=== PATIENT | female | born 1955 | race Caucasian/White ===

== ENCOUNTER → 2016-07-31 | Outpatient (CLI) | payer MEDICARE ==
--- NOTE | 2016-07-31 12:16 | XR ---
EXAMINATION TYPE: XR Hip Complete LT DATE OF EXAM ORDERED: 07/31/2016 12:07 PM HISTORY: M25.552 pain in left hip joint. COMPARISON: None. FINDINGS: There is mild superior joint space loss. There is some subchondral sclerosis of the acetab ulum. There is slight overgrowth of the acetabulum. No fracture, dislocation or other acute osseous l esion is seen. IMPRESSION: 1. NO ACUTE OSSEOUS LESION. 2. MILD DEGENERATIVE CHANGE.
== END | disposition home or self-care (01) ==
LOC: RADXRMAIN 11:57
PROVIDERS: ATTEND Internal Medicine
DX: M25.852 Other specified joint disorders, left hip (principal); M25.552 Pain in left hip
CPT/HCPCS: 73502

== ENCOUNTER → 2016-11-03 | Outpatient (CLI) | payer MEDICARE ==
--- NOTE | 2016-11-03 13:53 | NM ---
EXAMINATION TYPE: NM bone 3 phase DATE OF EXAM: 11/03/2016 COMPARISON: NONE HISTORY: Open sore on the right foot. Triple phase bone scintigraphy was performed following the injection of25.7 mCi Tc 99m MDP. Immediat e images and 5 hours post injection images acquired. FINDINGS: There is increased flow and pool activity in the medial aspect of the right ankle. Delayed static activity shows a great deal of abnormal activity overlying the right forefoot. IMPRESSION: I CANNOT EXCLUDE OSTEOMYELITIS INVOLVING THE PROXIMAL RIGHT FOREFOOT.
== END | disposition home or self-care (01) ==
LOC: RADNMMAIN 07:44
PROVIDERS: ATTEND Podiatrist
DX: M86.8X8 Other osteomyelitis, other site (principal)
CPT/HCPCS: 78315; A9503

== ENCOUNTER → 2016-11-10 | Outpatient (CLI) | payer MEDICARE ==
--- NOTE | 2016-11-10 12:03 | US ---
LOWER EXTREMITY VENOUS INSUFFICIENCY SIDE PERFORMED: Bilateral 1) Color flow is present and patency is documented in the following vessels. No DVT or SVT is noted . EIV Common Femoral Vein Deep Femoral Vein Femoral Vein Popliteal Vein Proximal Calf Veins Greater Saph Vein Upper Small Saph Vein 2) No venous reflux noted. IMPRESSION: doppler imaging performed of the deep veins of the lower extremities. There is normal fl ow, compressibility, vascular waveforms bilaterally. No deep venous thrombosis or evident venous refl ux.
--- NOTE | 2016-11-15 10:18 | P.ARTDOP ---
Arterial Doppler LOWER EXTREMITY ARTERIAL DOPPLER: DATE OF SERVICE: 11/10/2016 Reason for study: Bilateral leg pain, right foot ulcer. Doppler waveforms: Multiphasic bilaterally throughout. Pulse volume recording: Normal configuration throughout. Pressure gradients: None. Ankle-brachial indices: Greater than 1 bilaterally. Toe pressures: 91 on the right, 126 on the left Impression: Normal study.
== END | disposition home or self-care (01) ==
LOC: RADUSWWP 09:03
PROVIDERS: ATTEND Podiatrist
DX: R22.41 Localized swelling, mass and lump, right lower limb (principal); M79.605 Pain in left leg; E63.8 Other specified nutritional deficiencies; E13.621 Other specified diabetes mellitus with foot ulcer
CPT/HCPCS: 93923; 93970

== ENCOUNTER → 2016-12-05 | Outpatient (CLI) | payer MEDICARE ==
[2016-12-05 17:13] LABS: Non-African American GFR(MDRD) >60 (>60 ml/min/1.73 sqM)
== END | disposition home or self-care (01) ==
LOC: LABWHC1 16:37
PROVIDERS: ATTEND Podiatrist
DX: Z01.812 Encounter for preprocedural laboratory examination (principal)
CPT/HCPCS: 36415; 82565

== ENCOUNTER → 2016-12-08 | Outpatient (CLI) | payer MEDICARE ==
--- NOTE | 2016-12-08 16:17 | MR ---
EXAMINATION TYPE: MR foot RT wo/w con DATE OF EXAM: 12/08/2016 COMPARISON: Three-phase bone scan dated 11/03/2016. Radiographs of the right foot dated 10/20/2016. HISTORY: Osteomyelitis per order. Nonhealing wound. CONTRAST: Standard multiplanar, multisequence MRI departmental protocol utilizing 10 mL intravenous MultiHance gadolinium contrast. FINDINGS: There is susceptibility artifact from the medial fixation plate and transcortical screws obscuring vi sualization of the first metatarsal phalangeal joint and proximal metatarsal. Surrounding heterotopic ossification is present. Additionally susceptibility artifact from fusion hardware of the second pro ximal interphalangeal joint also limits evaluation of this region. Hypertrophic osseous and extensive arthropathy at the second metatarsophalangeal joint is demonstrated as on the prior radiograph. Low T1 signal is seen within the subcutaneous soft tissues directly inferior and lateral to the dista l first metatarsal and metatarsal phalangeal joint. No subcutaneous emphysema is seen within the soft tissue swelling. No abnormal bone marrow signal is seen of the first distal metatarsal or proximal p halanx to suggest bone marrow replacement process such as osteomyelitis. Some enhancement is seen of the subcutaneous soft tissue swelling, which likely relates to hyperemia and increased vascular perme ability. Similar change is seen at the base of the proximal phalanx dorsally without abnormal T1 sign al of the adjacent phalanx. Osseous cystic changes at the first metatarsophalangeal joint, second metatarsophalangeal joint and t alar dome posteriorly are present from degenerative change. Flexor and extensor tendons as well as tendons of the lateral compartment appear overall intact. Achi lles tendon is also intact. Spring ligament, anterior talofibular ligament, and posterior talofibular ligament also appear intact. Lisfranc ligament is difficult to visualize secondary to susceptibility artifact. IMPRESSION: 1. Phlegmonous and subcutaneous soft tissue swelling focally directly inferior and lateral to the dis serg first metatarsal and metatarsophalangeal joint and at the dorsal aspect of the first metatarsal p halangeal joint with no abnormal underlying bone marrow signal of the adjacent osseous structures to suggest osteomyelitis. Mild enhancement of the soft tissues is seen which likely relates to local hyp eremia and increased vascular permeability. 2. Limited visualization of the proximal first metatarsal and second proximal interphalangeal joint s econdary to susceptibility artifact generated by surgical hardware. 3. Osteochondral defect of the posterior lateral talar dome measuring 6 mm and second area of subchon dral bone marrow edema which may relate to a second osteochondral defect of the posterior mid talar d ome. Stability is uncertain given the technique. If there is clinical concern for instability MR ankl e could be performed.
== END | disposition home or self-care (01) ==
LOC: RADMRIMAIN 14:39
PROVIDERS: ATTEND Internal Medicine Infectious Disease
DX: M21.961 Unspecified acquired deformity of right lower leg (principal); R22.41 Localized swelling, mass and lump, right lower limb
CPT/HCPCS: 73720; A9577

== ENCOUNTER → 2019-09-16 | Outpatient (CLI) | payer MEDICARE ==
--- NOTE | 2019-09-16 11:55 | XR ---
EXAMINATION TYPE: XR chest 2V DATE OF EXAM: 09/16/2019 COMPARISON: 02/06/2012 INDICATION: Community-acquired pneumonia TECHNIQUE: Frontal and lateral views of the chest are obtained. FINDINGS: The heart size is normal. The pulmonary vasculature is normal. Suspicious infiltrates are not evident. Note is made of bilateral shoulder prostheses. IMPRESSION: 1. No acute pulmonary process.
== END | disposition home or self-care (01) ==
LOC: RADXRMAIN 11:33
PROVIDERS: ATTEND Internal Medicine
DX: J18.9 Pneumonia, unspecified organism (principal)
CPT/HCPCS: 71046

== ENCOUNTER 2019-10-26 11:00 | Inpatient (IN) | payer MEDICARE ==
[2019-10-26] MEDS ORDERED: ACETAMINOPHEN TAB 500 MG TAB PO STA (11:16)
[2019-10-26] MEDS ORDERED: IPRATROPIUM-ALBUTEROL 3 ML NEB INHALATION STA ×2 (11:20→13:55)
--- NOTE | 2019-10-26 11:24 | ED ---
General Adult HPI - General Source: patient, RN notes reviewed, old records reviewed Mode of arrival: wheelchair Limitations: no limitations <Leslie Kramer - Last Filed: 10/26/19 14:14> <Jun Davis - Last Filed: 10/26/19 14:47> - General Chief complaint: Fever Stated complaint: fall, back pain Time Seen by Provider: 10/26/19 11:06 - History of Present Illness Initial comments: Patient is a 64-year-old female who presents emergency department today for evaluation with complaint of fall on Sunday after slightly slipped on a tote bag. Patient reports she fell onto her back and hit her right ribs. She repo rts that she's been having some pain with movement difficulty breathing since that time. Patient was also found to have a fever upon arrival to the emergency department of 103. She complains of feeling dehydrated. She denies any specific abdominal pain. She reports that she was recently treated for pneumonia. She is also had a history of hysterectomy in July and developed the pneumonia afterward. She reports she's been treated with this for with antibiotics. She also has a boot on the right leg for a chronic wound. At this time Patient states she is not taking anything for pain. (Leslie Kramer) - Related Data Home Medications Medication Instructions Recorded Confirmed ALPRAZolam 1 mg PO DAILY PRN 10/20/16 10/26/19 DULoxetine HCL [Cymbalta] 120 mg PO HS 10/20/16 10/26/19 Pramipexole [Mirapex] 1 mg PO HS 10/20/16 10/26/19 lamoTRIgine 150 mg PO HS 10/20/16 10/26/19 Albuterol Sulfate [Ventolin HFA] 1 - 2 puff INHALATION RT-Q6H PRN 10/26/19 10/26/19 Aspirin EC [Ecotrin Low Dose] 81 mg PO HS 10/26/19 10/26/19 Biotin 5 mg PO DAILY 10/26/19 10/26/19 Fluticasone/Vilanterol [Breo 1 puff INHALATION RT-DAILY 10/26/19 10/26/19 Ellipta 100-25 Mcg Inhaler] INSULIN ASPART (NovoLOG) [NovoLOG 8 unit SQ TID BETWEEN MEALS 10/26/19 10/26/19 (formulary)] INSULIN ASPART (NovoLOG) [NovoLOG 16 unit SQ AC-TID 10/26/19 10/26/19 (formulary)] Insulin Glargine,Hum.rec.anlog 40 unit SQ HS 10/26/19 10/26/19 [Lantus Solostar] Losartan Potassium [Cozaar] 25 mg PO HS 10/26/19 10/26/19 Multivitamins, Thera [Multivitamin 1 tab PO DAILY 10/26/19 10/26/19 (formulary)] Pramipexole [Mirapex] 1 mg PO HS 10/26/19 10/26/19 hydrOXYzine HCL [Atarax] 20 mg PO HS 10/26/19 10/26/19 Allergies Allergy/AdvReac Type Severity Reaction Status Date / Time metformin AdvReac Intermediate Diarrhea Verified 10/26/19 11:28 Review of Systems ROS Other: All systems not noted in ROS Statement are negative. <Leslie Kramer - Last Filed: 10/26/19 14:14> ROS Other: All systems not noted in ROS Statement are negative. <Jun Davis - Last Filed: 10/26/19 14:47> ROS Statement: Those systems with pertinent positive or pertinent negative responses have been documented in the HPI. Past Medical History Past Medical History: Asthma, Heart Failure, Diabetes Mellitus, Osteoarthritis (OA), Sleep Apnea/CPAP/BIPAP Additional Past Medical History / Comment(s): DEPRESSION, ANXIETY,NEUROPATHY,RESTLESS LEG SYNDROME History of Any Multi-Drug Resistant Organisms: None Reported Past Surgical History: Cholecystectomy, Heart Catheterization, Orthopedic Gunjan eileen Additional Past Surgical History / Comment(s): ARTHROSCOPIC MENICUS REPAIN - 2006, TOTAL LEFT KNEE REPLACEMENT 2-2007,,REVERSE RT SHOULDER REPLACEMENT ,LEFT SHOULD REPLACEMENT 2011, BUNION REMOVAL, REPAIRED DISLOCATED SECOND TOE & hAMMER TOE MIDDLE TOE 2015, Past Anesthesia/Blood Transfusion Reactions: No Reported Reaction Past Psychological History: Anxiety, Depression Smoking Status: Current some day smoker - Past Family History Father Family Medical History: COPD Mother Family Medical History: COPD Sister(s) Family Medical History: COPD, Fibromyalgia, Myocardial Infarction (CA), Osteoarthritis (OA) Brother(s) Family Medical History: COPD <Leslie Kramer - Last Filed: 10/26/19 14:14> General Exam Limitations: no limitations General appearance: alert, in no apparent distress Head exam: Present: atraumatic Eye exam: Present: normal appearance, PERRL, EOMI. Absent: scleral icterus, conjunctival injection, periorbital swelling ENT exam: Present: normal exam Neck exam: Present: normal inspection. Absent: tenderness, meningismus, lymphadenopathy Respiratory exam: Present: wheezes (Chest wheezing bilaterally.). Absent: normal lung sounds bilaterally, respiratory distress, rales, rhonchi, stridor Cardiovascular Exam: Present: regular rate, normal rhythm, normal heart sounds. Absent: systolic murmur, diastolic murmur, rubs, gallop, clicks GI/Abdominal exam: Present: soft, normal bowel sounds. Absent: distended, tenderness, guarding, rebound, rigid Extremities exam: Present: normal inspection, full ROM, normal capillary refill. Absent: tenderness, pedal edema, joint swelling, calf tenderness Right Lower Leg exam: Present: normal inspection, full ROM Ankle exam: Present: normal inspection, full ROM Foot/Toe exam: Present: full ROM. Absent: normal inspection (Patient has 2 separate foot ulcerations measuring 2 cm x 3 cm over the plantar distal metatarsals. No significant drainage. There is warm surrounding the foot.) Neurovascular tendon exam: Present: no vascular compromise Gait: observed and normal Back exam: Present: normal inspection Neurological exam: Present: alert, oriented X3, CN II-XII intact Psychiatric exam: Present: normal affect, normal mood Skin exam: Present: warm, dry, intact, normal color. Absent: rash <Leslie Kramer - Last Filed: 10/26/19 14:14> - General Exam Comments Initial Comments: 64-year-old female. Alert and oriented. (Leslie Kramer) Course <Jun Davis - Last Filed: 10/26/19 14:47> Vital Signs 10/26/19 10/26/19 10/26/19 11:03 12:07 12:12 Temperature 102.7 F H Pulse Rate 122 H 102 H 106 H Respiratory 26 H 20 Rate Blood Pressure 127/68 O2 Sat by Pulse 94 L 98 Oximetry 10/26/19 10/26/19 10/26/19 12:21 12:51 13:45 Temperature 101 F H 99.3 F Pulse Rate 111 H 103 H 101 H Respiratory 20 20 Rate Blood Pressure 138/116 126/80 O2 Sat by Pulse 93 L 95 Oximetry 10/26/19 10/26/19 14:09 14:27 Temperature Pulse Rate 113 H 98 Respiratory Rate Blood Pressure O2 Sat by Pulse Oximetry - Reevaluation(s) Reevaluation #1: 10/26/19 14:45 Patient does meet sepsis criteria diagnosed at 1445. Blood culture and IV fluid bolus has been ordered off of ideal body weight of 64 kg. IV antibiotics ordered. (Jun Davis) Medical Decision Making - Lab Data Result diagrams: 10/26/19 11:22 10/26/19 11:22 - Radiology Data Radiology results: report reviewed <Leslie Kramer - Last Filed: 10/26/19 14:14> - Lab Data Result diagrams: 10/26/19 11:22 10/26/19 11:22 - Radiology Data Radiology results: report reviewed (Computed tomography scan of abdomen and pelvis shows possible colitis. Tiny kidney lesion. CT angios of the chest negative for PE.), image reviewed (Chest x-ray shows no acute process) <Jun Davis - Last Filed: 10/26/19 14:47> - Medical Decision Making 8-year-old female presents emergency department initial chief complaint of fall on Sunday and right-sided back pain. Pain is worse with certain movements. Patient arrived to emergency Department with fever 103+ cardiac and hypoxic. She has history of asthma and was wheezing. Patient does report a recent surgical history and initial concern was for possible PE. Lab work was obtained. She does have significant leukocytosis and a positive d-dimer. CT chest injury was completed as well as abdomen and pelvis. This was negative for PE. CT on pelvis is currently pending upon sign out to Dr. Davis. I did give the Patient 1 g of Rocephin at this time and was given a 2 L bolus. Patient was given breathing treatments with her known history of asthma. Patient was tested for Covid. also has evidence of diabetic ulcers over the right foot which she is in a walking boot. Culture was completed for this as well. (Leslie Kramer) Patient reexamined and reevaluated by myself, Dr. Davis. Patient resting comfortably in bed. Patient does have right foot ulcer, stage II/stage III however there is not surrounding evidence of cellulitis or infection. Patient updated on results and plan. Case was discussed in detail with Dr. Lamb, who will admit for hospital call. Patient will be treated for colitis. There is still moderate concern for possible coronavirus. Admission orders written. (Jun Davis) - Lab Data Lab Results 10/26/19 10/26/19 10/26/19 Range/Units 11:22 11:22 11:22 WBC 18.7 H (3.8-10.6) k/uL RBC 4.57 (3.80-5.40) m/uL Hgb 13.7 (11.4-16.0) gm/dL Hct 39.9 (34.0-46.0) % MCV 87.3 (80.0-100.0) fL MCH 30.0 (25.0-35.0) pg MCHC 34.4 (31.0-37.0) g/dL RDW 13.9 (11.5-15.5) % Plt Count 256 (150-450) k/uL Neutrophils % 92 % Lymphocytes % 3 % Monocytes % 4 % Eosinophils % 1 % Basophils % 0 % Neutrophils # 17.2 H (1.3-7.7) k/uL Lymphocytes # 0.5 L (1.0-4.8) k/uL Monocytes # 0.7 (0-1.0) k/uL Eosinophils # 0.2 (0-0.7) k/uL Basophils # 0.1 (0-0.2) k/uL PT 10.9 (9.0-12.0) sec INR 1.1 (<1.2) APTT 24.5 (22.0-30.0) sec D-Dimer 1.54 H (<0.60) mg/L FEU Sodium 130 L (137-145) mmol/L Potassium 4.7 (3.5-5.1) mmol/L Chloride 97 L (98-107) mmol/L Carbon Dioxide 21 L (22-30) mmol/L Anion Gap 12 mmol/L BUN 21 H (7-17) mg/dL Creatinine 1.16 H (0.52-1.04) mg/dL Est GFR (CKD-EPI)AfAm 59 (>60 ml/min/1.73 sqM) Est GFR (CKD-EPI)NonAf 51 (>60 ml/min/1.73 sqM) Glucose 268 H (74-99) mg/dL Plasma Lactic Acid Jan (0.7-2.0) mmol/L Calcium 9.4 (8.4-10.2) mg/dL Magnesium 1.3 L (1.6-2.3) mg/dL Total Bilirubin 1.2 (0.2-1.3) mg/dL AST 36 (14-36) U/L ALT 19 (4-34) U/L Alkaline Phosphatase 82 (38-126) U/L Lactate Dehydrogenase 836 H (313-618) U/L Troponin I (0.000-0.034) ng/mL C-Reactive Protein 192.3 H (<10.0) mg/L NT-Pro-B Natriuret Pep pg/mL Total Protein 7.9 (6.3-8.2) g/dL Albumin 4.4 (3.5-5.0) g/dL Urine Color Urine Appearance (Clear) Urine pH (5.0-8.0) Ur Specific Darling (1.001-1.035) Urine Protein (Negative) Urine Glucose (UA) (Negative) Urine Ketones (Negative) Urine Blood (Negative) Urine Nitrite (Negative) Urine Bilirubin (Negative) Urine Urobilinogen (<2.0) mg/dL Ur Leukocyte Esterase (Negative) Urine RBC (0-5) /hpf Urine WBC (0-5) /hpf Ur Squamous Epith Cells (0-4) /hpf Hyaline Casts (0-2) /lpf Urine Mucus (None) /hpf 10/26/19 10/26/19 10/26/19 Range/Units 11:22 11:22 11:22 WBC (3.8-10.6) k/uL RBC (3.80-5.40) m/uL Hgb (11.4-16.0) gm/dL Hct (34.0-46.0) % MCV (80.0-100.0) fL MCH (25.0-35.0) pg MCHC (31.0-37.0) g/dL RDW (11.5-15.5) % Plt Count (150-450) k/uL Neutrophils % % Lymphocytes % % Monocytes % % Eosinophils % % Basophils % % Neutrophils # (1.3-7.7) k/uL Lymphocytes # (1.0-4.8) k/uL Monocytes # (0-1.0) k/uL Eosinophils # (0-0.7) k/uL Basophils # (0-0.2) k/uL PT (9.0-12.0) sec INR (<1.2) APTT (22.0-30.0) sec D-Dimer (<0.60) mg/L FEU Sodium (137-145) mmol/L Potassium (3.5-5.1) mmol/L Chloride (98-107) mmol/L Carbon Dioxide (22-30) mmol/L Anion Gap mmol/L BUN (7-17) mg/dL Creatinine (0.52-1.04) mg/dL Est GFR (CKD-EPI)AfAm (>60 ml/min/1.73 sqM) Est GFR (CKD-EPI)NonAf (>60 ml/min/1.73 sqM) Glucose (74-99) mg/dL Plasma Lactic Acid Jan 2.1 H* (0.7-2.0) mmol/L Calcium (8.4-10.2) mg/dL Magnesium (1.6-2.3) mg/dL Total Bilirubin (0.2-1.3) mg/dL AST (14-36) U/L ALT (4-34) U/L Alkaline Phosphatase (38-126) U/L Lactate Dehydrogenase (313-618) U/L Troponin I 0.022 (0.000-0.034) ng/mL C-Reactive Protein (<10.0) mg/L NT-Pro-B Natriuret Pep 539 pg/mL Total Protein (6.3-8.2) g/dL Albumin (3.5-5.0) g/dL Urine Color Urine Appearance (Clear) Urine pH (5.0-8.0) Ur Specific Darling (1.001-1.035) Urine Protein (Negative) Urine Glucose (UA) (Negative) Urine Ketones (Negative) Urine Blood (Negative) Urine Nitrite (Negative) Urine Bilirubin (Negative) Urine Urobilinogen (<2.0) mg/dL Ur Leukocyte Esterase (Negative) Urine RBC (0-5) /hpf Urine WBC (0-5) /hpf Ur Squamous Epith Cells (0-4) /hpf Hyaline Casts (0-2) /lpf Urine Mucus (None) /hpf 10/26/19 Range/Units 13:48 WBC (3.8-10.6) k/uL RBC (3.80-5.40) m/uL Hgb (11.4-16.0) gm/dL Hct (34.0-46.0) % MCV (80.0-100.0) fL MCH (25.0-35.0) pg MCHC (31.0-37.0) g/dL RDW (11.5-15.5) % Plt Count (150-450) k/uL Neutrophils % % Lymphocytes % % Monocytes % % Eosinophils % % Basophils % % Neutrophils # (1.3-7.7) k/uL Lymphocytes # (1.0-4.8) k/uL Monocytes # (0-1.0) k/uL Eosinophils # (0-0.7) k/uL Basophils # (0-0.2) k/uL PT (9.0-12.0) sec INR (<1.2) APTT (22.0-30.0) sec D-Dimer (<0.60) mg/L FEU Sodium (137-145) mmol/L Potassium (3.5-5.1) mmol/L Chloride (98-107) mmol/L Carbon Dioxide (22-30) mmol/L Anion Gap mmol/L BUN (7-17) mg/dL Creatinine (0.52-1.04) mg/dL Est GFR (CKD-EPI)AfAm (>60 ml/min/1.73 sqM) Est GFR (CKD-EPI)NonAf (>60 ml/min/1.73 sqM) Glucose (74-99) mg/dL Plasma Lactic Acid Jan (0.7-2.0) mmol/L Calcium (8.4-10.2) mg/dL Magnesium (1.6-2.3) mg/dL Total Bilirubin (0.2-1.3) mg/dL AST (14-36) U/L ALT (4-34) U/L Alkaline Phosphatase (38-126) U/L Lactate Dehydrogenase (313-618) U/L Troponin I (0.000-0.034) ng/mL C-Reactive Protein (<10.0) mg/L NT-Pro-B Natriuret Pep pg/mL Total Protein (6.3-8.2) g/dL Albumin (3.5-5.0) g/dL Urine Color Yellow Urine Appearance Clear (Clear) Urine pH 5.5 (5.0-8.0) Ur Specific Darling 1.049 H (1.001-1.035) Urine Protein Trace H (Negative) Urine Glucose (UA) Negative (Negative) Urine Ketones Trace H (Negative) Urine Blood Moderate H (Negative) Urine Nitrite Negative (Negative) Urine Bilirubin Negative (Negative) Urine Urobilinogen <2.0 (<2.0) mg/dL Ur Leukocyte Esterase Negative (Negative) Urine RBC 2 (0-5) /hpf Urine WBC 2 (0-5) /hpf Ur Squamous Epith Cells 3 (0-4) /hpf Hyaline Casts 10 H (0-2) /lpf Urine Mucus Rare H (None) /hpf 10/26/19 11:38 EKG performed at 11:22 AM shows sinus tachycardia with premature atrial complexes. Nonspecific interventricular block. Possible anterolateral infarct age undetermined. Abnormal EKG. Ventricular rate of 112 bpm. Was 176 ms. QS duration is 128 ms. QT QTc is 350/447 seconds. (Leslie Kramer) - Radiology Data Chest x-rays negative for intrathoracic disease. CT chest injury is negative for PE. No pleural or pericardial effusion. Heart is minimally prominent. (Leslie Kramer) Critical Care Time Critical Care Time: Yes Total Critical Care Time: 32 <Jun Davis - Last Filed: 10/26/19 14:47> Disposition <Leslie Kramer - Last Filed: 10/26/19 14:14> Is patient prescribed a controlled substance at d/c from ED?: No Decision Time: 14:46 <Jun Davis - Last Filed: 10/26/19 14:47> Clinical Impression: Sepsis, Colitis Disposition: ADMITTED IP TO THIS HOSP Referrals: Román Haed MD [Primary Care Provider] - 1-2 days
[2019-10-26] MEDS: SODIUM CHLORIDE 0.9% 500 ML 500 ML IV SCH ×4 (12:04→14:38)
[2019-10-26 12:14] LABS: Basophils # (A) 0.1 k/uL (0-0.2); Basophils % (A) 0 %; Eosinophils # (A) 0.2 k/uL (0-0.7); Eosinophils % (A) 1 %; HCT 39.9 % (34.0-46.0); HGB 13.7 gm/dL (11.4-16.0); Lymphocytes # (A) 0.5 k/uL (1.0-4.8); Lymphocytes % (A) 3 %; MCHC 34.4 g/dL (31.0-37.0); MCV 87.3 fL (80.0-100.0); Mean Platelet Volume 7.3; Monocytes # (A) 0.7 k/uL (0-1.0); Monocytes % (A) 4 %; Neutrophils # (A) 17.2 k/uL (1.3-7.7); Neutrophils % (A) 92 %; Platelet Count 256 k/uL (150-450); RBC 4.57 m/uL (3.80-5.40); RDW 13.9 % (11.5-15.5); WBC 18.7 k/uL (3.8-10.6)
--- NOTE | 2019-10-26 12:17 | XR ---
EXAMINATION TYPE: XR chest 2V DATE OF EXAM: 10/26/2019 HISTORY: fever, rib pain. REFERENCE: Previous study dated 09/16/2019. FINDINGS: There are bilateral shoulder arthroplasties in place. Heart size upper limits of normal. The lungs are clear. Pleural spaces are clear. IMPRESSION: NO ACTIVE INTRATHORACIC DISEASE.
[2019-10-26] MEDS ORDERED: MORPHINE SULFATE 4 MG/ML SYRINGE IVP STA (12:28)
[2019-10-26 12:30] LABS: Albumin 4.4 g/dL (3.5-5.0); Calcium 9.4 mg/dL (8.4-10.2); Magnesium 1.3 mg/dL (1.6-2.3); Potassium 4.7 mmol/L (3.5-5.1); Total Bilirubin 1.2 mg/dL (0.2-1.3); Total Protein 7.9 g/dL (6.3-8.2)
[2019-10-26 12:38] LABS: INR 1.1 (<1.2); Partial Thromboplastin Time 24.5 sec (22.0-30.0); Prothrombin Time 10.9 sec (9.0-12.0)
[2019-10-26] MEDS ORDERED: cefTRIAXone IN SWFI 1,000 MG/10 ML SYRINGE IVP STA (12:46)
[2019-10-26 12:48] LABS: D-Dimer 1.54 mg/L FEU (<0.60)
[2019-10-26] MEDS ORDERED: IBUPROFEN 600 MG TAB PO STA (12:50)
[2019-10-26 12:59] LABS: C Reactive Protein 192.3 mg/L (<10.0)
--- NOTE | 2019-10-26 13:52 | CT ---
EXAMINATION TYPE: CT chest angio for PE DATE OF EXAM: 10/26/2019 COMPARISON: None. HISTORY: Positive d-dimer, right back pain, fall CT DLP: 3376.1 mGycm Automated exposure control for dose reduction was used. CONTRAST: CT Chest for pulmonary embolism performed with without and with IV Contrast, patient injected with 10 0 ml mL of Isovue 370. FINDINGS: There are bilateral shoulder prostheses in place. There is atelectatic change present at jacqueline th lung bases. There is no significant axillary, mediastinal, internal mammary or hilar adenopathy. There is no evidence of pulmonary embolus. The aorta is normal in caliber without evidence of dissection. There is no pleural or pericardial fluid. The heart is minimally prominent. Visualized portions of the upper abdomen are unremarkable. IMPRESSION: THIS EXAMINATION IS NEGATIVE FOR PULMONARY EMBOLUS.
[2019-10-26] MEDS ORDERED: ALBUTEROL NEBULIZED 2.5 MG/3 ML INHALATION STA (13:55)
[2019-10-26 14:02] LABS: Appearance,Urine Clear (Clear); Bilirubin,Urine Negative (Negative); Blood,Urine Moderate (Negative); Color,Urine Yellow; Glucose,Urine (UA) Negative (Negative); Hyaline Casts,Urine 10 /lpf (0-2); Ketones,Urine Trace (Negative); Leukocyte Esterase,Urine Negative (Negative); Mucus,Urine Rare /hpf; Nitrite,Urine Negative (Negative); PH, Urine 5.5 (5.0-8.0); Protein,Urine Trace (Negative); RBC,Urine 2 /hpf (0-5); Squamous Epithelial Cell,Urine 3 /hpf (0-4); Urobilinogen,Urine <2.0 mg/dL (<2.0); WBC,Urine 2 /hpf (0-5)
--- NOTE | 2019-10-26 14:11 | CT ---
EXAMINATION TYPE: CT abdomen pelvis w con DATE OF EXAM: 10/26/2019 REFERENCE: NONE HISTORY: positive d-dimer, right back pain HISTORY: Positive D-dimer, right back pain CT DLP: 3376.1 mGy Automated exposure control for dose reduction was used. TECHNIQUE: Helical acquisition through the abdomen and pelvis was obtained following the oral ingesti on of without Oral Contrast and following intravenous administration of 100 ml mL of Isovue 370. The data was reformatted in axial, coronal and sagittal projections. FINDINGS: There is dependent atelectasis in the dependent portions of both lungs. There is no pleura l or pericardial fluid. The heart is mildly enlarged. There is a partial eventration of the right hemidiaphragm. The gallbladder is been removed. The liver is enlarged measuring 20 cm. The spleen is unremarkable. Both adrenal glands are normal. Both kidneys demonstrate function right kidney is normal. There is a low attenuating, 7 mm lesion in the mid polar region of the left kidney too small accurately characterize. This is likely a small cys t. The pancreas is unremarkable. There is no significant retroperitoneal, iliac or inguinal adenopathy. The bladder is unremarkable. There is some thickening of the sigmoid: In part of the descending colon. This makes assessment of th e bowel wall difficult. It would be difficult to exclude colitis. The appendix is unremarkable. Small bowel loops are of normal caliber. There is no free fluid and no free air. There is degenerative disc disease, facet arthropathy and mil d hypertrophic spondylosis within the spine. IMPRESSION: 1. SOME THICKENING OF THE LEFT SIDE OF THE COLON. PLEASE CORRELATE TO EXCLUDE COLITIS. 2. MILD CARDIOMEGALY. 3. HEPATOMEGALY. 4. TINY LESION IN THE MID POLAR REGION OF THE LEFT KIDNEY TOO SMALL TO CHARACTERIZE. THIS COULD BE FU RTHER INVESTIGATED WITH ULTRASOUND. 5. DEGENERATIVE CHANGES WITHIN THE SPINE.
[2019-10-26 14:15] LABS: Specific Gravity,Urine 1.049 (1.001-1.035)
[2019-10-26] MEDS ORDERED: NALOXONE 0.4 MG/ML 1 ML VIAL IV PRN (14:48)
[2019-10-26] MEDS: SODIUM CHLORIDE 0.9% 1,000 ML IV SCH (15:11)
--- NOTE | 2019-10-26 15:27 | XR ---
EXAMINATION TYPE: XR foot complete RT DATE OF EXAM: 10/26/2019 COMPARISON: 10/20/2016 HISTORY: Nonhealing wound TECHNIQUE: 3 views. There is moderate spurring at the first and second MP joints. There is previous surgery with plates f ixating the first and second metatarsals. There is a pain in the proximal phalanx of the second toe. There is a plantar calcaneal spur. There is some soft tissue swelling of the forefoot. Impression Foot surgery. Mild soft tissue swelling. No definite sign of osteomyelitis. There is progression of t he arthritic disease at the first MP joint compared to old exam.
[2019-10-26] MEDS ORDERED: AMPICILLIN-SULBACTAM 3 GM in SODIUM CHLORIDE 0.9% 100 ML IVPB SCH (16:00)
[2019-10-26] MEDS: MORPHINE SULFATE 4 MG/ML SYRINGE IV PRN (17:01)
[2019-10-26] MEDS ORDERED: VANCOMYCIN IV PER PHARMACY 1 EACH MISC MISCELLANE PRN (17:15)
[2019-10-26] MEDS ORDERED: ONDANSETRON 4 MG/2 ML VIAL IVP PRN (17:43)
[2019-10-26] MEDS ORDERED: MELATONIN 3 MG TABLET PO PRN (17:43)
[2019-10-26] MEDS ORDERED: VANCOMYCIN 2,000 MG in SODIUM CHLORIDE 0.9% 500 ML 500 ML IVPB ONE (17:45)
[2019-10-26] MEDS ORDERED: ALBUTEROL NEBULIZED 2.5 MG/3 ML INHALATION PRN (17:48)
[2019-10-26] MEDS ORDERED: CYCLOBENZAPRINE 5 MG TAB PO PRN (17:48)
--- NOTE | 2019-10-26 17:51 | P.HPIM ---
History of Present Illness H&P Date: 10/26/19 Chief Complaint: right rib pain Patient is a 64-year-old female history of heart failure, diabetes mellitus, obstructive sleep apnea, and arthritis who presented to the emergency department with complaints of pain in her ribs and back with movement and noelle athing. On arrival to the ER she was found be febrile with a temperature of 102.7, pulse 122, respirations 26, and blood pressure 127/68. Laboratory analysis showed white blood cell count of 18.7 with lymphopenia of 0.5, d-dimer 1.54, sodium 130, BUN 21, creatinine 1.16, lactic acid 2.1, magnesium 1.3, LDH 836, CRP 192, troponin negative, BNP 539. Urinalysis is negative. Chest x-ray showed no active intrathoracic disease. CT of the chest showed no evidence of pulmonary embolism and no acute intrathoracic process. CT of the abdomen and pelvis showed left-sided thickening of the colon with probable colitis, mild cardiomegaly, hepatomegaly, and a lesion in the left kidney too small to tri racterize along with degenerative changes in the spine. Right foot x-ray did not sow any osteomyelitis, but did demonstrate mild soft tissue swelling. Fall 2 days ago due to catching her L foot on a plastic tote bag. Fell on to her butt. Now right sided back and rib pain worse with movement that has been increasing. Was able to take some percocet at home and tried her TENS unit neither of which help. Worse with movement and deep breathing. Fevers starting last evening 103 at home. No shortness of breath + cough, white in color X 2 days No runny/ stuffy nose, + purulent drainage from eye No N/V, No D/C, No change in Urination 2 wounds on bottom of the right foot, due to have skin grafts in october, Related to diabetic neuropathy No AMAYA, + some neck pain related to fall. No chest pain. No fainting or syncope. Hysterectomy in July and pneumonia after wards. Dr. 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 Lives alone, no known COVID Contacts. Review of Systems Pertinent positives and negatives as discussed in HPI, a complete review of systems was performed and all other systems are negative. Past Medical History Past Medical History: Asthma, Heart Failure, Diabetes Mellitus, Osteoarthritis (OA), Sleep Apnea/CPAP/BIPAP Additional Past Medical History / Comment(s): DEPRESSION, ANXIETY,NEUROPATHY,RESTLESS LEG SYNDROME History of Any Multi-Drug Resistant Organisms: None Reported Past Surgical History: Cholecystectomy, Heart Catheterization, Orthopedic Surgery Additional Past Surgical History / Comment(s): ARTHROSCOPIC MENICUS REPAIN - 2006, TOTAL LEFT KNEE REPLACEMENT 2-2007,,REVERSE RT SHOULDER REPLACEMENT ,LEFT SHOULD REPLACEMENT 2011, BUNION REMOVAL, REPAIRED DISLOCATED SECOND TOE & hAMMER TOE MIDDLE TOE 2015, RIGHT TOTAL KNEE Past Anesthesia/Blood Transfusion Reactions: No Reported Reaction Past Psychological History: Anxiety, Depression Smoking Status: Current some day smoker Past Alcohol Use History: Occasional Additional History: Lives alone. No cane or walker - Past Family History Father Family Medical History: COPD Mother Family Medical History: COPD Sister(s) Family Medical History: COPD, Fibromyalgia, Myocardial Infarction ([place]), Osteoarthritis (OA) Brother(s) Family Medical History: COPD Medications and Allergies Home Medications Medication Instructions Recorded Confirmed Type ALPRAZolam 1 mg PO DAILY PRN 10/20/16 10/26/19 History DULoxetine HCL [Cymbalta] 120 mg PO HS 10/20/16 10/26/19 History Pramipexole [Mirapex] 1 mg PO HS 10/20/16 10/26/19 History lamoTRIgine 150 mg PO HS 10/20/16 10/26/19 History Albuterol Sulfate [Ventolin HFA] 1 - 2 puff INHALATION RT-Q6H PRN 10/26/19 10/26/19 History Aspirin EC [Ecotrin Low Dose] 81 mg PO HS 10/26/19 10/26/19 History Biotin 5 mg PO DAILY 10/26/19 10/26/19 History Fluticasone/Vilanterol [Breo 1 puff INHALATION RT-DAILY 10/26/19 10/26/19 History Ellipta 100-25 Mcg Inhaler] INSULIN ASPART (NovoLOG) [NovoLOG 8 unit SQ TID BETWEEN MEALS 10/26/19 10/26/19 History (formulary)] INSULIN ASPART (NovoLOG) [NovoLOG 16 unit SQ AC-TID 10/26/19 10/26/19 History (formulary)] Insulin Glargine,Hum.rec.anlog 40 unit SQ HS 10/26/19 10/26/19 History [Lantus Solostar] Losartan Potassium [Cozaar] 25 mg PO HS 10/26/19 10/26/19 History Multivitamins, Thera [Multivitamin 1 tab PO DAILY 10/26/19 10/26/19 History (formulary)] Pramipexole [Mirapex] 1 mg PO HS 10/26/19 10/26/19 History hydrOXYzine HCL [Atarax] 20 mg PO HS 10/26/19 10/26/19 History Allergies Allergy/AdvReac Type Severity Reaction Status Date / Time metformin AdvReac Intermediate Diarrhea Verified 10/26/19 11:28 Physical Exam Osteopathic Statement: *. No significant issues noted on an osteopathic structural exam other than those noted in the History and Physical/Consult. Vitals: Vital Signs Temp Pulse Resp BP Pulse Ox 10/26/19 15:00 101 H 18 115/73 97 10/26/19 14:27 98 10/26/19 14:09 113 H 10/26/19 13:45 99.3 F 101 H 20 126/80 95 10/26/19 12:51 101 F H 103 H 20 138/116 93 L 10/26/19 12:21 111 H 10/26/19 12:12 106 H 10/26/19 12:07 102 H 20 98 10/26/19 11:03 102.7 F H 122 H 26 H 127/68 94 L Intake and Output 10/26/19 10/26/19 10/26/19 06:59 14:59 22:59 Other: Weight 136.078 kg General: ill appearing, mild distress, appears at stated age, obese Derm: 2 lesions right foot approx quarter to half dollar sized with serous drainage and in boot, warm, dry Head: atraumatic, normocephalic, symmetric Eyes: EOMI, no lid lag, anicteric sclera, pupils equal round reactive to light ENT: Nose and ears atraumatic, no thrush, no pharyngeal erythema Neck: No thyromegaly, no cervical lymphadenopathy, trachea midline, supple Mouth: no lip lesion, mucus membranes moist Cardiovascular: S1S2 reg, no murmur, positive posterior tibial pulse bilateral, no edema, capillary refill less than 2 seconds Lungs: Decreased bs bilateral, no rhonchi, no rales , no accessory muscle use Abdominal: soft, nontender to palpation, no guarding, no appreciable organomegaly, normal bowel sounds Ext: no gross muscle atrophy, muscle strength 5 out of 5 in all 4 extremities grossly, no contractures, Neuro: CN II-XI grossly intact, light touch intact all 4 extremities, finger to nose within normal limits, Psych: Alert, oriented, appropriate affect Back: No spinous process tenderness, + muscle spasm right flank, no rib point tenderness Results CBC & Chem 7: 10/26/19 11:22 10/26/19 11:22 Labs: Abnormal Lab Results - Last 24 Hours (Table) 10/26/19 10/26/19 10/26/19 Range/Units 11:22 11:22 11:22 WBC 18.7 H (3.8-10.6) k/uL Neutrophils # 17.2 H (1.3-7.7) k/uL Lymphocytes # 0.5 L (1.0-4.8) k/uL D-Dimer 1.54 H (<0.60) mg/L FEU Sodium 130 L (137-145) mmol/L Chloride 97 L (98-107) mmol/L Carbon Dioxide 21 L (22-30) mmol/L BUN 21 H (7-17) mg/dL Creatinine 1.16 H (0.52-1.04) mg/dL Glucose 268 H (74-99) mg/dL Plasma Lactic Acid Jan (0.7-2.0) mmol/L Magnesium 1.3 L (1.6-2.3) mg/dL Lactate Dehydrogenase 836 H (313-618) U/L C-Reactive Protein 192.3 H (<10.0) mg/L Ur Specific [place] (1.001-1.035) Urine Protein (Negative) Urine Ketones (Negative) Urine Blood (Negative) Hyaline Casts (0-2) /lpf Urine Mucus (None) /hpf 10/26/19 10/26/19 Range/Units 11:22 13:48 WBC (3.8-10.6) k/uL Neutrophils # (1.3-7.7) k/uL Lymphocytes # (1.0-4.8) k/uL D-Dimer (<0.60) mg/L FEU Sodium (137-145) mmol/L Chloride (98-107) mmol/L Carbon Dioxide (22-30) mmol/L BUN (7-17) mg/dL Creatinine (0.52-1.04) mg/dL Glucose (74-99) mg/dL Plasma Lactic Acid Jan 2.1 H* (0.7-2.0) mmol/L Magnesium (1.6-2.3) mg/dL Lactate Dehydrogenase (313-618) U/L C-Reactive Protein (<10.0) mg/L Ur Specific [place] 1.049 H (1.001-1.035) Urine Protein Trace H (Negative) Urine Ketones Trace H (Negative) Urine Blood Moderate H (Negative) Hyaline Casts 10 H (0-2) /lpf Urine Mucus Rare H (None) /hpf Chest x-ray: report reviewed CT scan - abdomen: report reviewed CT scan - chest: report reviewed Assessment and Plan Assessment: Intractable back pain due to thorasic strain - Morphine - [place] - Flexaril SIRS undetermined etiology - My concern is osteomyelitis VS COVID, less likely coliting - CTA without pneumonia or Pulmonary embolism -CT abdomen and pelvis does show possible colitis. However patient without symptoms of colitis -Patient does have 2 right lower extremity wounds that they do not appear infected -Continue with Unasyn and vancomycin -Consult ID -Await blood cultures -Consider CT/MRI of right foot to evaluate for ostial -Repeat CRP in a.m. -Await Covid testing: Repeat LDH, d-dimer, ferritin, troponin, BNP, and CBC with differential -IV fluids Lactic acidosis -IV fluids -Folic acid until clear Hypomagnesemia -Replace and recheck in a.m. 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 Surrogate decision-maker: Brother CODE STATUS: Full DVT prophylaxis: SCDs Discussed with: Patient, nursing, ED physician Anticipated discharge date: 3-[address]: Home A total of 65 minutes was spent on the care of this complex patient more than 50% of the time was spent in counseling and care coordination.
[2019-10-26 18:14] LABS: Glucose,Whole Blood 183 mg/dL (75-99)
[2019-10-26] MEDS: MAGNESIUM SULFATE-D5W PMX 1 GM in DEXTROSE/WATER 1 100ML.BAG IVPB SCH ×3 (19:56→22:09)
[2019-10-26] MEDS: HYDROcodone/APAP 5-325MG 1 EACH TAB PO PRN (20:03)
[2019-10-26] MEDS: ALPRAZolam 1 MG TAB PO PRN (20:04)
[2019-10-26] MEDS: ALBUTEROL NEBULIZED 2.5 MG/3 ML INHALATION SCH ×2 (20:25→23:34)
[2019-10-26] MEDS: ACETAMINOPHEN TAB 325 MG TAB PO PRN (20:33)
[2019-10-26] MEDS ORDERED: PRAMIPEXOLE 1 MG TAB PO SCH (21:00)
[2019-10-26 22:14] LABS: Glucose,Whole Blood 289 mg/dL (75-99)
[2019-10-26] MEDS: INSULIN ASPART (NovoLOG) 100 UNIT/ML VIAL SQ SCH (22:24)
[2019-10-26] MEDS: PRAMIPEXOLE 1 MG TAB PO SCH (22:27)
[2019-10-26] MEDS: hydrOXYzine HCL 10 MG TAB PO SCH (22:27)
[2019-10-26] MEDS: ASPIRIN 81 MG PO SCH (22:28)
[2019-10-26] MEDS: INSULIN DETEMIR (LEVEMIR) 100 UNIT/ML SYR SQ SCH (22:36)
[2019-10-26] MEDS: DULoxetine HCL 60 MG CAPSULE.DR PO SCH (22:37)
[2019-10-26] MEDS: lamoTRIgine 100 MG TAB PO SCH (22:38)
[2019-10-26] MEDS: LOSARTAN 25 MG TAB PO SCH (22:39)
--- NOTE | 2019-10-26 23:35 | P.CONS ---
History of Present Illness - Reason for Consult Consult date: 10/26/19 Sepsis, no clear source Requesting physician: Sofia Lamb - Chief Complaint Fall 2 days ago right-sided back pain - History of Present Illness Patient is a 64-year-old female presenting to the hospital with chief complaints of pain in the upper back area that she has for the last 2 days it patient mentioned she did slipped on a total pack and fell backwards hitting her back since then she be compatible pain mostly in the upper midback area to be more of a dull aching 6-7 out of 10 and no radiation patient to denies having any headache or URI symptoms no chest pain or shortness of breath or cough no nausea no vomiting no abdominal pain no diarrhea no urinary symptoms patient also have a chronic nonhealing wound on the plantar aspect of the right foot with the patient is for couple of months now and is being treated by podiatry she not sure about her condition is specific dressing to the foot wound currently denies any pain into the foot wound area or any purulent drainage from it with the symptoms the patient has been evaluated by the physician on arrival to the patient did have a fever of 103F patient did have elevated white count of 18,000 with a left shift liver enzymes has been normal. UA was negative patient did have a CT angiogram that was negative for PE did not show any pneumonia or groundglass changes CT abdominal pelvis did show some features of her left-sided colitis the patient denies having any nausea vomiting no diarrhea , patient also have x-rays of the right foot did not show any bony changes tissue some soft tissue swelling, patient has been started on vancomycin and Unasyn and admitted to the hospital infectious disease was consulted for further management of antibiotic therapy Review of Systems Positive point has been mentioned in the HPI rest of the systems are negative Past Medical History Past Medical History: Asthma, Heart Failure, Diabetes Mellitus, Osteoarthritis (OA), Sleep Apnea/CPAP/BIPAP Additional Past Medical History / Comment(s): DEPRESSION, ANXIETY,NEUROPATHY,RESTLESS LEG SYNDROME History of Any Multi-Drug Resistant Organisms: None Reported Past Surgical History: Cholecystectomy, Heart Catheterization, Orthopedic Surgery Additional Past Surgical History / Comment(s): ARTHROSCOPIC MENICUS REPAIN 2006, TOTAL LEFT KNEE REPLACEMENT -2007,,REVERSE RT SHOULDER REPLACEMENT ,LEFT SHOULD REPLACEMENT 2011, BUNION REMOVAL, REPAIRED DISLOCATED SECOND TOE & hAMMER TOE MIDDLE TOE 2016, RIGHT TOTAL KNEE Past Anesthesia/Blood Transfusion Reactions: No Reported Reaction Past Psychological History: Anxiety, Depression Smoking Status: Current some day smoker Past Alcohol Use History: Occasional - Past Family History Father Family Medical History: COPD Mother Family Medical History: COPD Sister(s) Family Medical History: COPD, Fibromyalgia, Myocardial Infarction ([place]), Osteoarthritis ([place]) Brother(s) Family Medical History: COPD Medications and Allergies Home Medications Medication Instructions Recorded Confirmed Type ALPRAZolam 1 mg PO DAILY PRN 10/20/16 10/26/19 History DULoxetine HCL [Cymbalta] 120 mg PO HS 10/20/16 10/26/19 History Pramipexole [Mirapex] 1 mg PO HS 10/20/16 10/26/19 History lamoTRIgine 150 mg PO HS 10/20/16 10/26/19 History Albuterol Sulfate [Ventolin HFA] 1 - 2 puff INHALATION RT-Q6H PRN 10/26/19 10/26/19 History Aspirin EC [Ecotrin Low Dose] 81 mg PO HS 10/26/19 10/26/19 History Biotin 5 mg PO DAILY 10/26/19 10/26/19 History Fluticasone/Vilanterol [Breo 1 puff INHALATION RT-DAILY 10/26/19 10/26/19 History Ellipta 100-25 Mcg Inhaler] INSULIN ASPART (NovoLOG) [NovoLOG 8 unit SQ TID BETWEEN MEALS 10/26/19 10/26/19 History (formulary)] INSULIN ASPART (NovoLOG) [NovoLOG 16 unit SQ AC-TID 10/26/19 10/26/19 History (formulary)] Insulin Glargine,Hum.rec.anlog 40 unit SQ HS 10/26/19 10/26/19 History [Lantus Solostar] Losartan Potassium [Cozaar] 25 mg PO HS 10/26/19 10/26/19 History Multivitamins, Thera [Multivitamin 1 tab PO DAILY 10/26/19 10/26/19 History (formulary)] Pramipexole [Mirapex] 1 mg PO HS 10/26/19 10/26/19 History hydrOXYzine HCL [Atarax] 20 mg PO HS 10/26/19 10/26/19 History Allergies Allergy/AdvReac Type Severity Reaction Status Date / Time metformin AdvReac Intermediate Diarrhea Verified 10/26/19 11:28 Physical Exam Vitals: Vital Signs Temp Pulse Resp BP Pulse Ox 10/26/19 20:06 100.1 F H 113 H 22 149/83 98 10/26/19 19:03 99.5 F 104 H 20 150/77 98 10/26/19 17:05 99 20 124/55 96 10/26/19 16:54 98.5 F 99 20 109/91 96 10/26/19 15:00 101 H 18 115/73 97 10/26/19 14:27 98 10/26/19 14:09 113 H 10/26/19 13:45 99.3 F 101 H 20 126/80 95 10/26/19 12:51 101 F H 103 H 20 138/116 93 L 10/26/19 12:21 111 H 10/26/19 12:12 106 H 10/26/19 12:07 102 H 20 98 10/26/19 11:03 102.7 F H 122 H 26 H 127/68 94 L Intake and Output 10/26/19 10/26/19 10/26/19 06:59 14:59 22:59 Other: Weight 136.078 kg GENERAL DESCRIPTION: Middle-aged female up in bed, no distress. No tachypnea or accessory muscle of respiration use. HEENT: Shows Pallor , no scleral icterus. Oral mucous membrane is dry. No pharyngeal erythema or thrush NECK: Trachea central, no thyromegaly. LUNGS: Unlabored breathing. Clear to auscultation anteriorly. No wheeze or crackle. HEART: S1, S2, regular rate and rhythm. No loud murmur ABDOMEN: Soft, no tenderness , guarding or rigidity, no organomegaly EXTREMITIES: No edema of feet. Right foot plantar wound 2 with no significant slough tissue or any foul-smelling drainage SKIN: No rash, no masses palpable. NEUROLOGICAL: The patient is awake, alert, oriented x3, mood and affect normal. Results CBC & Chem 7: 10/26/19 11:22 10/26/19 11:22 Labs: Abnormal Lab Results - Last 24 Hours (Table) 10/26/19 10/26/19 10/26/19 Range/Units 11:22 11:22 11:22 WBC 18.7 H (3.8-10.6) k/uL Neutrophils # 17.2 H (1.3-7.7) k/uL Lymphocytes # 0.5 L (1.0-4.8) k/uL D-Dimer 1.54 H (<0.60) mg/L FEU Sodium 130 L (137-145) mmol/L Chloride 97 L (98-107) mmol/L Carbon Dioxide 21 L (22-30) mmol/L BUN 21 H (7-17) mg/dL Creatinine 1.16 H (0.52-1.04) mg/dL Glucose 268 H (74-99) mg/dL POC Glucose (mg/dL) (75-99) mg/dL Plasma Lactic Acid Jan (0.7-2.0) mmol/L Magnesium 1.3 L (1.6-2.3) mg/dL Lactate Dehydrogenase 836 H (313-618) U/L C-Reactive Protein 192.3 H (<10.0) mg/L Ur Specific [place] (1.001-1.035) Urine Protein (Negative) Urine Ketones (Negative) Urine Blood (Negative) Hyaline Casts (0-2) /lpf Urine Mucus (None) /hpf 10/26/19 10/26/19 10/26/19 Range/Units 11:22 13:48 18:10 WBC (3.8-10.6) k/uL Neutrophils # (1.3-7.7) k/uL Lymphocytes # (1.0-4.8) k/uL D-Dimer (<0.60) mg/L FEU Sodium (137-145) mmol/L Chloride (98-107) mmol/L Carbon Dioxide (22-30) mmol/L BUN (7-17) mg/dL Creatinine (0.52-1.04) mg/dL Glucose (74-99) mg/dL POC Glucose (mg/dL) 183 H (75-99) mg/dL Plasma Lactic Acid Jan 2.1 H* (0.7-2.0) mmol/L Magnesium (1.6-2.3) mg/dL Lactate Dehydrogenase (313-618) U/L C-Reactive Protein (<10.0) mg/L Ur Specific [place] 1.049 H (1.001-1.035) Urine Protein Trace H (Negative) Urine Ketones Trace H (Negative) Urine Blood Moderate H (Negative) Hyaline Casts 10 H (0-2) /lpf Urine Mucus Rare H (None) /hpf Assessment and Plan Assessment: 1- patient presented to hospital with fall and upper back pain in this patient who did have a fever leukocytosis but no obvious focus of infection in this patient who did have extensive workup including SCDs rhythm that was negative CT of abdominal pelvis with features of colitis no patient didn't have any GI symptoms patient to have right foot plantar wounds but no significant limited changes has been noticing UA has been negative, clinically doubt covid 19 in this patient with no significant respiratory symptoms and CT of the chest did not show chronic loss opacities is very common with the Covid19 infection (1) Sepsis Current Visit: Yes Status: Acute Code(s): A41.9 - SEPSIS, UNSPECIFIED ORGANISM SNOMED Code(s): 05086563 (2) Diabetic ulcer of right foot associated with diabetes mellitus due to underlying condition, with necrosis of bone Current Visit: No Status: Acute Code(s): E08.621 - DIABETES MELLITUS DUE TO UNDERLYING CONDITION W FOOT ULCER; L97.514 - NON-PRS CHRONIC ULCER OTH PRT RIGHT FOOT W NECROSIS OF BONE SNOMED Code(s): 328823061 Plan: 1-Vancomycin pharmacy to dose target trough of 15 while watching his kidney function and Vanco trough closely and Unasyn 3 g every 6 hours to continue on the tip of the culture finalized 2-local wound care to the right foot plantar wound with Aquacel silver dressing to be changed daily 3-IV fluids We will follow on clinical condition and cultures to further adjust medication if needed Thank you for this consultation will follow this patient with you
[2019-10-27] MEDS: ALBUTEROL NEBULIZED 2.5 MG/3 ML INHALATION SCH ×6 (04:16→23:46)
[2019-10-27] MEDS: AMPICILLIN-SULBACTAM 3 GM in SODIUM CHLORIDE 0.9% 100 ML IVPB SCH ×4 (06:16→23:39)
[2019-10-27 07:39] LABS: Glucose,Whole Blood 232 mg/dL (75-99)
[2019-10-27 07:48] LABS: Basophils % (A) 0 %; Eosinophils % (A) 0 %; HCT 36.5 % (34.0-46.0); HGB 12.1 gm/dL (11.4-16.0); Lymphocytes # (A) 0.4 k/uL (1.0-4.8); Lymphocytes % (A) 3 %; MCH 29.3 pg (25.0-35.0); MCHC 33.1 g/dL (31.0-37.0); MCV 88.6 fL (80.0-100.0); Mean Platelet Volume 7.5; Monocytes # (A) 0.5 k/uL (0-1.0); Monocytes % (A) 5 %; Neutrophils # (A) 10.5 k/uL (1.3-7.7); Neutrophils % (A) 91 %; Platelet Count 173 k/uL (150-450); RBC 4.12 m/uL (3.80-5.40); RDW 13.9 % (11.5-15.5); WBC 11.6 k/uL (3.8-10.6)
[2019-10-27 07:54] LABS: Albumin 3.4 g/dL (3.5-5.0); Calcium 7.9 mg/dL (8.4-10.2); Magnesium 2.1 mg/dL (1.6-2.3); Potassium 4.6 mmol/L (3.5-5.1); Total Bilirubin 0.8 mg/dL (0.2-1.3); Total Protein 6.6 g/dL (6.3-8.2)
[2019-10-27] MEDS: LOSARTAN 25 MG TAB PO SCH ×2 (07:55→21:43)
[2019-10-27] MEDS: INSULIN ASPART (NovoLOG) 100 UNIT/ML VIAL SQ SCH ×7 (07:56→21:47)
[2019-10-27] MEDS: ACETAMINOPHEN TAB 325 MG TAB PO PRN (07:57)
[2019-10-27] MEDS: ENOXAPARIN 40 MG/0.4 ML SYRINGE SQ SCH (07:57)
[2019-10-27] MEDS: MAGNESIUM SULFATE-D5W PMX 1 GM in DEXTROSE/WATER 1 100ML.BAG IVPB SCH (08:11)
[2019-10-27] MEDS: SODIUM CHLORIDE 0.9% 1,000 ML IV SCH ×4 (08:11→21:56)
[2019-10-27] MEDS ORDERED: NON FORMULARY DRUG (Biotin [Biotin] 5 MG) PO SCH (09:00)
[2019-10-27 09:04] LABS: C Reactive Protein 432.1 mg/L (<10.0)
[2019-10-27 09:57] LABS: Ferritin 86.4 ng/mL (10.0-291.0)
[2019-10-27] MEDS: VANCOMYCIN 2,000 MG in SODIUM CHLORIDE 0.9% 500 ML 500 ML IVPB SCH (10:54)
[2019-10-27 11:12] LABS: Glucose,Whole Blood 178 mg/dL (75-99)
[2019-10-27] MEDS: HYDROcodone/APAP 5-325MG 1 EACH TAB PO PRN ×3 (12:04→21:52)
[2019-10-27] MEDS: SYMBICORT 80-4.5 MCG INHALER INHALATION SCH ×2 (12:29→20:17)
[2019-10-27 12:44] LABS: Hemoglobin A1C 8.7 % (4.0-6.0)
[2019-10-27 16:54] LABS: Glucose,Whole Blood 203 mg/dL (75-99)
[2019-10-27] MEDS ORDERED: DIAZEPAM 5 MG/ML 2 ML INJ IVP STA (17:25)
--- NOTE | 2019-10-27 17:32 | P.PN ---
Subjective Progress Note Date: 10/27/19 Principal diagnosis: Right-sided back pain Patient was seen and examined. No acute events overnight. Patient continues to report 10 out of 10 right-sided back pain associated with her fall. She complains of chronic wounds in her feet with no changes. She denies any chest pain, shortness of breath or palpitations. No cough. No diarrhea. No fever or chills. Objective - Vital Signs Vital signs: Vital Signs Temp 97.7 F 10/27/19 15:53 Pulse 112 H 10/27/19 16:34 Resp 22 10/27/19 15:53 BP 130/71 10/27/19 15:53 Pulse Ox 94 L 10/27/19 15:53 Intake & Output 10/26/19 10/27/19 10/27/19 18:59 06:59 18:59 Intake Total 580 Balance 580 Weight 136.078 kg 136.078 kg Intake: Intake, IV Titration 100 Amount Ampicillin-Sulbactam 3 gm 100 In Sodium Chloride 0.9% 100 ml @ 200 mls/hr IVPB Q6HR [facility] Rx#:[id number] Oral 480 Other: # Voids 3 3 - Exam General: [non toxic], [no distress], [appears at stated age] Derm: [warm], [dry], [right foot 2 lesions with serous drainage] Head: [atraumatic], [normocephalic], [symmetric] Eyes: [EOMI], [no lid lag], [anicteric sclera] Mouth: [no lip lesion], [mucus membranes moist] Cardiovascular: [S1S2 reg], [no murmur], [positive posterior tibial pulse bilateral], Lungs: [Decreased breath sounds bilateral], [no rhonchi, no rales] , [no accessory muscle use] Abdominal: [soft], [ nontender to palpation], [no guarding], [no appreciable organomegaly] Ext: [no gross muscle atrophy], [no edema], [no contractures], [right-sided paraspinal tenderness] Neuro: [no focal neuro deficits] Psych: [Alert], [oriented], [appropriate affect] - Labs CBC & Chem 7: 10/27/19 06:46 10/27/19 06:46 Labs: Abnormal Lab Results - Last 24 Hours (Table) 10/26/19 10/26/19 10/26/19 Range/Units 11:22 18:10 22:12 WBC (3.8-10.6) k/uL Neutrophils # (1.3-7.7) k/uL Lymphocytes # (1.0-4.8) k/uL D-Dimer (<0.60) mg/L FEU Sodium (137-145) mmol/L Glucose (74-99) mg/dL POC Glucose (mg/dL) 183 H 289 H (75-99) mg/dL Hemoglobin A1c (4.0-6.0) % Calcium (8.4-10.2) mg/dL AST (14-36) U/L Lactate Dehydrogenase (313-618) U/L C-Reactive Protein (<10.0) mg/L Albumin (3.5-5.0) g/dL Procalcitonin 1.54 H (0.02-0.09) ng/mL 10/27/19 10/27/19 10/27/19 Range/Units 06:46 06:46 06:46 WBC 11.6 H (3.8-10.6) k/uL Neutrophils # 10.5 H (1.3-7.7) k/uL Lymphocytes # 0.4 L (1.0-4.8) k/uL D-Dimer (<0.60) mg/L FEU Sodium 131 L (137-145) mmol/L Glucose 222 H (74-99) mg/dL POC Glucose (mg/dL) (75-99) mg/dL Hemoglobin A1c 8.7 H (4.0-6.0) % Calcium 7.9 L (8.4-10.2) mg/dL AST 59 H (14-36) U/L Lactate Dehydrogenase 923 H (313-618) U/L C-Reactive Protein 432.1 H (<10.0) mg/L Albumin 3.4 L (3.5-5.0) g/dL Procalcitonin (0.02-0.09) ng/mL 10/27/19 10/27/19 10/27/19 Range/Units 06:46 07:36 11:11 WBC (3.8-10.6) k/uL Neutrophils # (1.3-7.7) k/uL Lymphocytes # (1.0-4.8) k/uL D-Dimer 1.93 H (<0.60) mg/L FEU Sodium (137-145) mmol/L Glucose (74-99) mg/dL POC Glucose (mg/dL) 232 H 178 H (75-99) mg/dL Hemoglobin A1c (4.0-6.0) % Calcium (8.4-10.2) mg/dL AST (14-36) U/L Lactate Dehydrogenase (313-618) U/L C-Reactive Protein (<10.0) mg/L Albumin (3.5-5.0) g/dL Procalcitonin (0.02-0.09) ng/mL 10/27/19 Range/Units 16:53 WBC (3.8-10.6) k/uL Neutrophils # (1.3-7.7) k/uL Lymphocytes # (1.0-4.8) k/uL D-Dimer (<0.60) mg/L FEU Sodium (137-145) mmol/L Glucose (74-99) mg/dL POC Glucose (mg/dL) 203 H (75-99) mg/dL Hemoglobin A1c (4.0-6.0) % Calcium (8.4-10.2) mg/dL AST (14-36) U/L Lactate Dehydrogenase (313-618) U/L C-Reactive Protein (<10.0) mg/L Albumin (3.5-5.0) g/dL Procalcitonin (0.02-0.09) ng/mL Microbiology - Last 24 Hours (Table) 10/26/19 11:22 Blood Culture Gram Stain - Preliminary Blood 10/26/19 11:22 Blood Culture - Final Blood 10/26/19 14:13 Gram Stain - Preliminary Foot - Right Wound Culture - Preliminary Assessment and Plan Assessment: Intractable back pain due to musculoskeletal sprain -One-time dose of Valium -Follow PT recommendations - Morphine - [place] - Flexaril SIRS undetermined etiology - My concern is osteomyelitis VS COVID, less likely colitis - CTA without pneumonia or Pulmonary embolism -CT abdomen and pelvis does show possible colitis. 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 Continues to be SIRS positive. On IV antibiotics with ID on board. Cultures are pending. PNA vs ulcer as source of infection. Likely DC in 2-3 days.]
[2019-10-27 18:08] LABS: Ferritin 248.5 ng/mL (10.0-291.0)
--- NOTE | 2019-10-27 18:54 | PN ---
PROGRESS NOTE DATE OF SERVICE: 10/27/2019 REASON FOR FOLLOWUP: Sepsis and Gram-positive bacteremia. INTERVAL HISTORY: The patient's overall fever pattern has improved. The last temperature was 100.2 this morning. The patient is still complaining of pain, generalized body aches and pain. No chest pain. No cough. No abdominal pain or diarrhea. PHYSICAL EXAMINATION: Blood pressure 130/71 with a pulse of 108, temperature 97.7. She is 94% on 3 L nasal cannula. General description is a middle-aged female up in the bed in no distress. RESPIRATORY SYSTEM: Unlabored breathing. Clear to auscultation anteriorly. HEART: S1, S2. Regular rate and rhythm. ABDOMEN: Soft. No tenderness. EXTREMITIES: No edema of the feet. LABS: Hemoglobin is 12.1, white count 11.6, BUN of 16, creatinine 0.89. Blood culture with Gram-positive cocci in chains. Local wound culture is currently pending. DIAGNOSTIC IMPRESSION AND PLAN: Patient admitted to hospital with sepsis, now with evidence of Gram-positive bacteremia. Source could be possible right diabetic foot infection. Patient is covered with vancomycin; to continue while waiting for the culture to finalize. Repeat blood culture will be ordered to document clearance of bacteremia. Continue with supportive care. MMODL / IJN: [id number] /
[2019-10-27 20:49] LABS: Glucose,Whole Blood 137 mg/dL (75-99)
[2019-10-27] MEDS: PRAMIPEXOLE 1 MG TAB PO SCH (21:42)
[2019-10-27] MEDS: lamoTRIgine 100 MG TAB PO SCH (21:43)
[2019-10-27] MEDS: ASPIRIN 81 MG PO SCH (21:43)
[2019-10-27] MEDS: DULoxetine HCL 60 MG CAPSULE.DR PO SCH (21:43)
[2019-10-27] MEDS: INSULIN DETEMIR (LEVEMIR) 100 UNIT/ML SYR SQ SCH (21:47)
[2019-10-27] MEDS: MORPHINE SULFATE 4 MG/ML SYRINGE IV PRN (21:53)
[2019-10-27] MEDS: hydrOXYzine HCL 10 MG TAB PO SCH (23:38)
[2019-10-28] MEDS: VANCOMYCIN 2,000 MG in SODIUM CHLORIDE 0.9% 500 ML 500 ML IVPB SCH ×2 (03:40→03:43)
[2019-10-28] MEDS: ALBUTEROL NEBULIZED 2.5 MG/3 ML INHALATION SCH ×6 (03:43→23:13)
[2019-10-28] MEDS: AMPICILLIN-SULBACTAM 3 GM in SODIUM CHLORIDE 0.9% 100 ML IVPB SCH (06:24)
[2019-10-28 07:43] LABS: Glucose,Whole Blood 136 mg/dL (75-99)
[2019-10-28] MEDS: INSULIN ASPART (NovoLOG) 100 UNIT/ML VIAL SQ SCH ×7 (07:54→20:53)
[2019-10-28] MEDS: ENOXAPARIN 40 MG/0.4 ML SYRINGE SQ SCH (07:55)
[2019-10-28] MEDS: SODIUM CHLORIDE 0.9% 1,000 ML IV SCH ×2 (07:59→18:47)
[2019-10-28] MEDS: SYMBICORT 80-4.5 MCG INHALER INHALATION SCH ×2 (09:24→19:26)
[2019-10-28 11:53] LABS: Glucose,Whole Blood 164 mg/dL (75-99)
[2019-10-28] MEDS: CLINDAMYCIN 600 MG in DEXTROSE 5% IN WATER 50 ML IVPB SCH ×4 (12:16→18:59)
--- NOTE | 2019-10-28 14:52 | P.PN ---
Subjective Progress Note Date: 10/28/19 Principal diagnosis: Right-sided back pain Patient was seen and examined. No acute events overnight. Seen laying in bed, sleeping, appears lethargic. Easily arousable and answering questions. She has no complaints today. She reports significant improvement in her back pain since admission. She denies any chest pain, shortness of breath or palpitations. No nausea or vomiting. No fever or chills. Objective - Vital Signs Vital signs: Vital Signs Temp 98.3 F 10/28/19 07:00 Pulse 99 10/28/19 12:34 Resp 20 10/28/19 07:27 BP 132/84 10/28/19 07:00 Pulse Ox 96 10/28/19 07:00 Intake & Output 10/27/19 10/28/19 10/28/19 18:59 06:59 18:59 Intake Total 300 Balance 300 Weight 136.078 kg Intake: Oral 300 Other: Voiding Method Toilet Toilet Bedside Commode Bedside Commode Diaper Diaper # Voids 3 2 2 - Exam General: [Appears lethargic], [no distress], [appears at stated age] Derm: [warm], [dry], [right foot 2 lesions with serous drainage] Head: [atraumatic], [normocephalic], [symmetric] Eyes: [EOMI], [no lid lag], [anicteric sclera] Mouth: [no lip lesion], [mucus membranes moist] Cardiovascular: [S1S2 reg], [tachycardic], [positive posterior tibial pulse bilateral], Lungs: [Expiratory wheezing bilateral], [no rhonchi, no rales] , [no accessory muscle use] Abdominal: [soft], [ nontender to palpation], [no guarding], [no appreciable organomegaly] Ext: [no gross muscle atrophy], [no edema], [no contractures], [right-sided paraspinal tenderness, improved] Neuro: [no focal neuro deficits] Psych: [Alert], [oriented], [appropriate affect] - Labs CBC & Chem 7: 10/27/19 06:46 10/27/19 06:46 Labs: Abnormal Lab Results - Last 24 Hours (Table) 10/27/19 10/27/19 10/28/19 Range/Units 16:53 20:45 07:39 POC Glucose (mg/dL) 203 H 137 H 136 H (75-99) mg/dL 10/28/19 Range/Units 11:51 POC Glucose (mg/dL) 164 H (75-99) mg/dL Microbiology - Last 24 Hours (Table) 10/26/19 11:22 Blood Culture Gram Stain - Preliminary Blood Blood Culture - Preliminary Strep agalactiae - (group b) 10/26/19 14:13 Gram Stain - Preliminary Foot - Right Wound Culture - Preliminary Strep agalactiae - (group b) Assessment and Plan Assessment: Intractable back pain due to musculoskeletal sprain -One-time dose of Valium yesterday which improved her pain significantly -Follow PT recommendations - Morphine - [place] - Flexaril Hypoxia -Increasing oxygen requirements today -Possibly related to fluid overload from infused IVF -Chest x-ray ordered Sepsis with bacteremia - My concern is osteomyelitis VS COVID, less likely colitis - CTA without pneumonia or Pulmonary embolism -CT abdomen and pelvis does show possible colitis. 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 Continues to be septic with bacteremia. On IV antibiotics with ID on board. Repeat cultures ordered. Chest x-ray ordered for increased oxygen requirements.]
--- NOTE | 2019-10-28 14:53 | XR ---
EXAMINATION TYPE: XR chest 1V portable DATE OF EXAM: 10/28/2019 HISTORY: Shortness of breath. COMPARISON: 10/26/19 TECHNIQUE: Single view of the chest is submitted. FINDINGS: Demonstrated are scattered senescent parenchymal change. There is no evidence for focal infiltrate. The heart is stable. Hilar and mediastinal structures are within normal limits. Degenerative changes are seen of the dorsal spine. IMPRESSION: 1. Chronic changes without evidence for acute pulmonary disease.
[2019-10-28 15:39] LABS: Basophils % (A) 0 %; Eosinophils # (A) 0.1 k/uL (0-0.7); Eosinophils % (A) 1 %; HCT 35.7 % (34.0-46.0); HGB 11.2 gm/dL (11.4-16.0); Hypochromasia Slight; Lymphocytes # (A) 0.6 k/uL (1.0-4.8); Lymphocytes % (A) 7 %; MCH 28.2 pg (25.0-35.0); MCHC 31.3 g/dL (31.0-37.0); MCV 90.1 fL (80.0-100.0); Mean Platelet Volume 7.2; Monocytes # (A) 0.4 k/uL (0-1.0); Monocytes % (A) 4 %; Neutrophils # (A) 7.7 k/uL (1.3-7.7); Neutrophils % (A) 85 %; Platelet Count 156 k/uL (150-450); RBC 3.97 m/uL (3.80-5.40); RDW 14.2 % (11.5-15.5)
[2019-10-28 15:54] LABS: ALT 36 U/L (4-34); AST 53 U/L (14-36); African American GFR (CKD) >90 (>60 ml/min/1.73 sqM); Albumin 3.4 g/dL (3.5-5.0); Alkaline Phosphatase 130 U/L (38-126); Anion Gap 10 mmol/L; Blood Urea Nitrogen 16 mg/dL (7-17); Calcium 7.9 mg/dL (8.4-10.2); Carbon Dioxide 22 mmol/L (22-30); Chloride 101 mmol/L (98-107); Glucose 133 mg/dL (74-99); Non-African American GFR(CKD) 88 (>60 ml/min/1.73 sqM); Potassium 4.3 mmol/L (3.5-5.1); Sodium 133 mmol/L (137-145); Total Bilirubin 0.6 mg/dL (0.2-1.3); Total Protein 6.7 g/dL (6.3-8.2)
--- NOTE | 2019-10-28 15:55 | PN ---
PROGRESS NOTE DATE OF SERVICE: 10/28/2019 REASON FOR FOLLOWUP: Streptococcus group B bacteremia secondary to right diabetic foot wound. INTERVAL HISTORY: The patient is currently afebrile, has been breathing comfortably. Denies having any chest pain or cough. Still complains of pain to the right lower chest area pain posteriorly. No nausea, no vomiting. No abdominal pain or diarrhea. PHYSICAL EXAMINATION: Blood pressure 132/84 with a pulse of 84, temperature 98.3. She is 96% on 3 L nasal cannula. General description is a middle-aged female up in the chair in no distress. RESPIRATORY SYSTEM: Unlabored breathing. Clear to auscultation anteriorly. HEART: S1, S2. Regular rate and rhythm. ABDOMEN: Soft. No tenderness. Right foot plantar wound has no significant slough tissue or surrounding redness. DIAGNOSTIC IMPRESSION AND PLAN: Patient with sepsis, now with evidence of Streptococcus agalactiae bacteremia. She grew the same pathogen from her right foot, likely diabetic foot infection with secondary cellulitis. Antibiotic adjusted to cefazolin and clindamycin. Local care with dry Aquacel Silver dressing. In view of the positive blood culture and concern for possible deep infection, CT of the foot will be done to make sure there is no evidence of any abscess. Continue with supportive care. MMODL / IJN: [id number] /
[2019-10-28 15:56] VITALS: BMI 45.6
[2019-10-28 17:03] LABS: Glucose,Whole Blood 120 mg/dL (75-99)
[2019-10-28] MEDS: MORPHINE SULFATE 4 MG/ML SYRINGE IV PRN (18:59)
[2019-10-28 20:09] LABS: Glucose,Whole Blood 139 mg/dL (75-99)
[2019-10-28] MEDS: lamoTRIgine 100 MG TAB PO SCH (20:52)
[2019-10-28] MEDS: LOSARTAN 25 MG TAB PO SCH (20:52)
[2019-10-28] MEDS: hydrOXYzine HCL 10 MG TAB PO SCH (20:52)
[2019-10-28] MEDS: ASPIRIN 81 MG PO SCH (20:52)
[2019-10-28] MEDS: DULoxetine HCL 60 MG CAPSULE.DR PO SCH (20:52)
[2019-10-28] MEDS: INSULIN DETEMIR (LEVEMIR) 100 UNIT/ML SYR SQ SCH (20:53)
[2019-10-28] MEDS: PRAMIPEXOLE 1 MG TAB PO SCH (20:56)
[2019-10-29] MEDS: CLINDAMYCIN 600 MG in DEXTROSE 5% IN WATER 50 ML IVPB SCH ×10 (00:42→23:51)
[2019-10-29] MEDS: ALBUTEROL NEBULIZED 2.5 MG/3 ML INHALATION SCH ×7 (03:10→23:25)
[2019-10-29] MEDS: ALPRAZolam 1 MG TAB PO PRN (05:13)
[2019-10-29 06:53] LABS: Glucose,Whole Blood 159 mg/dL (75-99)
[2019-10-29] MEDS: SYMBICORT 80-4.5 MCG INHALER INHALATION SCH ×2 (07:33→19:05)
[2019-10-29] MEDS: INSULIN ASPART (NovoLOG) 100 UNIT/ML VIAL SQ SCH ×7 (08:50→21:54)
[2019-10-29] MEDS: ENOXAPARIN 40 MG/0.4 ML SYRINGE SQ SCH (08:50)
[2019-10-29 11:15] LABS: ABG Base Excess -0.9 mmol/L; ABG HCO3 25 mmol/L (21-25); ABG Oxygen Saturation 98.6 % (94-97); ABG PCO2 44 mmHg (35-45); ABG PH 7.36 (7.35-7.45); ABG PO2 106 mmHg (83-108); ABG TCO2 26 mmol/L (19-24); Allen Test Performed? Yes
[2019-10-29 11:37] LABS: Glucose,Whole Blood 171 mg/dL (75-99)
--- NOTE | 2019-10-29 12:12 | P.CNPUL ---
History of Present Illness Consult date: 10/29/19 Requesting physician: Sofia Lamb Reason for consult: dyspnea, obstructive sleep apnea Chief complaint: Back pain status post fall History of present illness: This is a very pleasant 64-year-old female patient who follows with Dr. Román Lou as her primary care provider. She has a history of anxiety, depression, diabetes mellitus, neuropathy, morbid obesity, obstructive sleep apnea, co ngestive heart failure. She had fallen one day last week under her back and right chest. She presented here to the emergency room on 10/26/2019 with complaints of ongoing back pain. She had been having some pain with movement and difficulty breathing as well. She was also found to be febrile with a temperature of 103. She had undergone hysterectomy in July of this year and developed pneumonia following that. She also has a right foot wound infection that has been somewhat chronic in nature. Chest x-ray showed no acute pulmonary process. CT angiogram was negative for pulmonary emboli. Some mild atelectatic changes in the lung bases. Earlier this morning she was having complaints of increasing shortness of breath and we are consulted for the same. She is seen on the regular medical floor. She is currently sitting up in a chair at the bedside. She is on 4 L nasal cannula with O2 saturation 97%. She is somewhat difficult to arouse but once awake is appropriate but drifts back off easily. She has been maintained on Mirapex, morphine, [place], Xanax, Atarax, Flexeril. She is maintained on Breo and albuterol in the outpatient setting. She did wear the BiPAP last night with settings of 18/8 and 35% FiO2. She states she is compliant with her home CPAP machine. She's been on it for approximate 8 years she states. She is a smoker as well. Blood cultures are positive for strep agalactiae group B as well as the right foot wound culture. White count 9.0. Hemoglobin 11.2. Sodium 133. Potassium 4.3. Creatinine 0.74. [place] virus not detected. ABGs were obtained and 32% FiO2 which revealed a pO2 of 106, pCO2 of 44 and a pH is 7.36. Review of Systems REVIEW OF SYSTEMS: CONSTITUTIONAL: Denies any recent significant weight loss or weight gain. EYES: Denies change in vision. EARS, NOSE, MOUTH, THROAT: Denies headaches, denies sore throat. CARDIOVASCULAR: Denies chest pain, palpitations or syncopal episodes. RESPIRATORY: Positive for shortness of breath, cough, congestion or hemoptysis. GASTROINTESTINAL: Denies change in appetite, denies abdominal pain GENITOURINARY: Denies hematuria, denies infections. MUSKULOSKELETAL: Positive for back pain, denies swelling. INTEGUMENTARY: Denies rash, denies eczema. NEUROLOGICAL: Denies recent memory loss, no recent seizure activity. PSYCHIATRIC: Denies anxiety, denies depression. HEMATOLOGIC/LYMPHATIC: Denies anemia, denies enlarged lymph nodes. Past Medical History Past Medical History: Asthma, Heart Failure, Diabetes Mellitus, GERD/Reflux, O steoarthritis (OA), Pneumonia, Sleep Apnea/CPAP/BIPAP Additional Past Medical History / Comment(s): IDDM type II, neuropathy bilateral feet, chronic wound R foot/walking boot, MOIZ with bipap, narcolepsy, recent pneumonia, CHF once post op pt states was from fluid overload, back pain, RLS, IBS, sinus problems. History of Any Multi-Drug Resistant Organisms: None Reported Past Surgical History: Cholecystectomy, Heart Catheterization, Hysterectomy, Joint Replacement, Orthopedic Surgery Additional Past Surgical History / Comment(s): L knee arthroscopy, bilateral total knee arthroplasties, reverse R total shoulder, L total shoulder,R foot hammer toe sx, R foot bunionectomy, repair of dislocated 2nd R toe Past Anesthesia/Blood Transfusion Reactions: No Reported Reaction Smoking Status: Former smoker - Past Family History Father Family Medical History: COPD Mother Family Medical History: COPD Sister(s) Family Medical History: COPD, Fibromyalgia, Myocardial Infarction (ME), Osteoarthritis (OA) Brother(s) Family Medical History: COPD Medications and Allergies Home Medications Medication Instructions Recorded Confirmed Type ALPRAZolam 1 mg PO DAILY PRN 10/20/16 10/26/19 History DULoxetine HCL [Cymbalta] 120 mg PO HS 10/20/16 10/26/19 History Pramipexole [Mirapex] 1 mg PO HS 10/20/16 10/26/19 History lamoTRIgine 150 mg PO HS 10/20/16 10/26/19 History Albuterol Sulfate [Ventolin HFA] 1 - 2 puff INHALATION RT-Q6H PRN 10/26/19 10/26/19 History Aspirin EC [Ecotrin Low Dose] 81 mg PO HS 10/26/19 10/26/19 History Biotin 5 mg PO DAILY 10/26/19 10/26/19 History Fluticasone/Vilanterol [Breo 1 puff INHALATION RT-DAILY 10/26/19 10/26/19 History Ellipta 100-25 Mcg Inhaler] INSULIN ASPART (NovoLOG) [NovoLOG 8 unit SQ TID BETWEEN MEALS 10/26/19 10/26/19 History (formulary)] INSULIN ASPART (NovoLOG) [NovoLOG 16 unit SQ AC-TID 10/26/19 10/26/19 History (formulary)] Insulin Glargine,Hum.rec.anlog 40 unit SQ HS 10/26/19 10/26/19 History [Lantus Solostar] Losartan Potassium [Cozaar] 25 mg PO HS 10/26/19 10/26/19 History Multivitamins, Thera [Multivitamin 1 tab PO DAILY 10/26/19 10/26/19 History (formulary)] Pramipexole [Mirapex] 1 mg PO HS 10/26/19 10/26/19 History hydrOXYzine HCL [Atarax] 20 mg PO HS 10/26/19 10/26/19 History Allergies Allergy/AdvReac Type Severity Reaction Status Date / Time metformin AdvReac Intermediate Diarrhea Verified 10/26/19 11:28 Physical Exam Vitals: Vital Signs Temp Pulse Pulse Resp BP Pulse Ox 10/29/19 11:24 100 10/29/19 11:11 100 10/29/19 07:46 112 H 10/29/19 07:33 108 H 10/29/19 07:30 95 18 10/29/19 07:00 99.2 F 94 19 132/83 97 10/29/19 03:19 100 10/29/19 03:07 99 10/29/19 01:35 98.0 F 95 18 117/62 91 L 10/28/19 23:26 99 10/28/19 23:16 97 10/28/19 19:38 100 10/28/19 19:27 98 10/28/19 18:40 98.0 F 97 18 101/59 97 10/28/19 16:43 99 18 10/28/19 16:32 95 18 10/28/19 16:00 95 18 10/28/19 15:00 97.8 F 95 22 149/80 97 10/28/19 12:34 99 10/28/19 12:21 97 Intake and Output 10/28/19 10/29/19 10/29/19 22:59 06:59 14:59 Other: Voiding Method Toilet Toilet Bedside Commode Bedside Commode Diaper Diaper # Voids 2 2 2 Weight 136.078 kg GENERAL EXAM: Arousable, drifts off easily, 64-year-old morbidly obese female patient, on 4 L nasal cannula, in no apparent distress. HEAD: Normocephalic. EYES: Normal reaction of pupils, equal size. NOSE: Clear with pink turbinates. THROAT: There is crowding the posterior pharynx. No erythema or exudates. NECK: Short. No masses, no JVD. CHEST: No chest wall deformity. LUNGS: Equal air entry with no crackles, wheeze, rhonchi or dullness. CVS: S1 and S2 normal with no audible murmur, regular rhythm. ABDOMEN: No hepatosplenomegaly, normal bowel sounds, no guarding or rigidity. SPINE: No scoliosis or deformity SKIN: No rashes CENTRAL NERVOUS SYSTEM: No focal deficits, tone is normal in all 4 extremities. EXTREMITIES: Dressing to the right foot There is 1+ peripheral edema. No clubbing, no cyanosis. Peripheral pulses are intact. Results - Laboratory Findings CBC and BMP: 10/28/19 15:13 10/28/19 15:18 ABG ABG pH 7.36 (7.35-7.45) 10/29/19 11:11 ABG pCO2 44 mmHg (35-45) 10/29/19 11:11 ABG pO2 106 mmHg (83-108) 10/29/19 11:11 ABG O2 Saturation 98.6 % (94-97) H 10/29/19 11:11 PT/INR, D-dimer PT 10.9 sec (9.0-12.0) 10/26/19 11:22 INR 1.1 (<1.2) 10/26/19 11:22 D-Dimer 1.93 mg/L FEU (<0.60) H 10/27/19 06:46 Abnormal lab findings: Abnormal Labs 10/26/19 10/26/19 10/26/19 11:22 11:22 11:22 WBC 18.7 H Hgb Neutrophils # 17.2 H Lymphocytes # 0.5 L D-Dimer 1.54 H ABG Total CO2 ABG O2 Saturation Sodium 130 L Chloride 97 L Carbon Dioxide 21 L BUN 21 H Creatinine 1.16 H Glucose 268 H POC Glucose (mg/dL) Hemoglobin A1c Plasma Lactic Acid Jan Calcium Magnesium 1.3 L AST ALT Alkaline Phosphatase Lactate Dehydrogenase 836 H C-Reactive Protein 192.3 H Albumin Procalcitonin Ur Specific [place] Urine Protein Urine Ketones Urine Blood Hyaline Casts Urine Mucus 10/26/19 10/26/19 10/26/19 11:22 11:22 13:48 WBC Hgb Neutrophils # Lymphocytes # D-Dimer ABG Total CO2 ABG O2 Saturation Sodium Chloride Carbon Dioxide BUN Creatinine Glucose POC Glucose (mg/dL) Hemoglobin A1c Plasma Lactic Acid Jan 2.1 H* Calcium Magnesium AST ALT Alkaline Phosphatase Lactate Dehydrogenase C-Reactive Protein Albumin Procalcitonin 1.54 H Ur Specific [place] 1.049 H Urine Protein Trace H Urine Ketones Trace H Urine Blood Moderate H Hyaline Casts 10 H Urine Mucus Rare H 10/26/19 10/26/19 10/27/19 18:10 22:12 06:46 WBC Hgb Neutrophils # Lymphocytes # D-Dimer ABG Total CO2 ABG O2 Saturation Sodium Chloride Carbon Dioxide BUN Creatinine Glucose POC Glucose (mg/dL) 183 H 289 H Hemoglobin A1c 8.7 H Plasma Lactic Acid Jan Calcium Magnesium AST ALT Alkaline Phosphatase Lactate Dehydrogenase C-Reactive Protein Albumin Procalcitonin Ur Specific [place] Urine Protein Urine Ketones Urine Blood Hyaline Casts Urine Mucus 10/27/19 10/27/19 10/27/19 06:46 06:46 06:46 WBC 11.6 H Hgb Neutrophils # 10.5 H Lymphocytes # 0.4 L D-Dimer 1.93 H ABG Total CO2 ABG O2 Saturation Sodium 131 L Chloride Carbon Dioxide BUN Creatinine Glucose 222 H POC Glucose (mg/dL) Hemoglobin A1c Plasma Lactic Acid Jan Calcium 7.9 L Magnesium AST 59 H ALT Alkaline Phosphatase Lactate Dehydrogenase 923 H C-Reactive Protein 432.1 H Albumin 3.4 L Procalcitonin Ur Specific [place] Urine Protein Urine Ketones Urine Blood Hyaline Casts Urine Mucus 10/27/19 10/27/19 10/27/19 07:36 11:11 16:53 WBC Hgb Neutrophils # Lymphocytes # D-Dimer ABG Total CO2 ABG O2 Saturation Sodium Chloride Carbon Dioxide BUN Creatinine Glucose POC Glucose (mg/dL) 232 H 178 H 203 H Hemoglobin A1c Plasma Lactic Acid Jan Calcium Magnesium AST ALT Alkaline Phosphatase Lactate Dehydrogenase C-Reactive Protein Albumin Procalcitonin Ur Specific [place] Urine Protein Urine Ketones Urine Blood Hyaline Casts Urine Mucus 10/27/19 10/28/19 10/28/19 20:45 07:39 11:51 WBC Hgb Neutrophils # Lymphocytes # D-Dimer ABG Total CO2 ABG O2 Saturation Sodium Chloride Carbon Dioxide BUN Creatinine Glucose POC Glucose (mg/dL) 137 H 136 H 164 H Hemoglobin A1c Plasma Lactic Acid Jan Calcium Magnesium AST ALT Alkaline Phosphatase Lactate Dehydrogenase C-Reactive Protein Albumin Procalcitonin Ur Specific [place] Urine Protein Urine Ketones Urine Blood Hyaline Casts Urine Mucus 10/28/19 10/28/19 10/28/19 15:13 15:18 17:02 WBC Hgb 11.2 L Neutrophils # Lymphocytes # 0.6 L D-Dimer ABG Total CO2 ABG O2 Saturation Sodium 133 L Chloride Carbon Dioxide BUN Creatinine Glucose 133 H POC Glucose (mg/dL) 120 H Hemoglobin A1c Plasma Lactic Acid Jan Calcium 7.9 L Magnesium AST 53 H ALT 36 H Alkaline Phosphatase 130 H Lactate Dehydrogenase C-Reactive Protein Albumin 3.4 L Procalcitonin Ur Specific [place] Urine Protein Urine Ketones Urine Blood Hyaline Casts Urine Mucus 10/28/19 10/29/19 10/29/19 20:08 06:52 11:11 WBC Hgb Neutrophils # Lymphocytes # D-Dimer ABG Total CO2 26 H ABG O2 Saturation 98.6 H Sodium Chloride Carbon Dioxide BUN Creatinine Glucose POC Glucose (mg/dL) 139 H 159 H Hemoglobin A1c Plasma Lactic Acid Jan Calcium Magnesium AST ALT Alkaline Phosphatase Lactate Dehydrogenase C-Reactive Protein Albumin Procalcitonin Ur Specific [place] Urine Protein Urine Ketones Urine Blood Hyaline Casts Urine Mucus 10/29/19 11:35 WBC Hgb Neutrophils # Lymphocytes # D-Dimer ABG Total CO2 ABG O2 Saturation Sodium Chloride Carbon Dioxide BUN Creatinine Glucose POC Glucose (mg/dL) 171 H Hemoglobin A1c Plasma Lactic Acid Jan Calcium Magnesium AST ALT Alkaline Phosphatase Lactate Dehydrogenase C-Reactive Protein Albumin Procalcitonin Ur Specific [place] Urine Protein Urine Ketones Urine Blood Hyaline Casts Urine Mucus - Diagnostic Findings Chest x-ray: image reviewed CT scan - chest: image reviewed Assessment and Plan Assessment: 1 Acute on chronic back pain requiring multiple narcotics, muscle relaxants 2 Obstructive sleep apnea, maintained on CPAP in the outpatient setting 3 Morbid obesity with suspected obesity/hypoventilation syndrome 4 Acute hypoxemic/hypercapnic respiratory failure secondary to above 5 Chronic and ongoing tobacco dependence 6 Acute exacerbation of chronic obstructive pulmonary disease 7 Anxiety/depression 8 Diabetes mellitus with diabetic neuropathy 9 Chronic wound of the right foot, cultures positive for strep agalactiae group B, currently on cefazolin and clindamycin 10 Bacteremia with strep agalactiae group B secondary to above Plan: The patient was seen and evaluated by Dr. Huerta Discontinue morphine, Atarax, Flexeril Decrease Mirapex to 0.5 milligram at bedtime Utilize the BiPAP throughout the night and during the day while napping Continue bronchodilators Continue antibiotics Educated regarding the importance of complete smoking cessation We'll continue to follow make further recommendations based on her clinical status I, the cosigning physician, performed a history & physical examination of the patient. Lungs sounds with bilateral end expiratory wheeze. Maintaining good O2 saturations in the 90s on 4 L/m per nasal cannula. I discussed the assessment and plan of care with my nurse practitioner, Natasha Crabtree. I attest to the above consultation as dictated by her. Time with Patient: Greater than 30
[2019-10-29] MEDS: methylPREDNISolone 4 MG TAB TAPER PO SCH (12:17)
--- NOTE | 2019-10-29 13:30 | CT ---
CT right foot without contrast HISTORY: Abscess Patient received 100 cc Isovue-300 and axial images obtained through the right foot. Automated exposu re control for dose reduction. DLP 135.1 mGycm. Correlation to plain film 10/26/2019 Soft tissue swelling is present, correlate for edema or cellulitis. There is no abnormal fluid collec tion present. Postop changes are noted to the second digit, arthropathy noted at the metatarsal phala ngeal joint. Irregular appearance of the distal first metatarsal, arthropathy change with erosion sub chondral geode formation is present, postop change also present to the first digit proximally. Small ossific densities are present at the level of the distal first metatarsal, metatarsophalangeal joint Osteoarthritic changes are also present at the tarsometatarsal joints with subchondral geode formatio n, marginal spurring. No periostitis to suggest osteomyelitis. There is a plantar calcaneus spur. IMPRESSION: Soft tissue edema, correlate for cellulitis. Osteoarthritic changes, postop changes.
--- NOTE | 2019-10-29 16:35 | P.PN ---
Subjective Progress Note Date: 10/29/19 Principal diagnosis: Right-sided back pain Patient was seen and examined. No acute events overnight. Seen laying in bed, sleeping, appears comfortable, less lethargic than yesterday. Easily arousable and answering questions. She has no complaints today. She reports slight i mprovement in her breathing since yesterday. She denies any chest pain, or palpitations. No nausea or vomiting. No fever or chills. Objective - Vital Signs Vital signs: Vital Signs Temp 98.3 F 10/29/19 13:37 Pulse 63 10/29/19 16:00 Resp 16 10/29/19 16:00 BP 154/89 10/29/19 13:37 Pulse Ox 94 L 10/29/19 13:37 Intake & Output 10/28/19 10/29/19 10/29/19 18:59 06:59 18:59 Intake Total 1130 400 Balance 1130 400 Weight 136.078 kg Intake: Intake, IV Titration 880 100 Amount Clindamycin 600 mg In 50 50 Dextrose 5% in Water 50 ml @ 50 mls/hr IVPB Q6HR [facility] Rx#:[id number] Sodium Chloride 0.9% 1, 780 000 ml @ 130 mls/hr IV . [id number] [facility] Rx#:[id number] ceFAZolin 2 gm In Sodium 50 50 Chloride 0.9% 50 ml @ 100 mls/hr IVPB Q8HR [facility] Rx# :[id number] Oral 250 300 Other: Voiding Method Toilet Toilet Toilet Bedside Commode Bedside Commode Bedside Commode Diaper Diaper Diaper # Voids 2 2 3 - Exam General: [Appears lethargic though improved from yesterday], [no distress], [appears at stated age] Derm: [warm], [dry], [right foot 2 lesions with serous drainage] Head: [atraumatic], [normocephalic], [symmetric] Eyes: [EOMI], [no lid lag], [anicteric sclera] Mouth: [no lip lesion], [mucus membranes moist] Cardiovascular: [S1S2 reg], [tachycardic], [positive posterior tibial pulse bilateral], Lungs: [Decreased breath sounds bilateral], [no rhonchi, no rales] , [no accessory muscle use] Abdominal: [soft], [ nontender to palpation], [no guarding], [no appreciable organomegaly] Ext: [no gross muscle atrophy], [no edema], [no contractures] Neuro: [no focal neuro deficits] Psych: [Alert], [oriented], [appropriate affect] - Labs CBC & Chem 7: 10/28/19 15:13 10/28/19 15:18 Labs: Abnormal Lab Results - Last 24 Hours (Table) 10/28/19 10/28/19 10/29/19 Range/Units 17:02 20:08 06:52 ABG Total CO2 (19-24) mmol/L ABG O2 Saturation (94-97) % POC Glucose (mg/dL) 120 H 139 H 159 H (75-99) mg/dL 10/29/19 10/29/19 Range/Units 11:11 11:35 ABG Total CO2 26 H (19-24) mmol/L ABG O2 Saturation 98.6 H (94-97) % POC Glucose (mg/dL) 171 H (75-99) mg/dL Microbiology - Last 24 Hours (Table) 10/28/19 09:47 Blood Culture - Preliminary Blood No Growth after 24 hours 10/26/19 11:22 Blood Culture Gram Stain - Final Blood Blood Culture - Final Strep agalactiae - (group b) 10/26/19 14:13 Gram Stain - Final Foot - Right Wound Culture - Final Strep agalactiae - (group b) Assessment and Plan Assessment: Intractable back pain due to musculoskeletal sprain -Follow PT recommendations, recommends subacute rehab versus home with home care - Morphine - [place] - Flexaril Acute hypoxic respiratory failure likely related to obstructive sleep apnea, obesity hypoventilation syndrome -Increasing oxygen requirements today -Pulmonology recommendations appreciated, discontinue narcotic pain medication, utilized BiPAP -Chest x-ray within normal limits Sepsis likely related to cellulitis with bacteremia - My concern is cellulitis VS COVID, less likely colitis - CTA without pneumonia or Pulmonary embolism -CT abdomen and pelvis does show possible colitis. 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 Continues to be septic with bacteremia. On IV antibiotics with ID on board. Repeat blood cultures ordered, so far negative. Pulmonology on board for increased oxygen requirements. Plans to repeat coronavirus labs tomorrow. Anticipate DC in 1-2 days if patient continues to show improvement.]
[2019-10-29 16:54] LABS: Glucose,Whole Blood 116 mg/dL (75-99)
[2019-10-29 21:30] LABS: Glucose,Whole Blood 205 mg/dL (75-99)
[2019-10-29] MEDS: DULoxetine HCL 60 MG CAPSULE.DR PO SCH (21:54)
[2019-10-29] MEDS: ASPIRIN 81 MG PO SCH (21:54)
[2019-10-29] MEDS: lamoTRIgine 100 MG TAB PO SCH (21:55)
[2019-10-29] MEDS: LOSARTAN 25 MG TAB PO SCH (21:55)
[2019-10-29] MEDS: INSULIN DETEMIR (LEVEMIR) 100 UNIT/ML SYR SQ SCH (21:55)
[2019-10-29] MEDS: PRAMIPEXOLE 0.5 MG TAB PO SCH (21:56)
--- NOTE | 2019-10-29 23:09 | PN ---
PROGRESS NOTE DATE OF SERVICE: 10/29/2019 REASON FOR FOLLOWUP: Streptococcus agalactiae bacteremia source is right diabetic foot infection. INTERVAL HISTORY: Patient is currently afebrile. Patient is breathing comfortably. Denies having any chest pain or cough. No abdominal pain. No pain to the right foot wound area. PHYSICAL EXAMINATION: Blood pressure 154/89 with a pulse of 63, temperature 98.3. She is 94% on 4 L nasal cannula. General description is a middle-aged female up in the chair in no distress. RESPIRATORY SYSTEM: Unlabored breathing, clear to auscultation anteriorly. HEART: S1, S2. Regular rate and rhythm. ABDOMEN: Soft, no tenderness. Right foot is currently dressed up. No obvious drainage on the dressing. LABS: BUN of 16, creatinine 0.74. Blood culture repeat has been negative. CT of the foot did not show any abscess. DIAGNOSTIC IMPRESSION AND PLAN: Patient with Streptococcus agalactiae bacteremia source is right diabetic foot wound infection. Currently on cefazolin and clindamycin. We will try to arrange for a short course of IV antibiotic on discharge. This has been discussed with the case sealer. Once arranged, he will be able to go home from ID standpoint. Continue supportive care. MMODL / IJN: [id number] /
[2019-10-30] MEDS: ALBUTEROL NEBULIZED 2.5 MG/3 ML INHALATION SCH ×5 (03:44→21:28)
[2019-10-30] MEDS: CLINDAMYCIN 600 MG in DEXTROSE 5% IN WATER 50 ML IVPB SCH ×6 (05:49→17:51)
[2019-10-30 06:43] LABS: Glucose,Whole Blood 179 mg/dL (75-99)
[2019-10-30] MEDS: INSULIN ASPART (NovoLOG) 100 UNIT/ML VIAL SQ SCH ×7 (07:41→20:14)
[2019-10-30] MEDS: ENOXAPARIN 40 MG/0.4 ML SYRINGE SQ SCH (07:41)
[2019-10-30] MEDS: methylPREDNISolone 4 MG TAB TAPER PO SCH (07:41)
[2019-10-30] MEDS: SYMBICORT 80-4.5 MCG INHALER INHALATION SCH ×2 (08:11→21:28)
[2019-10-30 08:56] LABS: Basophils % (A) 0 %; Eosinophils % (A) 0 %; HCT 33.3 % (34.0-46.0); HGB 10.4 gm/dL (11.4-16.0); Hypochromasia Slight; Lymphocytes # (A) 0.9 k/uL (1.0-4.8); Lymphocytes % (A) 10 %; MCH 28.2 pg (25.0-35.0); MCHC 31.3 g/dL (31.0-37.0); Mean Platelet Volume 7.8; Monocytes # (A) 0.5 k/uL (0-1.0); Monocytes % (A) 5 %; Neutrophils # (A) 7.2 k/uL (1.3-7.7); Neutrophils % (A) 82 %; Platelet Count 208 k/uL (150-450); RDW 14.3 % (11.5-15.5); WBC 8.8 k/uL (3.8-10.6)
[2019-10-30 09:07] LABS: ALT 34 U/L (4-34); AST 33 U/L (14-36); African American GFR (CKD) >90 (>60 ml/min/1.73 sqM); Albumin 3.3 g/dL (3.5-5.0); Alkaline Phosphatase 175 U/L (38-126); Anion Gap 7 mmol/L; Blood Urea Nitrogen 15 mg/dL (7-17); Calcium 8.8 mg/dL (8.4-10.2); Carbon Dioxide 26 mmol/L (22-30); Chloride 101 mmol/L (98-107); Glucose 174 mg/dL (74-99); LDH 644 U/L (313-618); Non-African American GFR(CKD) >90 (>60 ml/min/1.73 sqM); Potassium 4.5 mmol/L (3.5-5.1); Sodium 134 mmol/L (137-145); Total Bilirubin 0.6 mg/dL (0.2-1.3); Total Protein 6.7 g/dL (6.3-8.2)
[2019-10-30 09:26] LABS: C Reactive Protein 253.3 mg/L (<10.0)
[2019-10-30 11:26] LABS: Glucose,Whole Blood 158 mg/dL (75-99)
--- NOTE | 2019-10-30 12:26 | XR ---
EXAMINATION TYPE: XR chest 1V portable DATE OF EXAM: 10/30/2019 Comparison: 10/28/2019 Clinical History: 64-year-old female hypoxia Findings: Heart mildly enlarged. Diffuse interstitial opacity. Hazy lower lung densities likely relating to ove rlying soft tissue. Partially visualized shoulder arthroplasties. Impression: Cardiomegaly and interstitial change, possible mild pulmonary vascular congestion. Bronchitis or atyp ical pneumonias are also in the differential.
--- NOTE | 2019-10-30 12:46 | P.PN ---
Subjective Progress Note Date: 10/30/19 Principal diagnosis: Right-sided back pain Patient was seen and examined. No acute events overnight. He appears much more comfortable and less lethargic today. Patient reports improvement in her breathing but not quite back to baseline. She denies any chest pain or palpitations. No nausea or vomiting. No fever or chills. Objective - Vital Signs Vital signs: Vital Signs Temp 98.4 F 10/30/19 07:00 Pulse 88 10/30/19 11:51 Resp 17 10/30/19 07:00 BP 130/82 10/30/19 07:00 Pulse Ox 97 10/30/19 07:00 Intake & Output 10/29/19 10/30/19 10/30/19 18:59 06:59 18:59 Intake Total 400 200 Balance 400 200 Intake: Intake, IV Titration 100 200 Amount Clindamycin 600 mg In 50 100 Dextrose 5% in Water 50 ml @ 50 mls/hr IVPB Q6HR [facility] Rx#:[id number] ceFAZolin 2 gm In Sodium 50 100 Chloride 0.9% 50 ml @ 100 mls/hr IVPB Q8HR [facility] Rx# :[id number] Oral 300 Other: Voiding Method Toilet Toilet Toilet Bedside Commode Bedside Commode Bedside Commode Diaper Diaper Diaper # Voids 3 2 - Exam General: [no distress], [appears at stated age] Derm: [warm], [dry], [right foot 2 lesions with serous drainage] Head: [atraumatic], [normocephalic], [symmetric] Eyes: [EOMI], [no lid lag], [anicteric sclera] Mouth: [no lip lesion], [mucus membranes moist] Cardiovascular: [S1S2 reg], [no murmur], [positive posterior tibial pulse bilateral], Lungs: [Decreased breath sounds bilateral with scattered wheezing], [no rhonchi, no rales] , [no accessory muscle use] Abdominal: [soft], [ nontender to palpation], [no guarding], [no appreciable o rganomegaly] Ext: [no gross muscle atrophy], [no edema], [no contractures] Neuro: [no focal neuro deficits] Psych: [Alert], [oriented], [appropriate affect] - Labs CBC & Chem 7: 10/30/19 07:54 10/30/19 07:54 Labs: Abnormal Lab Results - Last 24 Hours (Table) 10/29/19 10/29/19 10/30/19 Range/Units 16:51 21:28 06:42 RBC (3.80-5.40) m/uL Hgb (11.4-16.0) gm/dL Hct (34.0-46.0) % Lymphocytes # (1.0-4.8) k/uL D-Dimer (<0.60) mg/L FEU Sodium (137-145) mmol/L Glucose (74-99) mg/dL POC Glucose (mg/dL) 116 H 205 H 179 H (75-99) mg/dL Alkaline Phosphatase (38-126) U/L Lactate Dehydrogenase (313-618) U/L C-Reactive Protein (<10.0) mg/L Albumin (3.5-5.0) g/dL 10/30/19 10/30/19 10/30/19 Range/Units 07:54 07:54 07:54 RBC 3.70 L (3.80-5.40) m/uL Hgb 10.4 L (11.4-16.0) gm/dL Hct 33.3 L (34.0-46.0) % Lymphocytes # 0.9 L (1.0-4.8) k/uL D-Dimer 1.19 H (<0.60) mg/L FEU Sodium 134 L (137-145) mmol/L Glucose 174 H (74-99) mg/dL POC Glucose (mg/dL) (75-99) mg/dL Alkaline Phosphatase 175 H (38-126) U/L Lactate Dehydrogenase 644 H (313-618) U/L C-Reactive Protein 253.3 H (<10.0) mg/L Albumin 3.3 L (3.5-5.0) g/dL 10/30/19 Range/Units 11:25 RBC (3.80-5.40) m/uL Hgb (11.4-16.0) gm/dL Hct (34.0-46.0) % Lymphocytes # (1.0-4.8) k/uL D-Dimer (<0.60) mg/L FEU Sodium (137-145) mmol/L Glucose (74-99) mg/dL POC Glucose (mg/dL) 158 H (75-99) mg/dL Alkaline Phosphatase (38-126) U/L Lactate Dehydrogenase (313-618) U/L C-Reactive Protein (<10.0) mg/L Albumin (3.5-5.0) g/dL Microbiology - Last 24 Hours (Table) 10/26/19 11:22 Blood Culture Gram Stain - Final Blood Blood Culture - Final Strep agalactiae - (group b) 10/28/19 09:47 Blood Culture - Preliminary Blood No Growth after 24 hours Assessment and Plan Assessment: Intractable back pain due to musculoskeletal sprain -Follow PT recommendations, recommends subacute rehab versus home with home care, patient prefers to go home - Morphine - [place] - Flexaril Acute hypoxic respiratory failure likely related to obstructive sleep apnea, obesity hypoventilation syndrome -Decreasing oxygen requirements today -Pulmonology recommendations appreciated, discontinue narcotic pain medication, utilized BiPAP -Repeat chest x-ray shows interstitial change -6 minute walk test Sepsis likely related to cellulitis with bacteremia versus COVID 19 - My concern is cellulitis VS COVID, less likely colitis - CTA without pneumonia or Pulmonary embolism -CT abdomen and pelvis does show possible colitis. 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 On IV antibiotics with ID on board. Repeat blood cultures ordered, so far negative. Pulmonology on board for increased oxygen requirements, improved today. Anticipate DC in 1-2 days if patient continues to show improvement.]
--- NOTE | 2019-10-30 12:49 | P.PN ---
Subjective Progress Note Date: 10/30/19 Principal diagnosis: Back pain status post fall, MOIZ This is a very pleasant 64-year-old female patient who follows with Dr. Román Lou as her primary care provider. She has a history of anxiety, depression, diabetes mellitus, neuropathy, morbid obesity, obstructive sleep apnea, congestive heart failure. She had fallen one day last week under her back and right chest. She presented here to the emergency room on 10/26/2019 with complaints of ongoing back pain. She had been having some pain with movement and difficulty breathing as well. She was also found to be febrile with a temperature of 103. She had undergone hysterectomy in July of this year and developed pneumonia following that. She also has a right foot wound infection that has been somewhat chronic in nature. Chest x-ray showed no acute pulmonary process. CT angiogram was negative for pulmonary emboli. Some mild atelectatic changes in the lung bases. Earlier this morning she was having complaints of increasing shortness of breath and we are consulted for the same. She is seen on the regular medical floor. She is currently sitting up in a chair at the bedside. She is on 4 L nasal cannula with O2 saturation 97%. She is somewhat difficult to arouse but once awake is appropriate but drifts back off easily. She has been maintained on Mirapex, morphine, [place], Xanax, Atarax, Flexeril. S he is maintained on Breo and albuterol in the outpatient setting. She did wear the BiPAP last night with settings of 18/8 and 35% FiO2. She states she is compliant with her home CPAP machine. She's been on it for approximate 8 years she states. She is a smoker as well. Blood cultures are positive for strep agalactiae group B as well as the right foot wound culture. White count 9.0. Hemoglobin 11.2. Sodium 133. Potassium 4.3. Creatinine 0.74. [place] virus not detected. ABGs were obtained and 32% FiO2 which revealed a pO2 of 106, pCO2 of 44 and a pH is 7.36. The patient is seen today 10/30/2019 in follow-up on the regular medical floor. She is awake and alert in no acute distress. She did utilize the BiPAP throughout the evening. She denies any worsening shortness of breath, cough or congestion. Currently maintaining O2 saturations in the 90s on 3 L/m per nasal cannula. Chest x-ray reveals cardiomegaly with interstitial changes and mild pulmonary vascular congestion. Continue on Symbicort and albuterol. Wound culture from the right foot is positive for strep agalactiae. CAT scan of the foot revealed soft tissue edema, currently for cellulitis. Osteoarthritic c hanges. Postop changes. No signs of osteomyelitis. White count 8.8. Hemoglobin 10.4. Sodium 134. Potassium 4.5. Creatinine 0.60. She remains on clindamycin and cefazolin. Objective - Vital Signs Vital signs: Vital Signs Temp 98.4 F 10/30/19 07:00 Pulse 92 10/30/19 12:04 Resp 17 10/30/19 07:00 BP 130/82 10/30/19 07:00 Pulse Ox 97 10/30/19 07:00 Intake & Output 10/29/19 10/30/19 10/30/19 18:59 06:59 18:59 Intake Total 400 200 Balance 400 200 Intake: Intake, IV Titration 100 200 Amount Clindamycin 600 mg In 50 100 Dextrose 5% in Water 50 ml @ 50 mls/hr IVPB Q6HR [facility] Rx#:[id number] ceFAZolin 2 gm In Sodium 50 100 Chloride 0.9% 50 ml @ 100 mls/hr IVPB Q8HR [facility] Rx# :[id number] Oral 300 Other: Voiding Method Toilet Toilet Toilet Bedside Commode Bedside Commode Bedside Commode Diaper Diaper Diaper # Voids 3 2 - Exam GENERAL EXAM: Awake and alert today. Pleasant 64-year-old morbidly obese female patient, on 3 L nasal cannula, in no apparent distress. HEAD: Normocephalic. EYES: Normal reaction of pupils, equal size. NOSE: Clear with pink turbinates. THROAT: There is crowding the posterior pharynx. No erythema or exudates. NECK: Short. No masses, no JVD. CHEST: No chest wall deformity. LUNGS: Equal air entry with faint crackles in the posterior bases. CVS: S1 and S2 normal with no audible murmur, regular rhythm. ABDOMEN: No hepatosplenomegaly, normal bowel sounds, no guarding or rigidity. SPINE: No scoliosis or deformity SKIN: No rashes CENTRAL NERVOUS SYSTEM: No focal deficits, tone is normal in all 4 extremities. EXTREMITIES: Dressing to the right foot There is 1+ peripheral edema. No clubbing, no cyanosis. Peripheral pulses are intact. - Labs CBC & Chem 7: 10/30/19 07:54 10/30/19 07:54 Labs: Abnormal Lab Results - Last 24 Hours (Table) 10/29/19 10/29/19 10/30/19 Range/Units 16:51 21:28 06:42 RBC (3.80-5.40) m/uL Hgb (11.4-16.0) gm/dL Hct (34.0-46.0) % Lymphocytes # (1.0-4.8) k/uL D-Dimer (<0.60) mg/L FEU Sodium (137-145) mmol/L Glucose (74-99) mg/dL POC Glucose (mg/dL) 116 H 205 H 179 H (75-99) mg/dL Alkaline Phosphatase (38-126) U/L Lactate Dehydrogenase (313-618) U/L C-Reactive Protein (<10.0) mg/L Albumin (3.5-5.0) g/dL 10/30/19 10/30/19 10/30/19 Range/Units 07:54 07:54 07:54 RBC 3.70 L (3.80-5.40) m/uL Hgb 10.4 L (11.4-16.0) gm/dL Hct 33.3 L (34.0-46.0) % Lymphocytes # 0.9 L (1.0-4.8) k/uL D-Dimer 1.19 H (<0.60) mg/L FEU Sodium 134 L (137-145) mmol/L Glucose 174 H (74-99) mg/dL POC Glucose (mg/dL) (75-99) mg/dL Alkaline Phosphatase 175 H (38-126) U/L Lactate Dehydrogenase 644 H (313-618) U/L C-Reactive Protein 253.3 H (<10.0) mg/L Albumin 3.3 L (3.5-5.0) g/dL 10/30/19 Range/Units 11:25 RBC (3.80-5.40) m/uL Hgb (11.4-16.0) gm/dL Hct (34.0-46.0) % Lymphocytes # (1.0-4.8) k/uL D-Dimer (<0.60) mg/L FEU Sodium (137-145) mmol/L Glucose (74-99) mg/dL POC Glucose (mg/dL) 158 H (75-99) mg/dL Alkaline Phosphatase (38-126) U/L Lactate Dehydrogenase (313-618) U/L C-Reactive Protein (<10.0) mg/L Albumin (3.5-5.0) g/dL Microbiology - Last 24 Hours (Table) 10/28/19 09:47 Blood Culture - Preliminary Blood No Growth after 48 hours 10/26/19 11:22 Blood Culture Gram Stain - Final Blood Blood Culture - Final Strep agalactiae - (group b) Assessment and Plan Assessment: 1 Acute on chronic back pain requiring multiple narcotics, muscle relaxants 2 Obstructive sleep apnea, maintained on CPAP in the outpatient setting 3 Morbid obesity with suspected obesity/hypoventilation syndrome 4 Acute hypoxemic/hypercapnic respiratory failure secondary to above 5 Chronic and ongoing tobacco dependence 6 Acute exacerbation of chronic obstructive pulmonary disease 7 Anxiety/depression 8 Diabetes mellitus with diabetic neuropathy 9 Chronic wound of the right foot, cultures positive for strep agalactiae group B, currently on cefazolin and clindamycin 10 Bacteremia with strep agalactiae group B secondary to above Plan: The patient was seen and evaluated by Dr. Deanna Ponce from the pulmonary standpoint Utilize the BiPAP throughout the night and during the day while napping Continue bronchodilators Continue antibiotics per ID Educated regarding the importance of complete smoking cessation We'll continue to follow and make further recommendations based on her clinical status I, the cosigning physician, performed a history & physical examination of the patient. Lungs sounds with faint crackles in the posterior bases. Maintaining good O2 saturations in the 90s on 3 L/m per nasal cannula. I discussed the assessment and plan of care with my nurse practitioner, Natasha Crabtree. I attest to the above consultation as dictated by her.
[2019-10-30 16:41] LABS: Glucose,Whole Blood 175 mg/dL (75-99)
[2019-10-30 20:06] LABS: Glucose,Whole Blood 94 mg/dL (75-99)
[2019-10-30] MEDS: ASPIRIN 81 MG PO SCH (20:21)
[2019-10-30] MEDS: PRAMIPEXOLE 0.5 MG TAB PO SCH (20:21)
[2019-10-30] MEDS: LOSARTAN 25 MG TAB PO SCH (20:21)
[2019-10-30] MEDS: lamoTRIgine 100 MG TAB PO SCH (20:21)
[2019-10-30] MEDS: DULoxetine HCL 60 MG CAPSULE.DR PO SCH (20:21)
[2019-10-30] MEDS: INSULIN DETEMIR (LEVEMIR) 100 UNIT/ML SYR SQ SCH (20:38)
--- NOTE | 2019-10-30 23:14 | PN ---
PROGRESS NOTE DATE OF SERVICE: 10/30/2019 REASON FOR FOLLOWUP: Streptococcus agalactiae bacteremia secondary to right diabetic foot infection. INTERVAL HISTORY: The patient is currently afebrile. The patient is breathing comfortably. The patient denies having any chest pain or shortness of breath or cough. No abdominal pain or any worsening pain to the right foot. PHYSICAL EXAMINATION: Blood pressure 129/67 with a pulse of 92, temperature 98.5. She is 99% on 4 L nasal cannula. General description is a middle-aged female lying in bed in no distress. RESPIRATORY SYSTEM: Unlabored breathing. Clear to auscultation anteriorly. HEART: S1, S2. Regular rate and rhythm. ABDOMEN: Soft. No tenderness. Right foot is currently dressed up. No obvious drainage on the dressing. LABS: Hemoglobin is 10.4, white count 8.8. BUN of 15, creatinine 0.60. DIAGNOSTIC IMPRESSION AND PLAN: Patient with Streptococcus agalactiae bacteremia. Source is right diabetic foot infection. No evidence of any abscess on CT. Patient is covered with cefazolin 2 grams q.8 hours; to continue in the outpatient setting. She already has a midline. Duration of antibiotic should be at least 2 weeks. Local wound care with Aquacel Silver dressing. Close outpatient followup. MMODL / IJN: [id number] /
[2019-10-31] MEDS: CLINDAMYCIN 600 MG in DEXTROSE 5% IN WATER 50 ML IVPB SCH ×6 (01:07→12:56)
[2019-10-31 02:32] LABS: Glucose,Whole Blood 193 mg/dL (75-99)
[2019-10-31] MEDS: ALBUTEROL NEBULIZED 2.5 MG/3 ML INHALATION SCH ×5 (02:39→15:51)
[2019-10-31] MEDS: HYDROcodone/APAP 5-325MG 1 EACH TAB PO PRN ×2 (04:36→10:14)
[2019-10-31 07:09] LABS: Glucose,Whole Blood 169 mg/dL (75-99)
[2019-10-31] MEDS: INSULIN ASPART (NovoLOG) 100 UNIT/ML VIAL SQ SCH ×4 (07:45→12:56)
[2019-10-31] MEDS: methylPREDNISolone 4 MG TAB TAPER PO SCH (07:46)
[2019-10-31] MEDS: ENOXAPARIN 40 MG/0.4 ML SYRINGE SQ SCH (07:46)
[2019-10-31 08:10] VITALS: TEMP 98.1
[2019-10-31] MEDS: SYMBICORT 80-4.5 MCG INHALER INHALATION SCH (08:10)
--- NOTE | 2019-10-31 11:32 | P.PN ---
Subjective Progress Note Date: 10/31/19 Principal diagnosis: Back pain status post fall, MOIZ This is a very pleasant 64-year-old female patient who follows with Dr. Román Lou as her primary care provider. She has a history of anxiety, depression, diabetes mellitus, neuropathy, morbid obesity, obstructive sleep apnea, congestive heart failure. She had fallen one day last week under her back and right chest. She presented here to the emergency room on 10/26/2019 with complaints of ongoing back pain. She had been having some pain with movement and difficulty breathing as well. She was also found to be febrile with a temperature of 103. She had undergone hysterectomy in July of this year and developed pneumonia following that. She also has a right foot wound infection that has been somewhat chronic in nature. Chest x-ray showed no acute pulmonary process. CT angiogram was negative for pulmonary emboli. Some mild atelectatic changes in the lung bases. Earlier this morning she was having complaints of increasing shortness of breath and we are consulted for the same. She is seen on the regular medical floor. She is currently sitting up in a chair at the bedside. She is on 4 L nasal cannula with O2 saturation 97%. She is somewhat difficult to arouse but once awake is appropriate but drifts back off easily. She has been maintained on Mirapex, morphine, Biggs, Xanax, Atarax, Flexeril. S he is maintained on Breo and albuterol in the outpatient setting. She did wear the BiPAP last night with settings of 18/8 and 35% FiO2. She states she is compliant with her home CPAP machine. She's been on it for approximate 8 years she states. She is a smoker as well. Blood cultures are positive for strep agalactiae group B as well as the right foot wound culture. White count 9.0. Hemoglobin 11.2. Sodium 133. Potassium 4.3. Creatinine 0.74. Daley virus not detected. ABGs were obtained and 32% FiO2 which revealed a pO2 of 106, pCO2 of 44 and a pH is 7.36. The patient is seen today 10/30/2019 in follow-up on the regular medical floor. She is awake and alert in no acute distress. She did utilize the BiPAP throughout the evening. She denies any worsening shortness of breath, cough or congestion. Currently maintaining O2 saturations in the 90s on 3 L/m per nasal cannula. Chest x-ray reveals cardiomegaly with interstitial changes and mild pulmonary vascular congestion. Continue on Symbicort and albuterol. Wound culture from the right foot is positive for strep agalactiae. CAT scan of the foot revealed soft tissue edema, currently for cellulitis. Osteoarthritic c hanges. Postop changes. No signs of osteomyelitis. White count 8.8. Hemoglobin 10.4. Sodium 134. Potassium 4.5. Creatinine 0.60. She remains on clindamycin and cefazolin. The patient is seen today 10/31/2019 in follow-up on the regular medical floor. She is currently sitting up in a chair at the bedside. Much more awake and alert today. She denies any worsening shortness of breath, cough or congestion. Maintaining O2 saturations in the low 90s on 2 L/m per nasal cannula she was 88% on room air. Blood culture reveals no growth to date. Wound culture positive for strep agalactiae group B. She remains on clindamycin and cefazolin. ID is on the case. Objective - Vital Signs Vital signs: Vital Signs Temp 98.1 F 10/31/19 07:06 Pulse 88 10/31/19 08:23 Resp 16 10/31/19 08:00 BP 126/80 10/31/19 07:06 Pulse Ox 92 L 10/31/19 11:05 Intake & Output 10/30/19 10/31/19 10/31/19 18:59 06:59 18:59 Intake Total 640 50 Balance 640 50 Intake: Intake, IV Titration 100 50 Amount Clindamycin 600 mg In 50 50 Dextrose 5% in Water 50 ml @ 50 mls/hr IVPB Q6HR GISELLA Rx#:[id number] ceFAZolin 2 gm In Sodium 50 Chloride 0.9% 50 ml @ 100 mls/hr IVPB Q8HR GISELLA Rx# :[id number] Oral 540 Other: Voiding Method Toilet Toilet Toilet Bedside Commode Diaper # Voids 1 # Bowel Movements 1 - Exam GENERAL EXAM: Awake and alert today. Pleasant 64-year-old morbidly obese female patient, on 2 L nasal cannula, in no apparent distress. HEAD: Normocephalic. EYES: Normal reaction of pupils, equal size. NOSE: Clear with pink turbinates. THROAT: There is crowding the posterior pharynx. No erythema or exudates. NECK: Short. No masses, no JVD. CHEST: No chest wall deformity. LUNGS: Equal air entry with faint crackles in the posterior bases. CVS: S1 and S2 normal with no audible murmur, regular rhythm. ABDOMEN: No hepatosplenomegaly, normal bowel sounds, no guarding or rigidity. SPINE: No scoliosis or deformity SKIN: No rashes CENTRAL NERVOUS SYSTEM: No focal deficits, tone is normal in all 4 extremities. EXTREMITIES: Dressing to the right foot There is 1+ peripheral edema. No clubbing, no cyanosis. Peripheral pulses are intact. - Labs CBC & Chem 7: 10/30/19 07:54 10/30/19 07:54 Labs: Abnormal Lab Results - Last 24 Hours (Table) 10/30/19 10/31/19 10/31/19 Range/Units 16:40 02:31 07:05 POC Glucose (mg/dL) 175 H 193 H 169 H (75-99) mg/dL Microbiology - Last 24 Hours (Table) 10/28/19 09:47 Blood Culture - Preliminary Blood No Growth after 48 hours 10/26/19 11:22 Blood Culture Gram Stain - Final Blood Blood Culture - Final Strep agalactiae - (group b) Assessment and Plan Assessment: 1 Acute on chronic back pain requiring multiple narcotics, muscle relaxants 2 Obstructive sleep apnea, maintained on CPAP in the outpatient setting 3 Morbid obesity with suspected obesity/hypoventilation syndrome 4 Acute hypoxemic/hypercapnic respiratory failure secondary to above 5 Chronic and ongoing tobacco dependence 6 Acute exacerbation of chronic obstructive pulmonary disease 7 Anxiety/depression 8 Diabetes mellitus with diabetic neuropathy 9 Chronic wound of the right foot, cultures positive for strep agalactiae group B, currently on cefazolin and clindamycin 10 Bacteremia with strep agalactiae group B secondary to above, follow-up blood culture reveals no growth Plan: The patient was seen and evaluated by Dr. Deanna Ponce for discharge from the pulmonary standpoint Utilize her home CPAP throughout the night and during the day while napping Continue bronchodilators Continue antibiotics per ID Again educated regarding the importance of complete smoking cessation May require home oxygen, to be tested prior to discharge She will follow-up with her PCP and artificial stone setter out of the [facility] I, the cosigning physician, performed a history & physical examination of the patient. Lungs sounds with faint crackles in the posterior bases. Maintaining good O2 saturations in the 90s on 2 L/m per nasal cannula. I discussed the assessment and plan of care with my nurse practitioner, Natasha Crabtree. I attest to the above consultation as dictated by her.
[2019-10-31 11:43] LABS: Glucose,Whole Blood 80 mg/dL (75-99)
--- NOTE | 2019-10-31 14:43 | P.DS ---
Providers Date of admission: 10/26/19 14:49 Expected date of discharge: 10/31/19 Attending physician: Sofia Lamb DO Consults: 10/26/19 17:45 Consult Physician Routine Consulting Provider: Uriel Mary Consult Reason/Comments: Sepsis undetermined cause Do you want consulting provider notified?: Yes 10/29/19 08:12 Consult Physician Urgent Consulting Provider: Lizz Huerta Consult Reason/Comments: Shortness of breath Do you want consulting provider notified?: Yes Primary care physician: [facility] Course: 64-year-old female with PMH of heart failure, diabetes mellitus, obstructive sleep apnea and arthritis presented to the ED for rib pain, back pain especially with movement and with breathing. In the ED, she was found to be febrile with T-max of 102.7, pulse of 122, respiration of 26 and blood pressure 127/68. Laboratory analysis showed a leukocytosis of 18.7 with lymphopenia, d-dimer elevated to 1.54, sodium of 1:30, BUN of 21, creatinine of 1.16, lactic acid of 2.1, magnesium of 1.3, LDH of 836, CRP of 192 and BNP of 539. Troponin was negative. Urinalysis was negative. Chest x-ray was negative. CT of the chest ruled out PE and showed no acute process. CT of the abdomen and pelvis showed left-sided thickening of the colon. Right foot x-ray was obtained which showed mild soft tissue swelling but no osteomyelitis. Her back pain was thought to be musculoskeletal nature which was treated with morphine, Randall and Flexeril as needed. PT was consulted and recommended subacute rehab but patient preferred to go home. Patient met sepsis criteria with undetermined etiology. There were concerns for COVID 19, colitis versus cellulitis of the right lower extremity. She was initially started on Unasyn and vancomycin and blood cultures were obtained. CT of the foot showed no osteomyelitis. Infectious disease was consulted and followed the patient during her hospitalization. Her lactic acidosis was treated with IVF and was trended until negative. Patient showed increased oxygen requirements and pulmonology was consulted. Pulmonology recommended discontinuing her narcotic medication and for her to utilize her BiPAP. Her hypoxic respiratory failure was thought to be secondary to obstructive sleep apnea and obesity hypoventilation syndrome. She did have blood cultures that were positive for group B strep. Her wound culture was also positive for group B strep. Repeat blood culture was negative at the time of discharge. Infectious disease recommended switching her antibiotics to clindamycin and cefazolin and to continue cefazolin for 2 weeks in the outpatient setting IV. She was able to get a midline during her hospitalization. Her LDH, CRP and d-dimer trended down at the time of discharge but were still elevated. She did have an elevated pro-calcitonin suggestive of pneumonia. Patient was seen and examined. No acute events overnight. Patient reports significant improvement in her breathing, almost back to baseline. She has no other complaints today. She denies any chest pain or palpitations. No nausea or vomiting. No fever or chills. General: [no distress], [appears at stated age] Derm: [warm], [dry], [right foot 2 lesions with serous drainage] Head: [atraumatic], [normocephalic], [symmetric] Eyes: [EOMI], [no lid lag], [anicteric sclera] Mouth: [no lip lesion], [mucus membranes moist] Cardiovascular: [S1S2 reg], [no murmur], [positive DP pulse bilateral], Lungs: [Decreased breath sounds bilateral with scattered wheezing], [no rhonchi, no rales] , [no accessory muscle use] Abdominal: [soft], [ nontender to palpation], [no guarding], [no appreciable organomegaly] Ext: [no gross muscle atrophy], [no edema], [no contractures] Neuro: [no focal neuro deficits] Psych: [Alert], [oriented], [appropriate affect] Acute hypoxic respiratory failure likely related to obstructive sleep apnea, obesity hypoventilation syndrome -Decreasing oxygen requirements today -Pulmonology recommendations appreciated, discontinue narcotic pain medication, utilize BiPAP -Repeat chest x-ray shows interstitial change -6 minute walk test showing that patient requires home O2 Sepsis likely related to cellulitis with bacteremia versus COVID 19 - My concern is cellulitis VS COVID, less likely colitis - CTA without pneumonia or Pulmonary embolism -CT abdomen and pelvis does show possible colitis. However patient without symptoms of colitis -Patient does have 2 right lower extremity wounds that they do not appear infected -Unasyn and vancomycin switched to clindamycin and cefazolin 10/28/2019, continue cefazolin 2 g IV every 8 hours for 2 weeks as per ID recommendations, midline obtained -Consult ID -Blood cultures positive group B strep, Repeat blood cultures negative so far -Patient showing elevated LDH, CRP and d-dimer consistent with COVID, repeat yesterday shows decreasing and d-dimer, LDH and CRP -Elevated pro-calcitonin suggestive of pneumonia Congestive heart failure, unknown type -Does not appear to be in acute exacerbation - ARB, not chronically on BB or diuretic DM 2 with nonhealing foot lesions and neuropathy - Resume long acting and fixed dose - add sliding sclae - follow BS - A1c 8.7 Asthma without exacerbation - resume home medications Obstructive sleep apnea - CPAP from home Restless leg syndrome - mirapex Morbid obesity with BMI 45.6 -Outpatient structured weight loss Resolved: Lactic acidosis, hypomagnesemia, back pain [Patient's symptoms have greatly improved. Her tachycardia is resolving. She requires home oxygen on discharge. Discussed with Dr. Huerta, thinks that this is not coronavirus. Continue 2 weeks of cefazolin IV as per ID recommendations for bacteremia and cellulitis. Repeat coronavirus testing pending at the time of discharge. Restart all home medications. Medrol Dosepak on discharge. Discussed with case management to obtain a nebulizer machine. Follow pulmonology and infectious disease in the outpatient setting. Anticipate DC h ome today. This complex discharge took about 45 minutes to complete.] Pertinent Studies: Chest x-ray, chest CTA, CT abdomen and pelvis, foot x-ray, foot CT Patient Condition at Discharge: Stable Plan - Discharge Summary Discharge Rx Participant: No New Discharge Prescriptions: New ceFAZolin [Kefzol] 2 gm IVP Q8HR #42 vial methylPREDNISolone Dose Pack [Medrol Dose Pack] 4 mg PO DIRECTED #21 package Albuterol Nebulized [Ventolin Nebulized] 2.5 mg INHALATION RT-QID PRN #90 ampul PRN Reason: Shortness Of Breath Or Wheezing Continue ALPRAZolam 1 mg PO DAILY PRN PRN Reason: Anxiety Pramipexole [Mirapex] 1 mg PO HS lamoTRIgine 150 mg PO HS DULoxetine HCL [Cymbalta] 120 mg PO HS Insulin Glargine,Hum.rec.anlog [Lantus Solostar] 40 unit SQ HS Pramipexole [Mirapex] 1 mg PO HS INSULIN ASPART (NovoLOG) [NovoLOG (formulary)] 16 unit SQ AC-TID Losartan Potassium [Cozaar] 25 mg PO HS Aspirin EC [Ecotrin Low Dose] 81 mg PO HS Albuterol Sulfate [Ventolin HFA] 1 - 2 puff INHALATION RT-Q6H PRN PRN Reason: Shortness Of Breath Fluticasone/Vilanterol [Breo Ellipta 100-25 Mcg Inhaler] 1 puff INHALATION RT-DAILY Multivitamins, Thera [Multivitamin (formulary)] 1 tab PO DAILY Biotin 5 mg PO DAILY Discontinued INSULIN ASPART (NovoLOG) [NovoLOG (formulary)] 8 unit SQ TID BETWEEN MEALS hydrOXYzine HCL [Atarax] 20 mg PO HS Discharge Medication List ALPRAZolam 1 mg PO DAILY PRN 10/20/16 [History] DULoxetine HCL [Cymbalta] 120 mg PO HS 10/20/16 [History] Pramipexole [Mirapex] 1 mg PO HS 10/20/16 [History] lamoTRIgine 150 mg PO HS 10/20/16 [History] Albuterol Sulfate [Ventolin HFA] 1 - 2 puff INHALATION RT-Q6H PRN 10/26/19 [History] Aspirin EC [Ecotrin Low Dose] 81 mg PO HS 10/26/19 [History] Biotin 5 mg PO DAILY 10/26/19 [History] Fluticasone/Vilanterol [Breo Ellipta 100-25 Mcg Inhaler] 1 puff INHALATION RT- DAILY 10/26/19 [History] INSULIN ASPART (NovoLOG) [NovoLOG (formulary)] 16 unit SQ AC-TID 10/26/19 [History] Insulin Glargine,Hum.rec.anlog [Lantus Solostar] 40 unit SQ HS 10/26/19 [History] Losartan Potassium [Cozaar] 25 mg PO HS 10/26/19 [History] Multivitamins, Thera [Multivitamin (formulary)] 1 tab PO DAILY 10/26/19 [History] Pramipexole [Mirapex] 1 mg PO HS 10/26/19 [History] ceFAZolin [Kefzol] 2 gm IVP Q8HR #42 vial 10/30/19 [Rx] Albuterol Nebulized [Ventolin Nebulized] 2.5 mg INHALATION RT-QID PRN #90 ampul 10/31/19 [Rx] methylPREDNISolone Dose Pack [Medrol Dose Pack] 4 mg PO DIRECTED #21 package 10/31/19 [Rx] Follow up Appointment(s)/Referral(s): Lizz Huerta MD [STAFF PHYSICIAN] - 1 Week (Office closed at time of discharge please call SundayNovember 02 to set up a follow up appointment) [facility], [NON-STAFF] - As Needed [facility], [REFERRING] - Uriel Mary MD [STAFF PHYSICIAN] - 1 Week Román Head MD [Primary Care Provider] - 1-2 days (Office closed at time of discharge please call SundayNovember 02 to set up a follow up appointment) Activity/Diet/Wound Care/Special Instructions: Home Oxygen and nebulizer to be delivered prior to discharge - [facility] - [phone] Diet: Diabetic FU PCP within 3 days of DC. FU Pulmonology within 1 week of DC. FU Infectious disease within 1 week of DC. Take all medications as advised. You will need IV antibiotics for 2 weeks. 6 minute walk test to access for home O2 needs. Obtain Midline prior to DC. Discharge Disposition: HOME SELF-CARE
[2019-10-31 15:20] VITALS: BP 152/83; PULSE 92; RESP 18
--- NOTE | 2019-10-31 16:30 | PN ---
PROGRESS NOTE DATE OF SERVICE: 10/31/2019 REASON FOR FOLLOW UP: Streptococcus agalactiae bacteremia secondary right diabetic foot infection. INTERVAL HISTORY: Patient is currently afebrile. The patient overall is feeling better. Breathing comfortably. The patient denies having any chest pain. No shortness of breath or cough. No nausea, vomiting, abdominal pain or pain to the right foot. PHYSICAL EXAMINATION: Blood pressure is 126/80 with a pulse of 91, temperature 98.1. She is 96% on 4 L. General description: Middle-aged female up in the chair in no distress. Respiratory system: Unlabored breathing, clear to auscultation anteriorly. Heart S1, S2. Regular rate and rhythm. Abdomen soft. No tenderness. Right foot is currently dressed up. No obvious drainage on the dressing. LABS: No new labs have been obtained today. Blood cultures 10/27 has been negative. DIAGNOSTIC IMPRESSION AND PLAN: Patient with right diabetic foot infection in this patient with local wound culture positive for now also has Streptococcus agalactiae bacteremia. CT of the foot was negative for any abscess. The patient has a mid PICC line and she will continue with cefazolin 2 grams q.8 hours for another 2 weeks. Local wound care with Aquacel dressing and close outpatient followup as the patient's home care nurse will not be able to get there until tomorrow morning, we will give her 1 dose of Rocephin 2 grams daily to bridge her until tomorrow morning. MMODL / IJN: [id number] /
--- NOTE | 2019-11-04 09:49 | CDI ---
Documentation Clarification Form Date: 11/04/2019 09:20:24 AM From: Noreen Burns RN, CCDS Admit Date: 10/26/2019 02:49:00 PM Patient Name: Cayla Carr Visit Number: [id number] Discharge Date: 10/31/2019 04:28:00 PM ATTENTION: The Clinical Documentation Specialists (CDI) and [facility] Coding Staff appreciate your assistance in clarifying documentation. Please respond to the clarification below the line at the bottom and electronically sign. The CDI & [facility] Coding staff will review the response and follow-up if needed. Please note: Queries are made part of the Legal Health Record. If you have any questions, please contact the author of this message via ITS. Dr. Babcock Conflicting documentation is found in the documentation and D/C Summary regarding Covid-19 status. Please provide clarification with definitive diagnosis. Patient history/risk factors: DM, MOIZ, CHF, Smoker Clinical Indicators: 10/25 ID Consult: clinically doubt Covid 19 in this patient with no significant respiratory symptoms and CT of the chest did not show chronic loss opacities is very common with the Covid19 infection (1) Sepsis." 10/28-10/30 Pulmonary Progress Notes: "Daley virus not detected." 10/30 D/C Summary: "There were concerns for COVID 19, colitis versus Cellulitis of the right lower extremity. Sepsis likely related to cellulitis with bacteremia versus COVID 19 - My concern is cellulitis VS COVID, less likely colitis - CTA without pneumonia or Pulmonary embolism -CT abdomen and pelvis does show possible colitis.-Blood cultures positive group B strep, Repeat blood cultures negative so far -Patient showing elevated LDH, CRP and d-dimer consistent with COVID, repeat yesterday shows decreasing and d-dimer, LDH and CRP. Discussed with Dr. Huerta, thinks that this is not coronavirus. Repeat coronavirus testing pending at the time of discharge." 10/25 CXR: "NO ACTIVE INTRATHORACIC DISEASE." 10/25-10/29 Labs: LDH 836/923/644 CRP: 192.3/432.1/253.3 Ferritin: 86.4/248.5 Procalcitonin: 1.54 D-Dimer: 1.54/1.93/1.19 WBC: 18.7/11.6/8.8 Neutrophils: 17.2/10.5/7.2 10/25 Coronavirus PCR: Negative 10/29 Coronavirus PCR: Negative 10/25 1103 Vital Signs: Temp 102.7, Hr 122, RR 26, B/P 127/68, Spo2 94% 2l NC Treatment: Consult: ID and Pulmonary- [facility] IV Unasyn 3gm IVPB Q 8 hrs 10/27-10/30 Cefazolin 2gm IVPB Q 8 hrs 10/27-10/30 Clindamycin 600mg IVPB Q 6 hrs 10/25 2L 0.9% NS IVF Bolus IV Vanco PTD In order to capture the severity of condition, please clarify if the above treatment/clinical indicators signify: COVID-19 False Negative testing as evidenced by... (Please provide clinical indicators why you believe COVID is present.) COVID-19 ruled out COVID-19 confirmed Other, please specify (Last Form Revision: June 2019) covid 19 ruled out MTDD
--- NOTE | 2019-11-04 12:50 | CDI ---
Documentation Clarification Form Date: 11/04/19 From: Indu Hemphill CCS Phone: If you have a question about this query, please contact Lili Lewis, Staff Submarine Warfare Officer at [phone] between 8am and 5pm. Admit Date: 10/26/19 Discharge Date:10/31/19 Patient Name: Cayla Carr Visit Number: [id number] ATTENTION: The Clinical Documentation Specialists (CDI) and [facility] Coding Staff appreciate your assistance in clarifying documentation. Please respond to the clarification below the line at the bottom and electronically sign. The CDI & [facility] Coding staff will review the response and follow-up if needed. Please note: Queries are made part of the Legal Health Record. If you have any questions, please contact the author of this message via ITS. Dear Dr. Babcock, Documentation in the Midline Operative Report included: Right forearm vein accessed. Catheter tip visualized in vein prior to advancement. 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
== END 2019-10-31 16:28 | disposition home health service (06) | DRG 871 ==
LOC: EC 11:00 → 4SSUR 14:49
PROVIDERS: ADMIT Internal Medicine; ATTEND Internal Medicine
PROC: 5A09357 Assistance with Respiratory Ventilation, Less than 24 Consecutive Hours, Continuous Positive Airway Pressure (ICD-10-PCS; principal; 2019-10-28)
PROC: 05HB33Z Insertion of Infusion Device into Right Basilic Vein, Percutaneous Approach (ICD-10-PCS; 2019-10-29 09:50)
DX: A40.1 Sepsis due to streptococcus, group B (principal); J96.01 Acute respiratory failure with hypoxia; J96.02 Acute respiratory failure with hypercapnia; E87.2 Acidosis; J44.1 Chronic obstructive pulmonary disease with (acute) exacerbation; E66.2 Morbid (severe) obesity with alveolar hypoventilation; Z68.42 Body mass index [BMI] 45.0-49.9, adult; L03.115 Cellulitis of right lower limb; Z20.828 Contact with and (suspected) exposure to other viral communicable diseases; R16.0 Hepatomegaly, not elsewhere classified; L97.514 Non-pressure chronic ulcer of other part of right foot with necrosis of bone; I50.9 Heart failure, unspecified; E11.621 Type 2 diabetes mellitus with foot ulcer; E11.628 Type 2 diabetes mellitus with other skin complications; E11.40 Type 2 diabetes mellitus with diabetic neuropathy, unspecified; Z79.4 Long term (current) use of insulin; G25.81 Restless legs syndrome; F41.9 Anxiety disorder, unspecified; F32.9 Major depressive disorder, single episode, unspecified; M19.90 Unspecified osteoarthritis, unspecified site; F17.200 Nicotine dependence, unspecified, uncomplicated; N28.9 Disorder of kidney and ureter, unspecified; E83.42 Hypomagnesemia; M54.9 Dorsalgia, unspecified; D72.810 Lymphocytopenia; G89.29 Other chronic pain; G47.419 Narcolepsy without cataplexy; K21.9 Gastro-esophageal reflux disease without esophagitis; K58.9 Irritable bowel syndrome, unspecified; R74.0 Nonspecific elevation of levels of transaminase and lactic acid dehydrogenase [LDH]; W01.0XXA Fall on same level from slipping, tripping and stumbling without subsequent striking against object, initial encounter; Z71.6 Tobacco abuse counseling; Z71.3 Dietary counseling and surveillance; Z79.82 Long term (current) use of aspirin; Z79.899 Other long term (current) drug therapy; Z90.710 Acquired absence of both cervix and uterus; Z87.01 Personal history of pneumonia (recurrent); Z96.653 Presence of artificial knee joint, bilateral; Z96.611 Presence of right artificial shoulder joint; Z98.890 Other specified postprocedural states; Z88.8 Allergy status to other drugs, medicaments and biological substances; Z82.5 Family history of asthma and other chronic lower respiratory diseases; Z82.69 Family history of other diseases of the musculoskeletal system and connective tissue; Z82.61 Family history of arthritis; Z82.49 Family history of ischemic heart disease and other diseases of the circulatory system
CPT/HCPCS: 36410; 36415; 36600; 71045; 71046; 71275; 74177; 76937; 80053; 81001; 82728; 82805; 83036; 83605; 83615; 83735; 83880; 84145; 84484; 85025; 85379; 85610; 85730; 86140; 87040; 87070; 87077; 87186; 87205; 93005; 94640; 94660; 94760; 96361; 96365; 96366; 96367; 96368; 96372; 96375; 96376; 99291

== ENCOUNTER 2019-11-17 19:45 | Emergency (ER) | payer MEDICARE ==
[2019-11-17] MEDS ORDERED: SODIUM CHLORIDE 0.9% 500 ML 500 ML IV STA (20:59)
[2019-11-17] MEDS ORDERED: MORPHINE SULFATE 4 MG/ML SYRINGE IV STA (20:59)
[2019-11-17 21:30] LABS: Basophils % (A) 1 %; Eosinophils # (A) 0.2 k/uL (0-0.7); Eosinophils % (A) 3 %; HCT 38.7 % (34.0-46.0); HGB 12.2 gm/dL (11.4-16.0); Lymphocytes # (A) 1.1 k/uL (1.0-4.8); Lymphocytes % (A) 17 %; MCH 27.9 pg (25.0-35.0); MCHC 31.5 g/dL (31.0-37.0); MCV 88.6 fL (80.0-100.0); Mean Platelet Volume 6.7; Monocytes # (A) 0.3 k/uL (0-1.0); Monocytes % (A) 5 %; Neutrophils # (A) 4.6 k/uL (1.3-7.7); Neutrophils % (A) 72 %; Platelet Count 344 k/uL (150-450); RBC 4.37 m/uL (3.80-5.40); RDW 14.6 % (11.5-15.5); WBC 6.3 k/uL (3.8-10.6)
[2019-11-17 21:39] LABS: ALT 11 U/L (4-34); AST 24 U/L (14-36); African American GFR (CKD) >90 (>60 ml/min/1.73 sqM); Albumin 3.7 g/dL (3.5-5.0); Alkaline Phosphatase 94 U/L (38-126); Anion Gap 7 mmol/L; Blood Urea Nitrogen 9 mg/dL (7-17); Calcium 9.2 mg/dL (8.4-10.2); Carbon Dioxide 31 mmol/L (22-30); Chloride 96 mmol/L (98-107); Glucose 328 mg/dL (74-99); Non-African American GFR(CKD) >90 (>60 ml/min/1.73 sqM); Potassium 3.9 mmol/L (3.5-5.1); Sodium 134 mmol/L (137-145); Total Bilirubin 0.6 mg/dL (0.2-1.3); Total Protein 7.5 g/dL (6.3-8.2)
[2019-11-17 21:59] LABS: Appearance,Urine Cloudy (Clear); Bacteria,Urine Rare /hpf; Bilirubin,Urine Negative (Negative); Blood,Urine Moderate (Negative); Color,Urine Yellow; Glucose,Urine (UA) 3+ (Negative); Hyaline Casts,Urine 1 /lpf (0-2); Ketones,Urine 1+ (Negative); Leukocyte Esterase,Urine Large (Negative); Mucus,Urine Occasional /hpf; Nitrite,Urine Negative (Negative); Protein,Urine 1+ (Negative); RBC,Urine 13 /hpf (0-5); Specific Gravity,Urine 1.032 (1.001-1.035); Squamous Epithelial Cell,Urine 26 /hpf (0-4); Urobilinogen,Urine <2.0 mg/dL (<2.0); WBC,Urine 13 /hpf (0-5)
[2019-11-17] MEDS ORDERED: KETOROLAC 30 MG/ML 1 ML VIAL IVP STA (22:31)
[2019-11-17] MEDS ORDERED: diazePAM 5 MG TAB PO STA (22:31)
--- NOTE | 2019-11-17 22:35 | XR ---
EXAMINATION TYPE: XR lumbar spine 2 or 3V DATE OF EXAM: 11/17/2019 COMPARISON: NONE HISTORY: Right-sided pain TECHNIQUE: 3 views FINDINGS: As mild lumbar dextroscoliosis. There is disc space narrowing at L4-5 with spurring. There is similar disc space narrowing and spurring at L1-2. I see no significant compression deformity. Pos terior elements appear intact. Sacroiliac joints appear normal. IMPRESSION: Spondylotic changes as above. No fracture seen.
--- NOTE | 2019-11-17 22:39 | XR ---
EXAMINATION TYPE: XR thoracic spine complete DATE OF EXAM: 11/17/2019 COMPARISON: NONE HISTORY: Back pain TECHNIQUE: 3 views FINDINGS: Vertebra have fairly normal alignment. There is anterior wedging 25% of the 11 vertebra. Th ere is probably hiatal hernia. I see no definite thoracic paraspinal mass. IMPRESSION: There is T11 compression fracture that is probably acute and appears new compared to the lateral chest x-ray of 10/18/2019
[2019-11-17 23:14] VITALS: RESP 20
--- NOTE | 2019-11-17 23:29 | ED ---
General Adult HPI - General Chief complaint: Back Pain/Injury Stated complaint: Back Pain Time Seen by Provider: 11/17/19 19:57 Source: patient, RN notes reviewed, old records reviewed Mode of arrival: wheelchair Limitations: no limitations - History of Present Illness Initial comments: 64-year-old female patient proceeded chief complaint of right thoracic back pain. Patient reports that she had a fall approximately a month ago where she landed on her back and has been having pain ever since then. Denies any other acute complaints at this time. Denies any recent falls. Abdomen flag symptoms. Systemic: Pt denies fatigue, fever/chills, rash. Pt denies weakness, night sweats, weight loss. Neuro: Pt denies headache, visual disturbances, syncope or pre-syncope. HEENT: Pt denies ocular discharge or irritation, otalgia, rhinorrhea, pharyngitis or notable lymphadenopathy. Cardiopulmonary: Pt denies chest pain, SOB, heart palpitations, dyspnea on exertion. Abdominal/GI: Pt denies abdominal pain, n/v/d. : Pt denies dysuria, burning w/ urination, frequency/urgency. Denies new onset urinary or bowel incontinence. MSK: Pt denies loss of strength or function in extremities. Neuro: Pt denies new onset weakness, paresthesias. - Related Data Home Medications Medication Instructions Recorded Confirmed ALPRAZolam 1 mg PO DAILY PRN 10/20/16 10/26/19 DULoxetine HCL [Cymbalta] 120 mg PO HS 10/20/16 10/26/19 Pramipexole [Mirapex] 1 mg PO HS 10/20/16 10/26/19 lamoTRIgine 150 mg PO HS 10/20/16 10/26/19 Albuterol Sulfate [Ventolin HFA] 1 - 2 puff INHALATION RT-Q6H PRN 10/26/1909/29 Aspirin EC [Ecotrin Low Dose] 81 mg PO HS 10/26/19 10/26/19 Biotin 5 mg PO DAILY 10/26/19 10/26/19 Fluticasone/Vilanterol [Breo 1 puff INHALATION RT-DAILY 10/26/19 10/26/19 Ellipta 100-25 Mcg Inhaler] INSULIN ASPART (NovoLOG) [NovoLOG 16 unit SQ AC-TID 10/26/19 10/26/19 (formulary)] Insulin Glargine,Hum.rec.anlog 40 unit SQ HS 10/26/19 10/26/19 [Lantus Solostar] Losartan Potassium [Cozaar] 25 mg PO HS 10/26/19 10/26/19 Multivitamins, Thera [Multivitamin 1 tab PO DAILY 10/26/19 10/26/19 (formulary)] Pramipexole [Mirapex] 1 mg PO HS 10/26/19 10/26/19 Previous Rx's Medication Instructions Recorded ceFAZolin [Kefzol] 2 gm IVP Q8HR #42 vial 10/30/19 Albuterol Nebulized [Ventolin 2.5 mg INHALATION RT-QID PRN #90 10/31/19 Nebulized] ampul methylPREDNISolone Dose Pack 4 mg PO DIRECTED #21 package 10/31/19 [Medrol Dose Pack] Allergies Allergy/AdvReac Type Severity Reaction Status Date / Time metformin AdvReac Intermediate Diarrhea Verified 11/17/19 19:54 Review of Systems ROS Statement: Those systems with pertinent positive or pertinent negative responses have been documented in the HPI. ROS Other: All systems not noted in ROS Statement are negative. Past Medical History Past Medical History: Asthma, Heart Failure, Diabetes Mellitus, GERD/Reflux, Osteoarthritis (OA), Pneumonia, Sleep Apnea/CPAP/BIPAP Additional Past Medical History / Comment(s): IDDM type II, neuropathy bilateral feet, chronic wound R foot/walking boot, MOIZ with bipap, narcolepsy, recent pneumonia, CHF once post op pt states was from fluid overload, back pain, RLS, IBS, sinus problems. History of Any Multi-Drug Resistant Organisms: None Reported Past Surgical History: Cholecystectomy, Heart Catheterization, Hysterectomy, Joint Replacement, Orthopedic Surgery Additional Past Surgical History / Comment(s): L knee arthroscopy, bilateral total knee arthroplasties, reverse R total shoulder, L total shoulder,R foot hammer toe sx, R foot bunionectomy, repair of dislocated 2nd R toe Past Anesthesia/Blood Transfusion Reactions: No Reported Reaction Past Psychological History: Anxiety, Depression Past Alcohol Use History: Occasional Past Drug Use History: None Reported - Past Family History Father Family Medical History: COPD Mother Family Medical History: COPD Sister(s) Family Medical History: COPD, Fibromyalgia, Myocardial Infarction ([place]), Osteoarthritis ([place]) Brother(s) Family Medical History: COPD General Exam - General Exam Comments Initial Comments: Constitutional: NAD, AOX3, Pt has pleasant affect. HEENT: NC/AT, trachea midline, neck supple, no lymphadenopathy. External ears appear normal, without discharge. Mucous membranes moist. Eyes PERRLA, EOM intact. There is no scleral icterus. No pallor noted. Cardiopulmonary: RRR, no murmurs, rubs or gallops, no JVD noted. Lungs CTAB in anterior and posterior blood. No peripheral edema. Abdominal exam: Abdomen soft and non-distended. Abdomen non-tender to palpation in all 4 quadrants. Bowel sounds active in LLQ. No hepatosplenomegaly. No ecchymosis Neuro: CN II-XII grossly intact. No nuchal rigidity. No raccon eyes, no [place] sign, no hemotympanum. No cervical spinal tenderness. MSK: Mild tenderness to para Thoracic lumbar region. Lumbar region nontender. 5 out of 5 strength psoas and quadriceps muscles. Sensation intact. No posterior calf tenderness bilaterally, homans sign negative bilaterally. Posterior tibialis and radial pulse +2 bilaterally. Sensation intact in upper and lower extremities. Full active ROM in upper and lower extremities. Limitations: no limitations Course Vital Signs 11/17/19 11/17/19 19:51 23:09 Temperature 99 F Pulse Rate 54 L 72 Respiratory 16 20 Rate Blood Pressure 162/90 157/103 O2 Sat by Pulse 98 100 Oximetry Medical Decision Making - Medical Decision Making 64-year-old female patient proceeded chief complaint of right thoracic back pain. Patient reports that she had a fall approximately a month ago where she landed on her back and has been having pain ever since then. Denies any other acute complaints at this time. Denies any recent falls. Abdomen flag symptoms. Patient vital signs stable, afebrile. Physical exam displayed: Mild tenderness to para Thoracic lumbar region. Lumbar region nontender. 5 out of 5 strength psoas and quadriceps muscles. Sensation intact. No posterior calf tenderness bilaterally, homans sign negative bilaterally. Posterior tibialis and radial pulse +2 bilaterally. Sensation intact in upper and lower extremities. Full active ROM in upper and lower extremities. Patient will signs are stable, afebrile. Physical exam displayed mild parathoracic tenderness. Laboratory investigations reveal hyperglycemia 328. UA is contaminated. We'll culture. Plain film lumbar spine displayed spondylytic changes plain film of thoracic spine displayed T11 compression fracture that is probably acute with anterior wedging of 25%. Patient pain well-controlled emergency department. Will be discharged with prescription for a TLSO brace, analgesia, muscle relaxers outpatient orthopedic follow-up and follow-up with her primary care provider tomorrow. Return to ER if condition worsens. Case discussed with Dr. Silverman. - Lab Data Result diagrams: 11/17/19 21:20 11/17/19 21:20 Lab Results 11/17/19 11/17/19 11/17/19 Range/Units 21:20 21:20 21:43 WBC 6.3 (3.8-10.6) k/uL RBC 4.37 (3.80-5.40) m/uL Hgb 12.2 (11.4-16.0) gm/dL Hct 38.7 (34.0-46.0) % MCV 88.6 (80.0-100.0) fL MCH 27.9 (25.0-35.0) pg MCHC 31.5 (31.0-37.0) g/dL RDW 14.6 (11.5-15.5) % Plt Count 344 (150-450) k/uL Neutrophils % 72 % Lymphocytes % 17 % Monocytes % 5 % Eosinophils % 3 % Basophils % 1 % Neutrophils # 4.6 (1.3-7.7) k/uL Lymphocytes # 1.1 (1.0-4.8) k/uL Monocytes # 0.3 (0-1.0) k/uL Eosinophils # 0.2 (0-0.7) k/uL Basophils # 0.0 (0-0.2) k/uL Sodium 134 L (137-145) mmol/L Potassium 3.9 (3.5-5.1) mmol/L Chloride 96 L (98-107) mmol/L Carbon Dioxide 31 H (22-30) mmol/L Anion Gap 7 mmol/L BUN 9 (7-17) mg/dL Creatinine 0.63 (0.52-1.04) mg/dL Est GFR (CKD-EPI)AfAm >90 (>60 ml/min/1.73 sqM) Est GFR (CKD-EPI)NonAf >90 (>60 ml/min/1.73 sqM) Glucose 328 H (74-99) mg/dL Calcium 9.2 (8.4-10.2) mg/dL Total Bilirubin 0.6 (0.2-1.3) mg/dL AST 24 (14-36) U/L ALT 11 (4-34) U/L Alkaline Phosphatase 94 (38-126) U/L Total Protein 7.5 (6.3-8.2) g/dL Albumin 3.7 (3.5-5.0) g/dL Urine Color Yellow Urine Appearance Cloudy H (Clear) Urine pH 6.0 (5.0-8.0) Ur Specific [place] 1.032 (1.001-1.035) Urine Protein 1+ H (Negative) Urine Glucose (UA) 3+ H (Negative) Urine Ketones 1+ H (Negative) Urine Blood Moderate H (Negative) Urine Nitrite Negative (Negative) Urine Bilirubin Negative (Negative) Urine Urobilinogen <2.0 (<2.0) mg/dL Ur Leukocyte Esterase Large H (Negative) Urine RBC 13 H (0-5) /hpf Urine WBC 13 H (0-5) /hpf Ur Squamous Epith Cells 26 H (0-4) /hpf Urine Bacteria Rare H (None) /hpf Hyaline Casts 1 (0-2) /lpf Urine Mucus Occasional H (None) /hpf Disposition Clinical Impression: Compression fracture of T11 vertebra Disposition: HOME SELF-CARE Condition: Stable Instructions (If sedation given, give patient instructions): Acute Low Back Pain (ED), Vertebral Compression Fracture (ED) Additional Instructions: Use pain medication only as needed. Fill prescription for brace tomorrow. Follow up with orthopedic consult tomorrow. Follow-up with primary care provider tomorrow. Return to ER if condition worsens. Is patient prescribed a controlled substance at d/c from ED?: No Referrals: Román Head MD [Primary Care Provider] - 1-2 days Julien Stauffer DO [Doctor of Osteopathic Medicine] - 1-2 days Ronnie Jean DO [Doctor of Osteopathic Medicine] - 1-2 days
[2019-11-17 23:53] VITALS: BP 158/108; PULSE 96; TEMP 98.2
--- NOTE | 2019-11-18 14:30 | ED ---
Medical Decision Making - Lab Data Result diagrams: 11/17/19 21:20 11/17/19 21:20 Lab Results 11/17/19 11/17/19 11/17/19 Range/Units 21:20 21:20 21:43 WBC 6.3 (3.8-10.6) k/uL RBC 4.37 (3.80-5.40) m/uL Hgb 12.2 (11.4-16.0) gm/dL Hct 38.7 (34.0-46.0) % MCV 88.6 (80.0-100.0) fL MCH 27.9 (25.0-35.0) pg MCHC 31.5 (31.0-37.0) g/dL RDW 14.6 (11.5-15.5) % Plt Count 344 (150-450) k/uL Neutrophils % 72 % Lymphocytes % 17 % Monocytes % 5 % Eosinophils % 3 % Basophils % 1 % Neutrophils # 4.6 (1.3-7.7) k/uL Lymphocytes # 1.1 (1.0-4.8) k/uL Monocytes # 0.3 (0-1.0) k/uL Eosinophils # 0.2 (0-0.7) k/uL Basophils # 0.0 (0-0.2) k/uL Sodium 134 L (137-145) mmol/L Potassium 3.9 (3.5-5.1) mmol/L Chloride 96 L (98-107) mmol/L Carbon Dioxide 31 H (22-30) mmol/L Anion Gap 7 mmol/L BUN 9 (7-17) mg/dL Creatinine 0.63 (0.52-1.04) mg/dL Est GFR (CKD-EPI)AfAm >90 (>60 ml/min/1.73 sqM) Est GFR (CKD-EPI)NonAf >90 (>60 ml/min/1.73 sqM) Glucose 328 H (74-99) mg/dL Calcium 9.2 (8.4-10.2) mg/dL Total Bilirubin 0.6 (0.2-1.3) mg/dL AST 24 (14-36) U/L ALT 11 (4-34) U/L Alkaline Phosphatase 94 (38-126) U/L Total Protein 7.5 (6.3-8.2) g/dL Albumin 3.7 (3.5-5.0) g/dL Urine Color Yellow Urine Appearance Cloudy H (Clear) Urine pH 6.0 (5.0-8.0) Ur Specific [place] 1.032 (1.001-1.035) Urine Protein 1+ H (Negative) Urine Glucose (UA) 3+ H (Negative) Urine Ketones 1+ H (Negative) Urine Blood Moderate H (Negative) Urine Nitrite Negative (Negative) Urine Bilirubin Negative (Negative) Urine Urobilinogen <2.0 (<2.0) mg/dL Ur Leukocyte Esterase Large H (Negative) Urine RBC 13 H (0-5) /hpf Urine WBC 13 H (0-5) /hpf Ur Squamous Epith Cells 26 H (0-4) /hpf Urine Bacteria Rare H (None) /hpf Hyaline Casts 1 (0-2) /lpf Urine Mucus Occasional H (None) /hpf Disposition Clinical Impression: Compression fracture of T11 vertebra Disposition: HOME SELF-CARE Condition: Stable Instructions (If sedation given, give patient instructions): Vertebral Compression Fracture (ED), Acute Low Back Pain (ED) Additional Instructions: Use pain medication only as needed. Fill prescription for brace tomorrow. Follow up with orthopedic consult tomorrow. Follow-up with primary care provider tomorrow. Return to ER if condition worsens. Prescriptions: Cyclobenzaprine [Flexeril] 1 tab PO TID #20 tablet Hydrocodone/Acetaminophen [[place] 5-325] 1 each PO Q6HR PRN 3 Days #12 tab PRN Reason: Pain Is patient prescribed a controlled substance at d/c from ED?: Yes When asked, does pt state using other controlled substances?: No If prescribed controlled substance>3 days was MAPS reviewed?: Prescribed <3 Days If opioid is for acute pain is fill amount 7 days or less?: Yes If Rx opioid, was Start Talking consent form obtained?: Yes Referrals: Julien Stauffer DO [Doctor of Osteopathic Medicine] - 1-2 days Ronnie Jean DO [Doctor of Osteopathic Medicine] - 1-2 days Román Head MD [Primary Care Provider] - 1-2 days
== END 2019-11-18 00:09 | disposition home or self-care (01) ==
LOC: EC 19:45
DX: S22.089A Unspecified fracture of T11-T12 vertebra, initial encounter for closed fracture (principal); E11.65 Type 2 diabetes mellitus with hyperglycemia; M47.814 Spondylosis without myelopathy or radiculopathy, thoracic region; J45.909 Unspecified asthma, uncomplicated; I50.9 Heart failure, unspecified; E11.42 Type 2 diabetes mellitus with diabetic polyneuropathy; G25.81 Restless legs syndrome; G47.33 Obstructive sleep apnea (adult) (pediatric); K21.9 Gastro-esophageal reflux disease without esophagitis; G47.30 Sleep apnea, unspecified; F41.9 Anxiety disorder, unspecified; F32.9 Major depressive disorder, single episode, unspecified; Z96.653 Presence of artificial knee joint, bilateral; Z79.899 Other long term (current) drug therapy; Z79.51 Long term (current) use of inhaled steroids; Z79.82 Long term (current) use of aspirin; Z79.4 Long term (current) use of insulin; Z88.8 Allergy status to other drugs, medicaments and biological substances; Z99.89 Dependence on other enabling machines and devices; Z95.5 Presence of coronary angioplasty implant and graft; W19.XXXA Unspecified fall, initial encounter
CPT/HCPCS: 36415; 80053; 85025; 81001; 87086; 72072; 72100; 99284; 96374; 96375; 96361 ×2; J2270; J1885

== ENCOUNTER 2019-11-25 12:04 | Inpatient (IN) | payer MEDICARE ==
[2019-11-25] MEDS ORDERED: HYDROmorphone 1 MG/ML 1 ML SYRINGE IM STA (12:34)
--- NOTE | 2019-11-25 12:43 | ED ---
General Adult HPI - General Chief complaint: Back Pain/Injury Stated complaint: Back Pain Time Seen by Provider: 11/25/19 12:09 Source: patient, EMS, RN notes reviewed Mode of arrival: EMS Limitations: no limitations - History of Present Illness Initial comments: Patient is a pleasant 64-year-old female presenting to the emergency Department with back pain. Patient did have a fall on her bottom one month ago. Patient was seen at that time and diagnosed with T11 compression fracture. Patient states she's been having some muscle spasm for the past couple of days. Patient was seen for this and was also seen by Dr. Stauffer. Patient does have back brace. Patient did take [place] and Flexeril prior to arrival. No weakness. No incontinence or retention of bowel or bladder. - Related Data Home Medications Medication Instructions Recorded Confirmed ALPRAZolam 1 mg PO DAILY PRN 10/20/16 11/25/19 DULoxetine HCL [Cymbalta] 120 mg PO HS 10/20/16 11/25/19 lamoTRIgine 150 mg PO HS 10/20/16 11/25/19 Albuterol Sulfate [Ventolin HFA] 1 - 2 puff INHALATION RT-Q6H PRN 10/26/19 11/25/19 Aspirin EC [Ecotrin Low Dose] 81 mg PO HS 10/26/19 11/25/19 Biotin 5 mg PO HS 10/26/19 11/25/19 Fluticasone/Vilanterol [Breo 1 puff INHALATION RT-DAILY 10/26/19 11/25/19 Ellipta 100-25 Mcg Inhaler] Insulin Glargine,Hum.rec.anlog 40 unit SQ HS 10/26/19 11/25/19 [Lantus Solostar] Losartan Potassium [Cozaar] 25 mg PO HS 10/26/19 11/25/19 Multivitamins, Thera [Multivitamin 1 tab PO DAILY 10/26/19 11/25/19 (formulary)] Pramipexole [Mirapex] 1 mg PO HS 10/26/19 11/25/19 Dextroamphetamine/Amphetamine 60 mg PO DAILY 11/17/19 11/25/19 [Adderall Xr] Ibuprofen [Motrin] 600 mg PO BID 11/17/19 11/25/19 Cyclobenzaprine [Flexeril] 5 mg PO TID PRN 11/25/19 11/25/19 HYDROcodone/APAP 10-325MG [[place] 1 tab PO TID PRN 11/25/19 11/25/19 10-325] Insulin Aspart [NovoLOG Flexpen] 8 units SQ TID PRN 11/25/19 11/25/19 Insulin Aspart [NovoLOG Flexpen] 16 units SQ AC-TID 11/25/19 11/25/19 Previous Rx's Medication Instructions Recorded Albuterol Nebulized [Ventolin 2.5 mg INHALATION RT-QID PRN #90 10/31/19 Nebulized] ampul Allergies Allergy/AdvReac Type Severity Reaction Status Date / Time metformin AdvReac Intermediate Nausea & Verified 11/25/19 14:13 Vomiting & Diarrhea Review of Systems ROS Statement: Those systems with pertinent positive or pertinent negative responses have been documented in the HPI. ROS Other: All systems not noted in ROS Statement are negative. Constitutional: Denies: fever Eyes: Denies: eye pain ENT: Denies: ear pain Respiratory: Denies: cough Cardiovascular: Denies: chest pain Endocrine: Denies: fatigue Gastrointestinal: Denies: abdominal pain Genitourinary: Denies: dysuria Musculoskeletal: Reports: back pain Skin: Denies: rash Neurological: Denies: weakness Past Medical History Past Medical History: Asthma, Heart Failure, Diabetes Mellitus, GERD/Reflux, Osteoarthritis (OA), Pneumonia, Sleep Apnea/CPAP/BIPAP Additional Past Medical History / Comment(s): IDDM type II, neuropathy bilateral feet, chronic wound R foot/walking boot, MOIZ with bipap, narcolepsy, recent pneumonia, CHF once post op pt states was from fluid overload, back pain, RLS, IBS, sinus problems. History of Any Multi-Drug Resistant Organisms: None Reported Past Surgical History: Cholecystectomy, Heart Catheterization, Hysterectomy, Joint Replacement, Orthopedic Surgery Additional Past Surgical History / Comment(s): L knee arthroscopy, bilateral total knee arthroplasties, reverse R total shoulder, L total shoulder,R foot hammer toe sx, R foot bunionectomy, repair of dislocated 2nd R toe Past Anesthesia/Blood Transfusion Reactions: No Reported Reaction Past Psychological History: Anxiety, Depression Smoking Status: Never smoker Past Alcohol Use History: Occasional Past Drug Use History: None Reported - Past Family History Father Family Medical History: COPD Mother Family Medical History: COPD Sister(s) Family Medical History: COPD, Fibromyalgia, Myocardial Infarction ([place]), Osteoarthritis ([place]) Brother(s) Family Medical History: COPD General Exam Limitations: no limitations General appearance: alert, in no apparent distress Head exam: Present: normocephalic Eye exam: Present: normal appearance Neck exam: Present: normal inspection Respiratory exam: Present: normal lung sounds bilaterally Cardiovascular Exam: Present: regular rate, normal rhythm Expanded Peripheral pulses: 2+: Posterior Tibialis (R), Posterior Tibialis (L) GI/Abdominal exam: Present: soft. Absent: distended, tenderness, pulsatile mass Extremities exam: Present: normal inspection Back exam: Present: tenderness (Mild tenderness in the lumbar region.) Neurological exam: Present: alert. Absent: motor sensory deficit Expanded Motor strength exam: RLE: 5, LLE: 5 Psychiatric exam: Present: normal affect, normal mood Skin exam: Present: normal color Course Vital Signs 11/25/19 12:18 Temperature 98.2 F Pulse Rate 96 Respiratory 18 Rate Blood Pressure 146/88 O2 Sat by Pulse 94 L Oximetry - Reevaluation(s) Reevaluation #1: 11/25/19 14:05 Call received from radiologist with concerns for burst fracture. Case was discussed with [place] working with Dr. Stauffer who will notify him and call back. 11/25/19 15:03 Case also discussed with [facility] and did talk with Dr. Stauffer. He requests medical admission with ID consult to clear for infection for probable kyphoplasty on . Case was also discussed with Dr. Gaines, who will admit covering for hospital call. Medical Decision Making - Radiology Data Radiology results: report reviewed (T11 burst fracture of posterior elements to the paraspinal region. Or masses discussed with radiologist Dr. Le) Disposition Clinical Impression: Burst fracture of thoracic vertebra Disposition: ADMITTED IP TO THIS HOSP Is patient prescribed a controlled substance at d/c from ED?: No Referrals: Román Head MD [Primary Care Provider] - 1-2 days Decision Time: 15:03
--- NOTE | 2019-11-25 13:50 | CT ---
EXAMINATION TYPE: CT lumbar spine wo con DATE OF EXAM: 11/25/2019 COMPARISON: Plain film 11/17/2019, CT 10/26/2019 HISTORY: Back pain CT DLP: 1774.4 mGycm Automated exposure control for dose reduction was used. An unenhanced CT of the lumbar spine was performed. Bone and soft tissue window settings are submitt ed as well as coronal and sagittal reconstructions. FINDINGS: There is a spinal curvature is noted on plain film. There is a fracture extending into the right post erior elements at T11, burst fracture which is new compared to prior CT. There is retropulsion presen t measuring approximately 4 to 5 mm. Bone fragments extend into the paraspinal location on the right, there May BE local hematoma, there is abnormal increased soft tissue, small right pleural effusion i s present probable associated atelectatic change There is loss of disc height at L4-5, L5-S1 with associated vacuum phenomenon, endplate sclerosis is present, similar findings present at L1-2 L1-L2: There is a small posterior disc herniation causing anterior mass effect on the thecal sac. No definite foraminal encroachment or spinal stenosis. L2-L3: Posterior broad-based disc bulge causes minimal anterior mass effect on the thecal sac. No sig nificant spinal stenosis or foraminal encroachment. L3-L4: Posterior disc bulge causes mild anterior mass effect on the thecal sac. No significant spinal stenosis or foraminal encroachment. L4-L5: Posterior extension of endplate disc complex causes anterior mass effect on the thecal sac. Ci rcumferential extension of endplate disc complex results in foraminal encroachment on the right. No s ignificant spinal stenosis. L5-S1: Circumferential extension of endplate disc complex causes bilateral foraminal encroachment, po sterior extension endplate disc complex causes possible contact of the proximal S1 nerve roots, no si gnificant spinal stenosis IMPRESSION: Thoracic burst fracture at T11, unstable, correlate for appropriate mechanism of injury, consider pat hologic fracture. Degenerative disc disease, spinal curvature.
[2019-11-25] MEDS ORDERED: NALOXONE 0.4 MG/ML 1 ML VIAL IV PRN (15:06)
[2019-11-25 16:02] LABS: Amorphous Sediment,Urine Rare /hpf; Appearance,Urine Cloudy (Clear); Bacteria,Urine Occasional /hpf; Bilirubin,Urine Negative (Negative); Blood,Urine Small (Negative); Color,Urine Yellow; Glucose,Urine (UA) Negative (Negative); Ketones,Urine 1+ (Negative); Leukocyte Esterase,Urine Large (Negative); Mucus,Urine Few /hpf; Nitrite,Urine Negative (Negative); PH, Urine 5.5 (5.0-8.0); Protein,Urine 1+ (Negative); RBC,Urine 7 /hpf (0-5); Specific Gravity,Urine 1.025 (1.001-1.035); Squamous Epithelial Cell,Urine 20 /hpf (0-4); Urobilinogen,Urine <2.0 mg/dL (<2.0); WBC,Urine 7 /hpf (0-5)
[2019-11-25] MEDS: HYDROmorphone 1 MG/ML 1 ML SYRINGE IVP PRN ×2 (16:11→21:09)
[2019-11-25 16:12] LABS: Basophils % (A) 0 %; Eosinophils # (A) 0.2 k/uL (0-0.7); Eosinophils % (A) 3 %; HCT 34.2 % (34.0-46.0); HGB 11.3 gm/dL (11.4-16.0); Hypochromasia Slight; INR 1.1 (<1.2); Lymphocytes # (A) 1.2 k/uL (1.0-4.8); Lymphocytes % (A) 19 %; MCH 28.4 pg (25.0-35.0); Mean Platelet Volume 6.5; Monocytes # (A) 0.3 k/uL (0-1.0); Monocytes % (A) 5 %; Neutrophils # (A) 4.7 k/uL (1.3-7.7); Neutrophils % (A) 72 %; Partial Thromboplastin Time 26.6 sec (22.0-30.0); Platelet Count 333 k/uL (150-450); Prothrombin Time 11.1 sec (9.0-12.0); RBC 3.97 m/uL (3.80-5.40); WBC 6.5 k/uL (3.8-10.6)
[2019-11-25] MEDS: SODIUM CHLORIDE 0.9% 1,000 ML IV SCH (16:12)
[2019-11-25 16:15] LABS: ALT 10 U/L (4-34); AST 19 U/L (14-36); African American GFR (CKD) >90 (>60 ml/min/1.73 sqM); Albumin 3.5 g/dL (3.5-5.0); Alkaline Phosphatase 76 U/L (38-126); Anion Gap 8 mmol/L; Blood Urea Nitrogen 9 mg/dL (7-17); Calcium 8.9 mg/dL (8.4-10.2); Carbon Dioxide 29 mmol/L (22-30); Chloride 98 mmol/L (98-107); Glucose 189 mg/dL (74-99); Non-African American GFR(CKD) >90 (>60 ml/min/1.73 sqM); Potassium 3.9 mmol/L (3.5-5.1); Sodium 135 mmol/L (137-145); Total Bilirubin 0.6 mg/dL (0.2-1.3)
[2019-11-25 16:29] LABS: MCV 86.1 fL (80.0-100.0)
[2019-11-25 17:06] LABS: Glucose,Whole Blood 169 mg/dL (75-99)
[2019-11-25] MEDS ORDERED: ALBUTEROL NEBULIZED 2.5 MG/3 ML INHALATION PRN (18:19)
[2019-11-25] MEDS ORDERED: INSULIN ASPART (NovoLOG) 100 UNIT/ML VIAL SQ PRN (18:19)
[2019-11-25] MEDS ORDERED: ACETAMINOPHEN TAB 325 MG TAB PO PRN (18:30)
--- NOTE | 2019-11-25 18:30 | P.HPIM ---
History of Present Illness H&P Date: 11/25/19 Chief Complaint: Back pain 64-year-old female with PMH of heart failure, diabetes mellitus, obstructive sleep apnea and arthritis presented to the ED for back pain. Patient was initially seen and admitted on October 25 for sepsis related to cellulitis and gram-positive bacteremia. She was also found to be hypoxic that was likely related to her history of obstructive sleep apnea and obesity hypoventilation syndrome. She was discharged with a PICC line to complete 2 weeks of IV antibiotics. Patient reports completing her course of antibiotics. She presented to the ED once again on November 16 after a mechanical fall. Patient reported tripping over an object and her foot slid in front of her. She landed on her buttocks. X-ray at that time showed possible compression fracture and she was discharged home from the ED with bracing. She presents to the ED today for worsening of her back pain. Patient denies any bladder or bowel incontinence. She denies any saddle anesthesia. She denies any headache, lower extremity edema, nausea or vomiting, fever or chills, cough, chest pain, shortness of breath, palpitations. No changes in appetite or weight. She denies any dizziness, numbness/weakness/tingling of the extremities. In the ED, her vital signs were stable except for elevated BP and O2 saturation the low 90s on room air. CBC showed hemoglobin of 11.3. Coagulation panel was negative. CMP showed sodium 135, glucose 189. Urinalysis showed large leukocyte esterase. Review of Systems Pertinent positives and negatives as discussed in HPI, a complete review of systems was performed and all other systems are negative. Past Medical History Past Medical History: Asthma, Heart Failure, Diabetes Mellitus, GERD/Reflux, Osteoarthritis (OA), Pneumonia, Sleep Apnea/CPAP/BIPAP Additional Past Medical History / Comment(s): IDDM type II, neuropathy bilateral feet, chronic wound R foot/walking boot, MOIZ with bipap, narcolepsy, recent pn eumonia, CHF once post op pt states was from fluid overload, back pain, RLS, IBS, sinus problems. History of Any Multi-Drug Resistant Organisms: None Reported Past Surgical History: Cholecystectomy, Heart Catheterization, Hysterectomy, Joint Replacement, Orthopedic Surgery Additional Past Surgical History / Comment(s): L knee arthroscopy, bilateral total knee arthroplasties, reverse R total shoulder, L total shoulder,R foot hammer toe sx, R foot bunionectomy, repair of dislocated 2nd R toe Past Anesthesia/Blood Transfusion Reactions: No Reported Reaction Past Psychological History: Anxiety, Depression Additional Psychological History / Comment(s): Pt resides alone. She is independent. Smoking Status: Never smoker Past Alcohol Use History: Occasional Additional Past Alcohol Use History / Comment(s): Pt states she smoked only on occasions from 1996 until 2018. Past Drug Use History: None Reported - Past Family History Father Family Medical History: COPD Mother Family Medical History: COPD Sister(s) Family Medical History: COPD, Fibromyalgia, Myocardial Infarction (NH), Osteoarthritis (OA) Brother(s) Family Medical History: COPD Medications and Allergies Home Medications Medication Instructions Recorded Confirmed Type ALPRAZolam 1 mg PO DAILY PRN 10/20/16 11/25/19 History DULoxetine HCL [Cymbalta] 120 mg PO HS 10/20/16 11/25/19 History lamoTRIgine 150 mg PO HS 10/20/16 11/25/19 History Albuterol Sulfate [Ventolin HFA] 1 - 2 puff INHALATION RT-Q6H PRN 10/26/19 11/25/19 History Aspirin EC [Ecotrin Low Dose] 81 mg PO HS 10/26/19 11/25/19 History Biotin 5 mg PO HS 10/26/19 11/25/19 History Fluticasone/Vilanterol [Breo 1 puff INHALATION RT-DAILY 10/26/19 11/25/19 History Ellipta 100-25 Mcg Inhaler] Insulin Glargine,Hum.rec.anlog 40 unit SQ HS 10/26/19 11/25/19 History [Lantus Solostar] Losartan Potassium [Cozaar] 25 mg PO HS 10/26/19 11/25/19 History Multivitamins, Thera [Multivitamin 1 tab PO DAILY 10/26/19 11/25/19 History (formulary)] Pramipexole [Mirapex] 1 mg PO HS 10/26/19 11/25/19 History Albuterol Nebulized [Ventolin 2.5 mg INHALATION RT-QID PRN #90 10/31/19 11/25/19 Rx Nebulized] ampul Dextroamphetamine/Amphetamine 60 mg PO DAILY 11/17/19 11/25/19 History [Adderall Xr] Ibuprofen [Motrin] 600 mg PO BID 11/17/19 11/25/19 History Cyclobenzaprine [Flexeril] 5 mg PO TID PRN 11/25/19 11/25/19 History HYDROcodone/APAP 10-325MG [[place] 1 tab PO TID PRN 11/25/19 11/25/19 History 10-325] Insulin Aspart [NovoLOG Flexpen] 8 units SQ TID PRN 11/25/19 11/25/19 History Insulin Aspart [NovoLOG Flexpen] 16 units SQ AC-TID 11/25/19 11/25/19 History Allergies Allergy/AdvReac Type Severity Reaction Status Date / Time metformin AdvReac Intermediate Nausea & Verified 11/25/19 14:13 Vomiting & Diarrhea Physical Exam Vitals: Vital Signs Temp Pulse Pulse Resp BP BP Pulse Ox 11/25/19 17:18 97.6 F 97 18 161/90 93 L 11/25/19 16:38 98 F 85 18 151/78 96 11/25/19 15:28 98 F 85 18 151/78 96 11/25/19 12:18 98.2 F 96 18 146/88 94 L Intake and Output 11/25/19 11/25/19 11/25/19 06:59 14:59 22:59 Other: Weight 136.078 kg 136.078 kg General: [non toxic], [no distress], [appears at stated age] Derm: [warm], [dry] Head: [atraumatic], [normocephalic], [symmetric] Eyes: [EOMI], [no lid lag], [anicteric sclera] Mouth: [no lip lesion], [mucus membranes moist] Cardiovascular: [S1S2 reg], [no murmur], [positive DP pulse bilateral], Lungs: [Decreased breath sounds bilateral], [no rhonchi, no rales] , [no accessory muscle use] Abdominal: [soft], [ nontender to palpation], [no guarding], [no appreciable organomegaly] Ext: [no gross muscle atrophy], [no edema], [no contractures], [tenderness paraspinal muscle lumbar bilaterally with midline tenderness] Neuro: [no focal neuro deficits] Psych: [Alert], [oriented], [appropriate affect] Results CBC & Chem 7: 11/25/19 15:45 11/25/19 15:45 Labs: Abnormal Lab Results - Last 24 Hours (Table) 11/25/19 11/25/19 11/25/19 Range/Units 15:37 15:45 15:45 Hgb 11.3 L (11.4-16.0) gm/dL Sodium 135 L (137-145) mmol/L Glucose 189 H (74-99) mg/dL POC Glucose (mg/dL) (75-99) mg/dL Urine Appearance Cloudy H (Clear) Urine Protein 1+ H (Negative) Urine Ketones 1+ H (Negative) Urine Blood Small H (Negative) Ur Leukocyte Esterase Large H (Negative) Urine RBC 7 H (0-5) /hpf Urine WBC 7 H (0-5) /hpf Ur Squamous Epith Cells 20 H (0-4) /hpf Amorphous Sediment Rare H (None) /hpf Urine Bacteria Occasional H (None) /hpf Urine Mucus Few H (None) /hpf 11/25/19 Range/Units 17:05 Hgb (11.4-16.0) gm/dL Sodium (137-145) mmol/L Glucose (74-99) mg/dL POC Glucose (mg/dL) 169 H (75-99) mg/dL Urine Appearance (Clear) Urine Protein (Negative) Urine Ketones (Negative) Urine Blood (Negative) Ur Leukocyte Esterase (Negative) Urine RBC (0-5) /hpf Urine WBC (0-5) /hpf Ur Squamous Epith Cells (0-4) /hpf Amorphous Sediment (None) /hpf Urine Bacteria (None) /hpf Urine Mucus (None) /hpf Thrombosis Risk Factor Assmnt - Choose All That Apply Each Factor Represents 1 point: Abnormal pulmonary function (COPD) Each Risk Factor Represents 2 Points: Age 61-74 years Thrombosis Risk Factor Assessment Total Risk Factor Score: 3 Thrombosis Risk Factor Assessment Level: Moderate Risk Assessment and Plan Assessment: L4 fracture History of strep bacteremia Chronic respiratory failure UTI Diabetes mellitus Hypertension MOIZ Restless leg syndrome Morbid Obesity with BMI 45.6 CT lumbar spine shows burst fracture L4. Orthopedic surgery has been consulted for further management. PT and OT will be consulted as well. Fall precautions and advance neurochecks will be ordered. Repeat blood culture will be ordered to check for clearance of her bacteremia that was diagnosed during a previous admission. Infectious disease will be consulted for further management. Likely related to MOIZ and obesity hypoventilation syndrome. Continue supplemental O2 per NC to maintain O2 saturation greater than 92%. UA shows small blood and large leukocyte esterase. Plans to start Rocephin while awaiting urine culture. [id number] glucose 169. Continue home dose of insulin. Start regular Accu- Cheks with hypoglycemic precautions. BP 161/90. Restart Losartan. Monitor vitals and adjust medications if necessary. CPAP at bedtime. Restart Mirapex. Patient would benefit from structured weight loss program. DVT prophylaxis: [Heparin] Discussed with: [Patient] Anticipated discharge: [2-3 days] Anticipated discharge place: [Home] A total of [45] minutes was spent on the care of this complex patient more than 50% of the time was spent in counseling and care coordination. Patient names her sister Sandra decision maker if she can't make decisions for herself. Patient would like to be full code.
[2019-11-25 20:09] LABS: Glucose,Whole Blood 176 mg/dL (75-99)
[2019-11-25] MEDS: INSULIN DETEMIR (LEVEMIR) 100 UNIT/ML SYR SQ SCH (20:34)
[2019-11-25] MEDS: ASPIRIN 81 MG PO SCH (21:16)
[2019-11-25] MEDS: HEPARIN SODIUM,PORCINE 5,000 UNIT/ML 1 ML VIAL SQ SCH (21:16)
[2019-11-25] MEDS: DULoxetine HCL 60 MG CAPSULE.DR PO SCH (21:16)
[2019-11-25] MEDS: lamoTRIgine 100 MG TAB PO SCH (21:17)
[2019-11-25] MEDS: LOSARTAN 25 MG TAB PO SCH (21:17)
[2019-11-25] MEDS: PRAMIPEXOLE 1 MG TAB PO SCH (21:17)
[2019-11-26] MEDS: HYDROmorphone 1 MG/ML 1 ML SYRINGE IVP PRN ×6 (00:51→20:07)
[2019-11-26] MEDS: CYCLOBENZAPRINE 5 MG TAB PO PRN ×3 (01:50→21:58)
[2019-11-26] MEDS: HYDROcodone/APAP 10-325MG 1 EACH TAB PO PRN ×3 (03:15→19:07)
[2019-11-26 06:52] LABS: Glucose,Whole Blood 160 mg/dL (75-99)
[2019-11-26] MEDS: INSULIN ASPART (NovoLOG) 100 UNIT/ML VIAL SQ SCH ×3 (08:00→16:45)
[2019-11-26] MEDS: HEPARIN SODIUM,PORCINE 5,000 UNIT/ML 1 ML VIAL SQ SCH ×2 (08:48→21:58)
[2019-11-26] MEDS ORDERED: AMPHETAMINE PO SCH (09:00)
[2019-11-26] MEDS ORDERED: DEXTROAMPHETAMINE PO SCH (09:00)
[2019-11-26 11:24] LABS: Glucose,Whole Blood 85 mg/dL (75-99)
--- NOTE | 2019-11-26 12:14 | XR ---
EXAMINATION TYPE: XR chest 1V portable DATE OF EXAM: 11/26/2019 COMPARISON: Chest x-ray 10/30/2019 HISTORY: Surgical clearance TECHNIQUE: Single frontal view of the chest is obtained. FINDINGS: Patient is rotated and there are bilateral shoulder arthroplasties. Interstitium and centr al vascularity have improved. Lung volumes are lower. Heart size is likely stable may be enlarged. Th ere is no evident pneumothorax or pleural effusion. Exam is expiratory. IMPRESSION: Improvement in volume status, aeration. Rotated exam. No acute abnormalities evident.
--- NOTE | 2019-11-26 15:54 | P.PN ---
Subjective Progress Note Date: 11/26/19 Principal diagnosis: Back pain Patient was seen and examined. No acute events overnight. Patient reports 7 out of 10 lower back pain. She denies any chest pain, shortness of breath or palpitations. No nausea or vomiting. No fever or chills. Condition unchanged from yesterday. Objective - Vital Signs Vital signs: Vital Signs Temp 98.2 F 11/26/19 13:56 Pulse 84 11/26/19 13:56 Resp 18 11/26/19 13:56 BP 119/62 11/26/19 15:37 Pulse Ox 95 11/26/19 13:56 Intake & Output 11/25/19 11/26/19 11/26/19 18:59 06:59 18:59 Intake Total 50 Balance 50 Weight 136.078 kg Intake: Intake, IV Titration 50 Amount cefTRIAXone 1 gm In 50 Sodium Chloride 0.9% 50 ml @ 100 mls/hr IVPB Q24H [facility] Rx#:[id number] Other: Voiding Method Bedside Commode Bedside Commode # Voids 1 3 - Exam General: [non toxic], [no distress], [appears at stated age] Derm: [warm], [dry] Head: [atraumatic], [normocephalic], [symmetric] Eyes: [EOMI], [no lid lag], [anicteric sclera] Mouth: [no lip lesion], [mucus membranes moist] Cardiovascular: [S1S2 reg], [no murmur], [positive DP pulse bilateral], Lungs: [Decreased breath sounds bilateral], [no rhonchi, no rales] , [no accessory muscle use] Abdominal: [soft], [ nontender to palpation], [no guarding], [no appreciable organomegaly] Ext: [no gross muscle atrophy], [no edema], [no contractures], [tenderness paraspinal muscle lumbar bilaterally with midline tenderness] Neuro: [no focal neuro deficits] Psych: [Alert], [oriented], [appropriate affect] - Labs CBC & Chem 7: 11/25/19 15:45 11/25/19 15:45 Labs: Abnormal Lab Results - Last 24 Hours (Table) 11/25/19 11/25/19 11/25/19 Range/Units 15:37 15:45 15:45 Hgb 11.3 L (11.4-16.0) gm/dL Sodium 135 L (137-145) mmol/L Glucose 189 H (74-99) mg/dL POC Glucose (mg/dL) (75-99) mg/dL Urine Appearance Cloudy H (Clear) Urine Protein 1+ H (Negative) Urine Ketones 1+ H (Negative) Urine Blood Small H (Negative) Ur Leukocyte Esterase Large H (Negative) Urine RBC 7 H (0-5) /hpf Urine WBC 7 H (0-5) /hpf Ur Squamous Epith Cells 20 H (0-4) /hpf Amorphous Sediment Rare H (None) /hpf Urine Bacteria Occasional H (None) /hpf Urine Mucus Few H (None) /hpf 11/25/19 11/25/19 11/26/19 Range/Units 17:05 20:08 06:47 Hgb (11.4-16.0) gm/dL Sodium (137-145) mmol/L Glucose (74-99) mg/dL POC Glucose (mg/dL) 169 H 176 H 160 H (75-99) mg/dL Urine Appearance (Clear) Urine Protein (Negative) Urine Ketones (Negative) Urine Blood (Negative) Ur Leukocyte Esterase (Negative) Urine RBC (0-5) /hpf Urine WBC (0-5) /hpf Ur Squamous Epith Cells (0-4) /hpf Amorphous Sediment (None) /hpf Urine Bacteria (None) /hpf Urine Mucus (None) /hpf Microbiology - Last 24 Hours (Table) 11/25/19 15:37 Urine Culture - Preliminary Urine,Voided Assessment and Plan Assessment: T11 fracture History of strep bacteremia Chronic respiratory failure UTI Diabetes mellitus Hypertension MOIZ Restless leg syndrome Morbid Obesity with BMI 45.6 CT lumbar spine shows burst fracture T11. Orthopedic surgery has been consulted for further management. As discussed with nursing, family would like to discuss type of surgery with Dr. Stauffer tomorrow. PT and OT will be consulted as well. Fall precautions and advance neurochecks will be ordered. Repeat blood culture will be ordered to check for clearance of her bacteremia that was diagnosed during a previous admission. Infectious disease will be con sulted for further management. Likely related to MOIZ and obesity hypoventilation syndrome. Continue supplemental O2 per NC to maintain O2 saturation greater than 92%. CPAP as needed at bedtime. UA shows small blood and large leukocyte esterase. Plans to start Rocephin while awaiting urine culture. [id number] glucose 85. Continue home dose of insulin. Start regular Accu- Cheks with hypoglycemic precautions. BP 119/62. Restart Losartan. Monitor vitals and adjust medications if necessary. CPAP at bedtime. Restart Mirapex. Patient would benefit from structured weight loss program. Patient names her sister Sandra decision maker if she can't make decisions for herself. Patient would like to be full code. [Patient admitted for lower back pain showing burst fracture of T11. Orthopedic surgery on board for possible surgical intervention. Repeat blood cultures collected and ID consulted for strep bacteremia diagnosed previous admission. She is pending clinical improvement. Likely DC in 2-3 days.]
[2019-11-26 16:22] LABS: Glucose,Whole Blood 109 mg/dL (75-99)
[2019-11-26] MEDS: SODIUM CHLORIDE 0.9% 1,000 ML IV SCH (16:34)
[2019-11-26 21:17] LABS: Glucose,Whole Blood 127 mg/dL (75-99)
[2019-11-26] MEDS: INSULIN DETEMIR (LEVEMIR) 100 UNIT/ML SYR SQ SCH (21:27)
[2019-11-26] MEDS: ASPIRIN 81 MG PO SCH (21:58)
[2019-11-26] MEDS: lamoTRIgine 100 MG TAB PO SCH (21:58)
[2019-11-26] MEDS: PRAMIPEXOLE 1 MG TAB PO SCH (21:58)
[2019-11-26] MEDS: LOSARTAN 25 MG TAB PO SCH (21:58)
[2019-11-26] MEDS: DULoxetine HCL 60 MG CAPSULE.DR PO SCH (21:59)
[2019-11-26] MEDS: DOCUSATE 100 MG CAP PO SCH (22:10)
--- NOTE | 2019-11-26 23:15 | P.CONS ---
History of Present Illness - Reason for Consult Consult date: 11/26/19 Right diabetic foot wound recent strep bacteremia and clearance for surgery Requesting physician: Linda Babcock - Chief Complaint Worsening back pain x days - History of Present Illness rupinder Wesley is a 64 year female who was recently admitted at this facility with right diabetic foot wound infection with secondary cellulitis and bacteremia patient did have positive blood culture from the wound as well as blood culture with Streptococcus, follow-up blood culture were negative patient did have CT of the right foot that was negative for any abscess or osteomyelitis patient has recently completed her antibiotic therapy and is currently off anybody for almost 2 weeks now patient also have a fall with resulting T11 fracture for the patient has been evaluated in the outpatient setting by spine surgery and the patient did have a back brace patient now presented back to the hospital with worsening mid back pain limiting getting worse for the last few days despite taking her [place] and Flexeril patient describing her pain to be sharp, almost 10 out of 10 and no radiation, patient denies any weakness in lower extremity no bowel or bladder problem, patient did have to wound on her right foot plantar aspect that is currently being treated with Aquacel silver dressing patient denies any pain to the right foot plantar wound and did not have any drainage from it, the patient is afebrile did have a normal white count blood cultures on admission are negative so far , patient did have a CT of the lumbar spine did shows T11 burst fracture unstable for which spine surgery has been consulted and is planning for surgical repair tomorrow infection disease c onsult was requested to clear for surgery from infectious standpoint Review of Systems Positive point has been mentioned in the HPI rest of the systems are negative Past Medical History Past Medical History: Asthma, Heart Failure, Diabetes Mellitus, GERD/Reflux, Osteoarthritis (OA), Pneumonia, Sleep Apnea/CPAP/BIPAP Additional Past Medical History / Comment(s): IDDM type II, neuropathy bilateral feet, chronic wound R foot/walking boot, MOIZ with bipap, narcolepsy, recent pneumonia, CHF once post op pt states was from fluid overload, back pain, RLS, IBS, sinus problems. History of Any Multi-Drug Resistant Organisms: None Reported Past Surgical History: Cholecystectomy, Heart Catheterization, Hysterectomy, Joint Replacement, Orthopedic Surgery Additional Past Surgical History / Comment(s): L knee arthroscopy, bilateral to serg knee arthroplasties, reverse R total shoulder, L total shoulder,R foot hammer toe sx, R foot bunionectomy, repair of dislocated 2nd R toe Past Anesthesia/Blood Transfusion Reactions: No Reported Reaction Past Psychological History: Anxiety, Depression Additional Psychological History / Comment(s): Pt resides alone. She is independent. Smoking Status: Never smoker Past Alcohol Use History: Occasional Additional Past Alcohol Use History / Comment(s): Pt states she smoked only on occasions from 1996 until 2019. Past Drug Use History: None Reported - Past Family History Father Family Medical History: COPD Mother Family Medical History: COPD Sister(s) Family Medical History: COPD, Fibromyalgia, Myocardial Infarction (NH), Osteoarthritis (OA) Brother(s) Family Medical History: COPD Medications and Allergies Home Medications Medication Instructions Recorded Confirmed Type ALPRAZolam 1 mg PO DAILY PRN 10/20/16 11/25/19 History DULoxetine HCL [Cymbalta] 120 mg PO HS 10/20/16 11/25/19 History lamoTRIgine 150 mg PO HS 10/20/16 11/25/19 History Albuterol Sulfate [Ventolin HFA] 1 - 2 puff INHALATION RT-Q6H PRN 10/26/19 11/25/19 History Aspirin EC [Ecotrin Low Dose] 81 mg PO HS 10/26/19 11/25/19 History Biotin 5 mg PO HS 10/26/19 11/25/19 History Fluticasone/Vilanterol [Breo 1 puff INHALATION RT-DAILY 10/26/19 11/25/19 History Ellipta 100-25 Mcg Inhaler] Insulin Glargine,Hum.rec.anlog 40 unit SQ HS 10/26/19 11/25/19 History [Lantus Solostar] Losartan Potassium [Cozaar] 25 mg PO HS 10/26/19 11/25/19 History Multivitamins, Thera [Multivitamin 1 tab PO DAILY 10/26/19 11/25/19 History (formulary)] Pramipexole [Mirapex] 1 mg PO HS 10/26/19 11/25/19 History Albuterol Nebulized [Ventolin 2.5 mg INHALATION RT-QID PRN #90 10/31/19 11/25/19 Rx Nebulized] ampul Dextroamphetamine/Amphetamine 60 mg PO DAILY 11/17/19 11/25/19 History [Adderall Xr] Ibuprofen [Motrin] 600 mg PO BID 11/17/19 11/25/19 History Cyclobenzaprine [Flexeril] 5 mg PO TID PRN 11/25/19 11/25/19 History HYDROcodone/APAP 10-325MG [[place] 1 tab PO TID PRN 11/25/19 11/25/19 History 10-325] Insulin Aspart [NovoLOG Flexpen] 8 units SQ TID PRN 11/25/19 11/25/19 History Insulin Aspart [NovoLOG Flexpen] 16 units SQ AC-TID 11/25/19 11/25/19 History Allergies Allergy/AdvReac Type Severity Reaction Status Date / Time metformin AdvReac Intermediate Nausea & Verified 11/25/19 14:13 Vomiting & Diarrhea Physical Exam Vitals: Vital Signs Temp Pulse Pulse Resp BP BP Pulse Ox 11/26/19 11:38 98.1 F 78 18 118/70 91 L 11/26/19 10:41 18 11/26/19 07:00 98.2 F 82 18 121/71 94 L 11/26/19 03:13 100 126/77 11/26/19 00:49 98.4 F 101 H 18 179/78 93 L 11/25/19 21:12 98 18 158/74 94 L 11/25/19 19:02 98.1 F 98 18 172/79 91 L 11/25/19 17:18 97.6 F 97 18 161/90 93 L 11/25/19 16:38 98 F 85 18 151/78 96 11/25/19 15:28 98 F 85 18 151/78 96 Intake and Output 11/25/19 11/26/19 11/26/19 22:59 06:59 14:59 Intake Total 50 Balance 50 Intake: Intake, IV Titration 50 Amount cefTRIAXone 1 gm In 50 Sodium Chloride 0.9% 50 ml @ 100 mls/hr IVPB Q24H [facility] Rx#:[id number] Other: Voiding Method Bedside Commode Bedside Commode # Voids 1 1 Weight 136.078 kg GENERAL DESCRIPTION: Middle-aged female lying in bed, no distress. No tachypnea or accessory muscle of respiration use. HEENT: Shows Pallor , no scleral icterus. Oral mucous membrane is dry. No pharyngeal erythema or thrush NECK: Trachea central, no thyromegaly. LUNGS: Unlabored breathing. Clear to auscultation anteriorly. No wheeze or crackle. HEART: S1, S2, regular rate and rhythm. No loud murmur ABDOMEN: Soft, no tenderness , guarding or rigidity, no organomegaly EXTREMITIES: Right foot plantar wound 2 with minimal slough tissue surrounding callus no swelling no redness no warmth to the right foot or any drainage SKIN: No rash, no masses palpable. NEUROLOGICAL: The patient is awake, alert, oriented x3, mood and affect normal. Results CBC & Chem 7: 11/25/19 15:45 11/25/19 15:45 Labs: Abnormal Lab Results - Last 24 Hours (Table) 11/25/19 11/25/19 11/25/19 Range/Units 15:37 15:45 15:45 Hgb 11.3 L (11.4-16.0) gm/dL Sodium 135 L (137-145) mmol/L Glucose 189 H (74-99) mg/dL POC Glucose (mg/dL) (75-99) mg/dL Urine Appearance Cloudy H (Clear) Urine Protein 1+ H (Negative) Urine Ketones 1+ H (Negative) Urine Blood Small H (Negative) Ur Leukocyte Esterase Large H (Negative) Urine RBC 7 H (0-5) /hpf Urine WBC 7 H (0-5) /hpf Ur Squamous Epith Cells 20 H (0-4) /hpf Amorphous Sediment Rare H (None) /hpf Urine Bacteria Occasional H (None) /hpf Urine Mucus Few H (None) /hpf 11/25/19 11/25/19 11/26/19 Range/Units 17:05 20:08 06:47 Hgb (11.4-16.0) gm/dL Sodium (137-145) mmol/L Glucose (74-99) mg/dL POC Glucose (mg/dL) 169 H 176 H 160 H (75-99) mg/dL Urine Appearance (Clear) Urine Protein (Negative) Urine Ketones (Negative) Urine Blood (Negative) Ur Leukocyte Esterase (Negative) Urine RBC (0-5) /hpf Urine WBC (0-5) /hpf Ur Squamous Epith Cells (0-4) /hpf Amorphous Sediment (None) /hpf Urine Bacteria (None) /hpf Urine Mucus (None) /hpf Microbiology - Last 24 Hours (Table) 11/25/19 15:37 Urine Culture - Preliminary Urine,Voided Assessment and Plan Assessment: 1- patient with recent right diabetic foot infection and secondary bacteremia from Streptococcus that has been adequately treated patient is currently off antibiotic therapy almost 2 weeks patient with no fever or elevated white count no evidence of any cellulitis of the right foot and blood culture has been negative so far-- clinically do not see any contraindication for her surgery as for his infectious disease standpoint which is needed urgently Because of instability of T11 spine vertebra 2- right diabetic foot wound 2 currently with evidence of any secondary celluli tis (1) Diabetic ulcer of right foot Current Visit: Yes Status: Acute Code(s): E11.621 - TYPE 2 DIABETES MELLITUS WITH FOOT ULCER; L97.519 - NON-PRS CHRONIC ULCER OTH PRT RIGHT FOOT W UNSP SEVERITY SNOMED Code(s): 300474047 Plan: 1- patient will be able to go for surgical repair of her T11 fracture from infectious disease standpoint this was discussed with admitting team which apparently scheduled for tomorrow 2- local wound care to the right foot plantar wound with marie follow up by moist dressing to be changed daily We will follow on clinical condition and cultures to further adjust medication if needed Thank you for this consultation will follow this patient with you Time with Patient: Greater than 30
[2019-11-27] MEDS: HYDROmorphone 1 MG/ML 1 ML SYRINGE IVP PRN ×3 (00:17→08:16)
--- NOTE | 2019-11-27 02:08 | P.CNOR ---
History of Present Illness - [facility] Consult date: 11/26/19 Requesting physician: Jun Davis Consult reason: fracture (T11 burst fracture), low back pain, back pain (Thoracic back pain) History of present illness: Patient is a well known 64-year-old female who was seen and examined in our office approximately 1 week ago for acute thoracic back pain. She is known to have a T11 compression fracture deformity. She originally sustained a fall on 10/24/2019 when she slipped on something at home. She went to the emergency department for further evaluation where she was found to have fever and sepsis. At the time of her discharge she was discharged with a PICC line. She has completed her antibiotic regimen since that time. She was seen and examined in the office last week and was continuing with conservative treatment for her T11 fracture at that time. She has been wearing her TLSO brace. She presented back to the emergency department yesterday, 11/25/2019, after experiencing increased back pain. She states her pain is intolerable. She states she's been dealing with her pain over the past month and would like to discuss further treatment options. She denies any lower extremity weakness or radiculopathy bilaterally. She states she has lower thoracic pain with pain wrapping around her right ribs. She also has some increased lower lumbar pain as well. CT imaging was taken during her admission to the emergency department which is show evidence of a T11 burst fracture. The patient is currently being seen by medicine. Consultation has been placed for infectious disease who is seeing the patient at her previous admission. Patient states at the bedside and she would like to discuss proceeding for surgical intervention at her T11 fracture site. Patient was also previously diagnosed with a UTI. She is currently being seen and examined by medicine further treatment and evaluation for diabetes mellitus, heart failure, urinary tract infection, history of strep bacteremia, hypertension, chronic respiratory failure, and morbid obesity. Patient states she does have a history of bilateral total knee arthroplasty as well as surgery to the bilateral shoulders. Patient is voiding without difficulty. Blood cultures are currently pending. Nursing states medicine will clear the patient for surgery. Past Medical History Past Medical History: Asthma, Heart Failure, Diabetes Mellitus, GERD/Reflux, Osteoarthritis (OA), Pneumonia, Sleep Apnea/CPAP/BIPAP Additional Past Medical History / Comment(s): IDDM type II, neuropathy bilateral feet, chronic wound R foot/walking boot, MOIZ with bipap, narcolepsy, recent pneumonia, CHF once post op pt states was from fluid overload, back pain, RLS, IBS, sinus problems. History of Any Multi-Drug Resistant Organisms: None Reported Past Surgical History: Cholecystectomy, Heart Catheterization, Hysterectomy, Joint Replacement, Orthopedic Surgery Additional Past Surgical History / Comment(s): L knee arthroscopy, bilateral total knee arthroplasties, reverse R total shoulder, L total shoulder,R foot hammer toe sx, R foot bunionectomy, repair of dislocated 2nd R toe Past Anesthesia/Blood Transfusion Reactions: No Reported Reaction Past Psychological History: Anxiety, Depression Additional Psychological History / Comment(s): Pt resides alone. She is independent. Smoking Status: Never smoker Past Alcohol Use History: Occasional Additional Past Alcohol Use History / Comment(s): Pt states she smoked only on occasions from 1996 until 2019. Past Drug Use History: None Reported - Past Family History Father Family Medical History: COPD Mother Family Medical History: COPD Sister(s) Family Medical History: COPD, Fibromyalgia, Myocardial Infarction ([place]), Osteoarthritis (OA) Brother(s) Family Medical History: COPD Medications and Allergies Home Medications Medication Instructions Recorded Confirmed Type ALPRAZolam 1 mg PO DAILY PRN 10/20/16 11/25/19 History DULoxetine HCL [Cymbalta] 120 mg PO HS 10/20/16 11/25/19 History lamoTRIgine 150 mg PO HS 10/20/16 11/25/19 History Albuterol Sulfate [Ventolin HFA] 1 - 2 puff INHALATION RT-Q6H PRN 10/26/19 11/25/19 History Aspirin EC [Ecotrin Low Dose] 81 mg PO HS 10/26/19 11/25/19 History Biotin 5 mg PO HS 10/26/19 11/25/19 History Fluticasone/Vilanterol [Breo 1 puff INHALATION RT-DAILY 10/26/19 11/25/19 History Ellipta 100-25 Mcg Inhaler] Insulin Glargine,Hum.rec.anlog 40 unit SQ HS 10/26/19 11/25/19 History [Lantus Solostar] Losartan Potassium [Cozaar] 25 mg PO HS 10/26/19 11/25/19 History Multivitamins, Thera [Multivitamin 1 tab PO DAILY 10/26/19 11/25/19 History (formulary)] Pramipexole [Mirapex] 1 mg PO HS 10/26/19 11/25/19 History Albuterol Nebulized [Ventolin 2.5 mg INHALATION RT-QID PRN #90 10/31/19 11/25/19 Rx Nebulized] ampul Dextroamphetamine/Amphetamine 60 mg PO DAILY 11/17/19 11/25/19 History [Adderall Xr] Ibuprofen [Motrin] 600 mg PO BID 11/17/19 11/25/19 History Cyclobenzaprine [Flexeril] 5 mg PO TID PRN 11/25/19 11/25/19 History HYDROcodone/APAP 10-325MG [[place] 1 tab PO TID PRN 11/25/19 11/25/19 History 10-325] Insulin Aspart [NovoLOG Flexpen] 8 units SQ TID PRN 11/25/19 11/25/19 History Insulin Aspart [NovoLOG Flexpen] 16 units SQ AC-TID 11/25/19 11/25/19 History Allergies Allergy/AdvReac Type Severity Reaction Status Date / Time metformin AdvReac Intermediate Nausea & Verified 11/25/19 14:13 Vomiting & Diarrhea Physical Examination Physical exam: Patient is awake, alert, and oriented 3 Vital signs stable Good chest excursion with deep inspiration and expiration Abdomen soft nontender Examination of thoracic and lumbar spine reveals skin is intact with no abrasions, lacerations, or bruises; no erythema, purulence or signs of infection Pain is pain with palpation along the midline at the thoracolumbar junction and also at the lower lumbar spine Dorsiflexion, plantarflexion, and extensor hallucis longus positive sustained bilaterally Lower extremity strength 5/5 bilaterally Evidence of well-healed incisions over the bilateral knees Straight leg test negative bilateral lower extremities No signs or symptoms of DVT; no calf pain No pain with internal and external rotation of the hips bilaterally Neurovascularly intact Results Pertinent studies: CT of the lumbar spine taken on 11/25/2019: Evidence of T11 burst fracture without significant retropulsion and no obvious evidence of significant spinal canal stenosis at this level; L1-2 significant degenerative disc disease; L4-5 degenerative disc disease and circumferential extension of endplate and disc complex resulting in neural foraminal encroachment; L5-S1 degenerative disc disease circumferential extension of the endplate resulting in bilateral foraminal encroachment with some possible contact to the proximal S1 nerves; no significant stenosis evident through the lumbar spine; spinal curvature - Labs Labs: Abnormal Lab Results - Last 24 Hours (Table) 11/25/19 11/26/19 11/26/19 Range/Units 20:08 06:47 16:19 POC Glucose (mg/dL) 176 H 160 H 109 H (75-99) mg/dL Microbiology - Last 24 Hours (Table) 11/25/19 15:37 Urine Culture - Preliminary Urine,Voided H & H 11/25/19 Range/Units 15:45 Hgb 11.3 L (11.4-16.0) gm/dL Hct 34.2 (34.0-46.0) % Coagulation 11/25/19 Range/Units 15:45 INR 1.1 (<1.2) Result Diagrams: 11/25/19 15:45 11/25/19 15:45 Assessment and Plan Assessment: Assessment: T11 burst fracture status post fall on 10/24/2019 Thoracic back pain Low back pain Lumbar degenerative changes at L1-2, L4-5, and L5-S1 History of strep bacteremia Chronic respiratory failure UTI Diabetes mellitus Hypertension Morbid obesity with a BMI of 45.6 (1) Status post fall Current Visit: Yes Status: Acute Code(s): Z91.81 - HISTORY OF FALLING SNOMED Code(s): 002313893 (2) Thoracic back pain Current Visit: Yes Status: Acute Code(s): M54.6 - PAIN IN THORACIC SPINE SNOMED Code(s): 277346658 (3) Lumbar pain Current Visit: Yes Status: Acute Code(s): M54.5 - LOW BACK PAIN SNOMED Code(s): 030003044 (4) History of sepsis Current Visit: Yes Status: Acute Code(s): Z86.19 - PERSONAL HISTORY OF OTHER INFECTIOUS AND PARASITIC DISEASES SNOMED Code(s): 730262365799581 (5) UTI (urinary tract infection) Current Visit: Yes Status: Acute Code(s): N39.0 - URINARY TRACT INFECTION, SITE NOT SPECIFIED SNOMED Code(s): 26507829 (6) Morbid obesity with BMI of 45.0-49.9, adult Current Visit: Yes Status: Acute Code(s): E66.01 - MORBID (SEVERE) OBESITY DUE TO EXCESS CALORIES; Z68.42 - BODY MASS INDEX (BMI) 45.0-49.9, ADULT SNOMED Code(s): 080544777 (7) Burst fracture of thoracic vertebra Current Visit: Yes Status: Acute Code(s): S22.001A - STABLE BURST FRACTURE OF UNSP THORACIC VERTEBRA, INIT SNOMED Code(s): 182211961 (8) Compression fracture of T11 vertebra Current Visit: No Status: Acute Code(s): S22.080A - WEDGE COMPRESSION FRACTURE OF T11-T12 VERTEBRA, INIT SNOMED Code(s): 624679488 (9) Diabetes mellitus Current Visit: Yes Status: Acute Code(s): E11.9 - TYPE 2 DIABETES MELLITUS WITHOUT COMPLICATIONS SNOMED Code(s): 62264914 (10) Hypertension Current Visit: Yes Status: Acute Code(s): I10 - ESSENTIAL (PRIMARY) HYPERTENSION SNOMED Code(s): 72351945 Plan: Plan: 1. Patient has been discussed in detail with Dr. Brian Stauffer. Imaging has been reviewed by myself and Dr. Brian Stauffer. Patient has been working to conservative treatment since her fall on 10/24/2019 without any significant improvement of her thoracic back pain. Patient was unable to discuss further invasive treatment options previously due to her sepsis. She was recently discharged home with a PICC line and completed an antibiotic regimen. Patient presented back to the emergency department yesterday, 11/26/2019, with further difficulties with pain control with her fracture site at T11. CT imaging was taken at this time which further detailed her known T11 compression fracture deformity. Patient continues to deny any lower extremity weakness or radiculopathy bilaterally. She is not having any difficulty with urination. She is not experiencing any neurological change. Her pain is specific to her thoracic spine near the thoracolumbar junction and in her lower lumbar spine. Given her significant pain and difficulty of pain control as well as significant findings on CT imaging, we discussed the patient is a candidate for surgical intervention at her thoracic spine. We did discuss that surgical intervention at ther thoracic spine would not alleviate her lower lumbar pain. We discussed we also feel the patient is failing conservative treatment options and could benefit from further treatment at her thoracic spine. We discussed the proposed surgical intervention would be a T11 kyphoplasty with biopsy. Patient states she would like to proceed forward with this or postsurgical intervention if she is able to be cleared by medicine and infectious disease. Plan of care will also be discussed with the patient's family prior to surgical intervention per the patient's request. Patient will become NPO at midnight, 11/27/2019, in anticipation of surgical intervention. I discussed these issues with the patient at length and I answered all of their questions to the best of my ability and the patient understands. I discussed the risk of surgical intervention and alternative treatment options. The risk of surgical intervention was explained to the patient in detail including but not limited to risk of bleeding, risk of infection, risk and need for further surgery, risk of decreased loss of motion of function, malunion, nonunion, hardware failure, nerve damage, paralysis, heart attack, , as well as the fact that surgery may not alleviate her symptoms. I answered all the patient's questions the best of my ability. The patient would like to proceed forward with surgical intervention and will sign informed consent. 2. Patient will continue to be seen and examined by medicine and infectious disease. Time with Patient: Greater than 30 (Including obtaining history, physical examination, reviewing of imaging, and dictation.)
[2019-11-27 07:09] LABS: Glucose,Whole Blood 155 mg/dL (75-99)
[2019-11-27] MEDS: INSULIN ASPART (NovoLOG) 100 UNIT/ML VIAL SQ SCH ×3 (07:11→17:48)
--- NOTE | 2019-11-27 09:33 | P.PN ---
Progress Note - Text Progress Note Date: 11/27/19 The patient is seen and examined at bedside. I reviewed the case images and the prior consultation with Sanchez Gallo. I'm in agreement with that. The patient continues have pain at her lower back. She has to copiously with mobilization and ambulation. Her lower extremities have sustained dorsal flexion plantar flexion and EHL intact. We've been able to follow patient up as outpatient in here in Hospital. She has been having some worsening pain at her fracture sided lumbar spine at spinal fracture. this seems to be the primary source of her symptoms and I think that she can have benefit with kyphoplasty stabilization at that level. She has not been able have any benefit with bracing and activity modification. And could do well with that area stabilized that she can start to mobilize better and her pain control. I talked with Dr. Mary at bedside as well and she seems to be sy mptom free and free of her bacteremia and sepsis. We will go ahead and take a biopsy and culture of the vertebrae at the time of surgery to be followed closely. I again discussed with her the risks, occasions alternatives and benefits of the surgical procedure. I answered questions best my ability healing she can understand and she is agreeable procedure. She'll remain nothing by mouth and plan for surgery today.
[2019-11-27] MEDS: HEPARIN SODIUM,PORCINE 5,000 UNIT/ML 1 ML VIAL SQ SCH ×2 (10:25→21:23)
[2019-11-27] MEDS: DOCUSATE 100 MG CAP PO SCH ×2 (10:26→21:23)
[2019-11-27 11:29] LABS: Glucose,Whole Blood 176 mg/dL (75-99)
[2019-11-27] MEDS ORDERED: ALPRAZolam 0.5 MG TAB PO PRN (12:23)
--- NOTE | 2019-11-27 12:23 | P.PN ---
Subjective Progress Note Date: 11/27/19 Objective - Vital Signs Vital signs: Vital Signs Temp 98.7 F 11/27/19 09:57 Pulse 93 11/27/19 09:57 Resp 22 11/27/19 09:57 BP 179/96 11/27/19 09:57 Pulse Ox 96 11/27/19 09:57 Intake & Output 11/26/19 11/27/19 11/27/19 18:59 06:59 18:59 Intake Total 160 Balance 160 Intake: Intake, IV Titration 160 Amount Sodium Chloride 0.9% 1, 160 000 ml @ 20 mls/hr IV . Q24H COUNT INCLUDES THE [facility] Rx#:[id number] Other: Voiding Method Bedside Commode # Voids 3 1 # Bowel Movements 1 - Exam Constitutional: No acute distress, conversant, pleasant Eyes: Anicteric sclerae, moist conjunctiva, no lid-lag, PERRLA ENMT: NC/AT Neck:Supple, FROM, no masses, or JVD, Lungs: Clear to auscultation, Clear to percussion, Normal respiratory effort, no accessory muscle use Cardiovascular: Heart regular in rate and rhythm, No murmurs, gallops, or rubs no peripheral edema Abdominal: Soft Nontender, nom distended, no guarding, no rebound or rigidity, Normoactive bowel sounds No hepatomegaly, No splenomegaly, No palpable mass No abdominal wall hernia noted , obese. Skin: Normal temperature, tone, texture, turgor, No induration No subcutaneous nodules, No rash, lesions, No ulcers Extremities:No digital cyanosis No clubbing, Pedal pulses intact and symmetrical Radial pulses intact and symmetrical Normal gait and station, No calf tenderness Psychiatric: Alert and oriented to person, place and time, Appropriate affect In tact judgement Neuro: Muscles Strength 5/5 in all 4 extremities, Sensation to light touch grossly present throughout, Cranial nerves II-XII grossly intact. No focal sensory deficits - Labs CBC & Chem 7: 11/25/19 15:45 11/25/19 15:45 Labs: Abnormal Lab Results - Last 24 Hours (Table) 11/26/19 11/26/19 11/27/19 Range/Units 16:19 21:16 07:07 POC Glucose (mg/dL) 109 H 127 H 155 H (75-99) mg/dL 11/27/19 Range/Units 11:27 POC Glucose (mg/dL) 176 H (75-99) mg/dL Microbiology - Last 24 Hours (Table) 11/25/19 15:37 Urine Culture - Preliminary Urine,Voided Gram Neg Bacilli 11/25/19 15:45 Blood Culture - Preliminary Blood No Growth after 24 hours Assessment and Plan Plan: T11 fracture: CT lumbar spine shows burst fracture T11. Orthopedic surgery has been consulted for further management.Plan for kyphoplasty today, pain control as indicated. History of strep bacteremia and recent diabetic foot ulcer: Infectious disease consulted for further management, input appreciated.. Chronic respiratory failure Likely related to MOIZ and obesity hypoventilation syndrome. Continue supplemental O2 per NC to maintain O2 saturation greater than 92%. CPAP as needed at bedtime. UTI, acute unspecified organism: Continue IV Rocephin, pending cultures, gram- negative bacilli. Diabetes mellitus type II with hyperglycemia: Continue insulin sliding scale Hypertension, essential, continue losartan MOIZ: Continue CPAP Restless leg syndrome: Continue Mirapex Morbid Obesity with BMI 45.6 Anxiety: Anxiolytics as indicated Disposition: Pending clinical progression
[2019-11-27] MEDS ORDERED: LACTATED RINGERS 1,000 ML IV ONE (14:00)
[2019-11-27 14:06] LABS: Glucose,Whole Blood 178 mg/dL (75-99)
[2019-11-27] MEDS ORDERED: ALBUTEROL NEBULIZED 2.5 MG/3 ML INHALATION PRN (14:15)
[2019-11-27] MEDS ORDERED: MIDAZOLAM 2 MG/2 ML VIAL IVP ONE (14:45)
[2019-11-27] MEDS ORDERED: LIDOCAINE 1% INJ 10MG/ML (20 ML MDV) ONE (15:29)
[2019-11-27] MEDS ORDERED: PROPOFOL 10 MG/ML 20 ML VIAL IV ONE (15:29)
[2019-11-27] MEDS ORDERED: SUCCINYLCHOLINE CHLORIDE 100 MG/5 ML SYR IV ONE (15:29)
[2019-11-27] MEDS ORDERED: fentaNYL (PF) 50 MCG/ML 2 ML AMP ONE (15:29)
[2019-11-27] MEDS ORDERED: PHENYLEPHRINE-0.9% NACL SYG 1 MG/10 ML SYRINGE ONE (15:29)
[2019-11-27] MEDS: SODIUM CHLORIDE 0.9% 1,000 ML IV SCH ×2 (15:42→16:59)
[2019-11-27] MEDS ORDERED: BUPIVACAINE (PF) 0.5% 30 ML VIAL SQ ONE ×2 (16:04)
[2019-11-27] MEDS ORDERED: VANCOMYCIN 1,000 MG VIAL MISCELLANE ONE (16:05)
[2019-11-27] MEDS ORDERED: BENZOCAINE/MENTHOL LOZENG 1 EACH LOZENGE MUCOUS MEM PRN (16:33)
[2019-11-27] MEDS ORDERED: HYDROmorphone 0.5 MG/0.5 ML SYRINGE IVP PRN (16:33)
[2019-11-27] MEDS ORDERED: HYDROmorphone 1 MG/ML 1 ML SYRINGE IVP PRN (16:33)
[2019-11-27] MEDS ORDERED: HYDROcodone/APAP 5-325MG 1 EACH TAB PO PRN (16:34)
--- NOTE | 2019-11-27 16:43 | P.OP ---
Date of Procedure: 11/27/19 Preoperative Diagnosis: T11 burst fracture Thoracolumbar back pain Failed conservative treatment Postoperative Diagnosis: Same Anesthesia: GETA Pathology: other (T 11 biopsy and aspiration blood culture sent to pathology and microbiology) Condition: stable Disposition: PACU Description of Procedure: BRIEF OPERATIVE NOTE Preoperative Diagnosis: T11 burst fracture Thoracolumbar back pain Failed conservative treatment Postoperative Diagnosis: Same Procedure: Kyphoplasty of T11 Vertebral body biopsy and aspiration of T11 sent to pathology and microbiology Use of biplanar fluoroscopic guidance Surgeon: Dr. Stauffer Recruiting Team Lead: None Anesthesia: General anesthesia per Dr. Makeda marcial Estimated blood loss: Less than 10 mL Specimen: Vertebral body biopsy sent to pathology in formalin and cultures sent to microbiologyComplications: None apparent Components implanted: Bone cement, approximately 7 mL Disposition: To recovery room in good stable condition. OPERATIVE INDICATIONS The patient has been having issues in their back ever since sustaining an injury. The patient has been through conservative treatment. They attempted conservative care with bracing however they're not having any benefit despite brace use. They continue to have significant pain and debility due to their fracture. She had a burst component to T11 vertebral body where the fracture was noted. She had a number of other medical issues including an ulcer on her foot and bacteremia with sepsis. She had been treated over the past month long- term IV antibiotics and had cleared her infectious process. Over the past 2 weeks she has been off her antibiotics and doing well without any evidence of infection. She is still having severe pain in her back with evidence of an unstable burst fracture at T11 which seem to be the primary source of her back symptoms. She does have a number of degenerative changes at her lumbar spine back as well, and this may have had some exacerbation but that the T11 fracture was primary source. We discussed case with infectious disease who felt that she was cleared for surgical intervention and she had medical clearance as well. Infectious disease requested biopsy and culture of the vertebral body at the time surgery. We discussed various treatment options including surgery, and the patient wishes to proceed with surgery We discussed the risk, patient's alternatives and benefits of surgery including but not limited to, risk of bleeding risk of infection, risk of need for further surgery, risk of decreased, loss of motion, loss of function, cement extravasation, nerve damage, paralysis, heart attack, blindness and . OPERATIVE SUMMARY After discussing all the risks, patient alternatives and benefits at length, the patient elected to proceed with surgical intervention, signed informed consent, and presented for their procedure. The patient was seen and examined in the preoperative holding area and the surgical site was marked. The patient was given antibiotics and brought to the operating room. The patient was sedated and intubated by anesthesia in standard fashion. The patient was positioned on to the operating room table in a prone position on the appropriate well-padded and well molded bilateral chest rolls. We were careful to pad any bony prominences and pressure points. We were careful to maintain the patient's cervical spine and good neutral alignment and position throughout. We used 2 C-arm machines to establish biplanar fluoroscopic guidance in AP and lateral positions. We were able to localize the fractures appropriately. The patient was prepped and draped in a normal standard fashion. An appropriate timeout and keystone protocol performed. We were able to proceed with the surgery. The local wound area was infiltrated with local anesthetic. An incision was made over the lateral aspect of the pedicle over the appropriate levels of [id number] a small 2 mm stab incision on the right . Intraoperative fluoroscopy was taken which showed a marker at the appropriate level. With the appropriate level positively confirmed, I was able to position a sharp trocar over the lateral aspect of the pedicle. As able to advance the trocar into the pedicle and into the posterior aspect of vertebral body being careful to avoid penetration cephalad caudad or medially. The trocar was placed appropriately into the posterior aspect of vertebral body at the appropriate levels of T11 near the anterior midline . This was confirmed with C-arm guidance. The bone itself was quite soft. There is no significant resistance within the vertebral body itself to placement of the trocar. With the trocar intact I was then able to take a bone biopsy with a biopsy punch or a bony drill. The biopsy specimen was passed off to be sent to pathology in formalin. I was then able to place the kyphoplasty balloon within the vertebral body. The position was checked on C-arm. I was able to inflate the balloon under low pressure and visualization with C-arm. The balloon was inflated to approximately 2 half cc with essentially little to no pressure. The balloon was well enclosed within the vertebral body. The cement was prepared. With the cement at appropriate working condition the balloons were deflated and removed. I was able to place bony cement with trocar with the cement delivery device under low pressure. It had good fill within the vertebral body. There is fill throughout the vertebral body expanding within the fernandez of the vertebral body to possibly 7 mL under very low pressure. There is no evidence of any extravasation of the cement posteriorly toward the canal. The cement was well contained at the appropriate levels. The cement was allowed to cure appropriately. The trochars removed and final images were taken on C-arm. This showed the cement at the appropriate levels at T11 . We were able to proceed with closure. The wound was cleaned and dried and dressed with the appropriate dressing. The drapes were broken down. The patient was gently rolled back onto their hospital bed being careful to maintain their cervical spine and good neutral alignment and position. They were woken up by anesthesia, extubated, and brought to the recovery room in good stable condition. The patient will be admitted to the hospital for observation and for appropriate postoperative care, medical management and monitoring. She is okay to start to mobilize weightbearing as tolerated in terms of her spine. Hopefully she'll be able to be discharged home tomorrow she is cleared with medicine. We will continue to follow them closely about the postoperative course.
[2019-11-27 16:48] VITALS: RESP 20
--- NOTE | 2019-11-27 17:24 | PN ---
PROGRESS NOTE DATE OF SERVICE: 11/27/2019 REASON FOR FOLLOWUP: 1. Right diabetic foot wound. 2. T11 fracture. INTERVAL HISTORY: The patient was seen on rounds this morning. The patient's overall pain and discomfort to the upper mid back is currently controlled with pain medication. The patient denies having any chest pain or shortness of breath or cough. No abdominal pain or diarrhea. PHYSICAL EXAMINATION: Blood pressure 156/75 with a pulse of 94, temperature 97.9. She is 94% on 2 L nasal cannula. General description is a middle-aged female up in the chair in no distress. RESPIRATORY SYSTEM: Unlabored breathing. Clear to auscultation anteriorly. HEART: S1, S2. Regular rate and rhythm. ABDOMEN: Soft. No tenderness. LABS: Blood culture has been negative so far. DIAGNOSTIC IMPRESSION AND PLAN: 1. Patient with a right diabetic foot wound with a previous episode of cellulitis and bacteremia that has been adequately treated. The patient is currently off antibiotic for almost 2 weeks, with no recurrence of any fever. Culture negative. White count normal. Local wound care to continue with Medihoney followed by moist dressing. 2. Patient with T11 fracture, possibly traumatic. Cultures and biopsy will be obtained as per discussion with the spine surgeon at the time of surgery today. MMODL / IJN: [id number] /
[2019-11-27 17:40] LABS: Glucose,Whole Blood 164 mg/dL (75-99)
[2019-11-27 20:22] LABS: Glucose,Whole Blood 131 mg/dL (75-99)
[2019-11-27] MEDS: lamoTRIgine 100 MG TAB PO SCH (21:00)
[2019-11-27] MEDS: INSULIN DETEMIR (LEVEMIR) 100 UNIT/ML SYR SQ SCH (21:21)
[2019-11-27] MEDS: PRAMIPEXOLE 1 MG TAB PO SCH (21:22)
[2019-11-27] MEDS: ASPIRIN 81 MG PO SCH (21:22)
[2019-11-27] MEDS: LOSARTAN 25 MG TAB PO SCH (21:23)
[2019-11-27] MEDS: DULoxetine HCL 60 MG CAPSULE.DR PO SCH (21:23)
[2019-11-27] MEDS: HYDROcodone/APAP 5-325MG 1 EACH TAB PO PRN (21:32)
[2019-11-28] MEDS: HYDROcodone/APAP 5-325MG 1 EACH TAB PO PRN ×3 (04:50→13:45)
[2019-11-28] MEDS: SODIUM CHLORIDE 0.9% 1,000 ML IV SCH ×2 (06:08→15:48)
--- NOTE | 2019-11-28 07:11 | FL ---
Fluoroscopy History: T11 KYPHOPLASTY 4 images-46 sec fl
[2019-11-28] MEDS: INSULIN ASPART (NovoLOG) 100 UNIT/ML VIAL SQ SCH ×2 (07:22→11:40)
[2019-11-28 07:27] LABS: Glucose,Whole Blood 133 mg/dL (75-99)
[2019-11-28 08:52] LABS: Basophils % (A) 0 %; Eosinophils # (A) 0.3 k/uL (0-0.7); Eosinophils % (A) 4 %; HCT 34.4 % (34.0-46.0); HGB 10.7 gm/dL (11.4-16.0); Hypochromasia Slight; Lymphocytes # (A) 1.2 k/uL (1.0-4.8); Lymphocytes % (A) 17 %; MCH 27.2 pg (25.0-35.0); MCHC 31.2 g/dL (31.0-37.0); MCV 87.1 fL (80.0-100.0); Monocytes # (A) 0.4 k/uL (0-1.0); Monocytes % (A) 6 %; Neutrophils # (A) 4.8 k/uL (1.3-7.7); Neutrophils % (A) 71 %; Platelet Count 391 k/uL (150-450); RBC 3.95 m/uL (3.80-5.40); RDW 14.5 % (11.5-15.5); WBC 6.9 k/uL (3.8-10.6)
[2019-11-28] MEDS ORDERED: MULTIVITAMINS, THERA 1 EACH TAB PO SCH (09:00)
[2019-11-28 09:21] LABS: ALT 12 U/L (4-34); AST 22 U/L (14-36); African American GFR (CKD) >90 (>60 ml/min/1.73 sqM); Albumin 3.3 g/dL (3.5-5.0); Alkaline Phosphatase 73 U/L (38-126); Anion Gap 6 mmol/L; Blood Urea Nitrogen 9 mg/dL (7-17); Calcium 8.6 mg/dL (8.4-10.2); Carbon Dioxide 29 mmol/L (22-30); Chloride 100 mmol/L (98-107); Glucose 179 mg/dL (74-99); Non-African American GFR(CKD) 85 (>60 ml/min/1.73 sqM); Potassium 4.1 mmol/L (3.5-5.1); Sodium 135 mmol/L (137-145); Total Bilirubin 0.4 mg/dL (0.2-1.3); Total Protein 6.7 g/dL (6.3-8.2)
[2019-11-28] MEDS: HEPARIN SODIUM,PORCINE 5,000 UNIT/ML 1 ML VIAL SQ SCH (09:37)
[2019-11-28] MEDS: CYCLOBENZAPRINE 5 MG TAB PO PRN (09:37)
[2019-11-28] MEDS: DOCUSATE 100 MG CAP PO SCH (09:40)
--- NOTE | 2019-11-28 09:41 | P.PN ---
Progress Note - Text Progress Note Date: 11/28/19 Orthopedic Spine: History of present illness: Patient is a pleasant 64-year-old female who is seen at the bedside following T11 kyphoplasty with biopsy performed yesterday. Patient states they are doing well postsurgically. She was having significant thoracic back pain prior to surgical intervention and feels her thoracic pain is significantly improved. She has been able to ambulate without significant difficulty. She has not been wearing her TLSO brace postoperatively. She does have some chronic low back pain. She was seen by medicine this morning and states she is cleared for discharge home today. She is happy with her progress postoperatively. Currently does not complain of nausea, vomiting, fever, or chills. Patient states pain has been adequately controlled. Patient is eating and voiding freely without difficulty. Physical Exam: Status post surgical day number 1 Patient is awake, alert, and oriented 3 Vital signs stable Good chest excursion with deep inspiration and expiration Examination of thoracic and lumbar spine reveals skin is intact with no abrasions, lacerations, or bruises; no erythema, purulence or signs of infection Evidence of a healing incision on the right of the lower thoracic spine No significant pain with palpation along the midline at the thoracolumbar junction and also at the lower lumbar spine Dorsiflexion, plantarflexion, and extensor hallucis longus positive sustained bilaterally Lower extremity strength 5/5 bilaterally Evidence of well-healed incisions over the bilateral knees Straight leg test negative bilateral lower extremities No signs or symptoms of DVT; no calf pain No pain with internal and external rotation of the hips bilaterally Neurovascularly intact Assessment: Status post T11 kyphoplasty and biopsy performed on 11/27/2023 T11 burst fracture status post fall Low back pain Lumbar degenerative changes at L1-2, L4-5, and L5-S1 History of strep bacteremia Chronic respiratory failure UTI Diabetes mellitus Hypertension Morbid obesity with a BMI of 45.6 Plan: 1. Ambulate as tolerated 2. Continue Pain control with oral medications as prescribed as needed 3. Medical management can continue to manage patient for patient's other medical diagnosis 4. Patient is continue to improve postoperatively following T11 kyphoplasty and biopsy for her T11 burst fracture. Her pain is well-controlled. She'shere lowe r extremity weakness and radiculopathy bilaterally. From an orthopedic spine standpoint, patient is clear for discharge. She is cleared for discharge home today once cleared by medicine and infectious disease. We will plan to have the patient follow up in approximately 2 weeks for further evaluation in the outpatient setting with Sanchez Castro PA-C or Dr. Brian Stauffer at [facility]. We discussed patient should avoid this as bending, twisting, lifting; no lifting greater than 10 pounds.
[2019-11-28 11:37] LABS: Glucose,Whole Blood 96 mg/dL (75-99)
--- NOTE | 2019-11-28 14:12 | PN ---
PROGRESS NOTE DATE OF SERVICE: 11/28/2019 REASON FOR FOLLOWUP: 1. Right diabetic foot wound. 2. Positive urine culture. INTERVAL HISTORY: The patient is currently afebrile, patient is breathing comfortably. The patient denies having any chest pain, no shortness of breath or cough. All upper back pain is currently controlled. No nausea, no vomiting. No pain in the right foot. PHYSICAL EXAMINATION: Blood pressure 130/75, pulse 80, temperature 98. She is 96% on room air. General description is a middle-aged female,. up in the bed in no distress. RESPIRATORY SYSTEM: Unlabored breathing, clear to auscultation anteriorly. HEART: S1, S2. Regular rate and rhythm. ABDOMEN: Soft, no tenderness. Right foot wound is currently dressed. No obvious drainage on the dressing. LABS: Hemoglobin is 10.1, white count of 6.9, BUN of 10, creatinine 0.76. DIAGNOSTIC IMPRESSION: Patient with right diabetic foot wound. PLAN: 1. Local care to continue with Medihoney followed by moist dressing and mild Benitez wrap. 2. Positive urine culture with drug-resistant E coli, possible colonization as the patient is currently not have any urinary symptoms. No need for any systemic antibiotic therapy. MMODL / IJN: [id number] /
--- NOTE | 2019-11-28 14:26 | P.DS ---
Providers Date of admission: 11/25/19 15:06 Expected date of discharge: 11/28/19 Attending physician: iLnda Babcock MD Consults: 11/25/19 15:06 Consult Physician Urgent Consulting Provider: Uriel Mary Consult Reason/Comments: Clear for surgery Do you want consulting provider notified?: Yes 11/25/19 15:07 Consult Physician Urgent Consulting Provider: Julien Stauffer Consult Reason/Comments: Burst fracture Do you want consulting provider notified?: Already Contacted Primary care physician: Román Head [facility] Course: Discharge Diagnosis: T 11 compression fracture failed conservative therapy UTI ruled out DM 2 with hyperglycemia HTN MOIZ with CPAP Diabetic ulcer right foot-medihoney and moist dressing change daily Obesity with BMI 45.6 Hospital Course: Patient is a 64-year-old female past medical history of heart failure, diabetes, obstructive sleep apnea, arthritis, and recent bacteremia who presented to the ER for back pain. She was recently hospitalized here from through 10/30 for infected diabetic wound associated with bacteremia. She has since completed her IV antibiotics for bacteremia. She then presented to the emergency department on 11/16 after a fall. At that point in time was treated with bracing. She had followed up with orthopedic surgery in the outpatient setting area did she then presented to the ER due to acute worsening of her back pain. She underwent a CT lumbar spine that showed a thoracic burst fracture at T11. She was also found to have possible urinary tract infection and she was subsequently started on Rocephin. She was seen by infectious disease he did clear her for surgical repair of her T11 fracture. She was seen by orthopedic surgery, she was unable to ambulate to due pain and requiring IV analgesia for pain control. Initially conservative management was again tried. However she did not have significant improvement in her pain by the morning of 11/26 and she subsequently underwent T11 kyphoplasty, vertebral body biopsy with Dr. rasheed. By the morning of 11/27 she was still having some low back pain. She was able to ambulate but required supervision with therapy. She was cleared by orthopedic surgery. Her diabetes and hypertension were well controlled. Her urine culture came back negative for urinary tract infection. She was determined stable for discharge. She will be discharged to medical [facility]. Patient seen and examined at bedside. Having some low back pain which is different than her prior pain. Was able to ambulate with therapy. No chest pain, shortness of breath, nausea, or vomiting. Vital signs reviewed and stable. General: non toxic, no distress, appears at stated age Derm: warm, dry Head: atraumatic, normocephalic, symmetric Eyes: EOMI, no lid lag, anicteric sclera Mouth: no lip lesion, mucus membranes moist Cardiovascular: S1S2 reg, no murmur, positive posterior tibial pulse bilateral, Lungs: CTA bilateral, no rhonchi, no rales , no accessory muscle use Abdominal: soft, nontender to palpation, no guarding, no appreciable organomegaly Psych: Alert, oriented, appropriate affect A total of 35 minutes of time were spent preparing this complex discharge summary . Patient Condition at Discharge: Stable Plan - Discharge Summary New Discharge Prescriptions: Continue ALPRAZolam 1 mg PO DAILY PRN PRN Reason: Anxiety lamoTRIgine 150 mg PO HS DULoxetine HCL [Cymbalta] 120 mg PO HS Insulin Glargine,Hum.rec.anlog [Lantus Solostar] 40 unit SQ HS Pramipexole [Mirapex] 1 mg PO HS Losartan Potassium [Cozaar] 25 mg PO HS Aspirin EC [Ecotrin Low Dose] 81 mg PO HS Albuterol Sulfate [Ventolin HFA] 1 - 2 puff INHALATION RT-Q6H PRN PRN Reason: Shortness Of Breath Fluticasone/Vilanterol [Breo Ellipta 100-25 Mcg Inhaler] 1 puff INHALATION RT-DAILY Multivitamins, Thera [Multivitamin (formulary)] 1 tab PO DAILY Biotin 5 mg PO HS Albuterol Nebulized [Ventolin Nebulized] 2.5 mg INHALATION RT-QID PRN #90 ampul PRN Reason: Shortness Of Breath Or Wheezing Insulin Aspart [NovoLOG Flexpen] 16 units SQ AC-TID Cyclobenzaprine [Flexeril] 5 mg PO TID PRN PRN Reason: Muscle Spasm Changed HYDROcodone/APAP 10-325MG [Tolley 10-325] 1 tab PO Q4HR PRN #21 tab PRN Reason: Pain Discontinued Dextroamphetamine/Amphetamine [Adderall Xr] 60 mg PO DAILY Ibuprofen [Motrin] 600 mg PO BID Insulin Aspart [NovoLOG Flexpen] 8 units SQ TID PRN PRN Reason: WITH SNACKS Discharge Medication List ALPRAZolam 1 mg PO DAILY PRN 10/20/16 [History] DULoxetine HCL [Cymbalta] 120 mg PO HS 10/20/16 [History] lamoTRIgine 150 mg PO HS 10/20/16 [History] Albuterol Sulfate [Ventolin HFA] 1 - 2 puff INHALATION RT-Q6H PRN 10/26/19 [History] Aspirin EC [Ecotrin Low Dose] 81 mg PO HS 10/26/19 [History] Biotin 5 mg PO HS 10/26/19 [History] Fluticasone/Vilanterol [Breo Ellipta 100-25 Mcg Inhaler] 1 puff INHALATION RT- DAILY 10/26/19 [History] Insulin Glargine,Hum.rec.anlog [Lantus Solostar] 40 unit SQ HS 10/26/19 [History] Losartan Potassium [Cozaar] 25 mg PO HS 10/26/19 [History] Multivitamins, Thera [Multivitamin (formulary)] 1 tab PO DAILY 10/26/19 [History] Pramipexole [Mirapex] 1 mg PO HS 10/26/19 [History] Albuterol Nebulized [Ventolin Nebulized] 2.5 mg INHALATION RT-QID PRN #90 ampul 10/31/19 [Rx] Cyclobenzaprine [Flexeril] 5 mg PO TID PRN 11/25/19 [History] Insulin Aspart [NovoLOG Flexpen] 16 units SQ AC-TID 11/25/19 [History] HYDROcodone/APAP 10-325MG [Tolley 10-325] 1 tab PO Q4HR PRN #21 tab 11/28/19 [Rx] Follow up Appointment(s)/Referral(s): Julien Stauffer DO [Doctor of Osteopathic Medicine] - 12/09/19 9:45 am Román Head MD [Primary Care Provider] - 12/04/19 3:00 pm Patient Instructions/Handouts: Kyphoplasty (PRE) Activity/Diet/Wound Care/Special Instructions: Activity: 1. Patient should avoid excessive bending, twisting, and lifting; no lifting greater than 10 pounds 2. Take medications as prescribed 3. Do not soak in tub until incision site is well healed Diet: carb consistent Wound Care: Samanth[place]oney, wet to dry rt foot ulcers daily Special Instructions: blood sugar three times daily Discharge Disposition: TRANSFER TO SNF/ECF
[2019-11-28 14:37] LABS: Appearance,Urine Clear (Clear); Bacteria,Urine Rare /hpf; Bilirubin,Urine Negative (Negative); Blood,Urine Trace (Negative); Color,Urine Yellow; Glucose,Urine (UA) Negative (Negative); Ketones,Urine Negative (Negative); Leukocyte Esterase,Urine Large (Negative); Mucus,Urine Rare /hpf; Nitrite,Urine Negative (Negative); Protein,Urine Trace (Negative); RBC,Urine 1 /hpf (0-5); Specific Gravity,Urine 1.019 (1.001-1.035); Squamous Epithelial Cell,Urine 5 /hpf (0-4); Urobilinogen,Urine <2.0 mg/dL (<2.0); WBC,Urine 7 /hpf (0-5)
[2019-11-28 15:02] VITALS: BP 160/77; PULSE 94; TEMP 98.2
== END 2019-11-28 16:16 | DRG 478 ==
LOC: EC 12:04 → 5NMEDONC 15:06 → 4SSUR 16:00
PROVIDERS: ADMIT Family Medicine; ATTEND Family Medicine
PROC: 5A09357 Assistance with Respiratory Ventilation, Less than 24 Consecutive Hours, Continuous Positive Airway Pressure (ICD-10-PCS; 2019-11-27)
PROC: 0P943ZX Drainage of Thoracic Vertebra, Percutaneous Approach, Diagnostic (ICD-10-PCS; principal; 2019-11-27 15:15)
PROC: 0PS43ZZ Reposition Thoracic Vertebra, Percutaneous Approach (ICD-10-PCS; principal; 2019-11-27 15:15)
PROC: 0PU43JZ Supplement Thoracic Vertebra with Synthetic Substitute, Percutaneous Approach (ICD-10-PCS; principal; 2019-11-27 15:15)
PROC: 0PB43ZX Excision of Thoracic Vertebra, Percutaneous Approach, Diagnostic (ICD-10-PCS; principal; 2019-11-27 15:15)
DX: S22.081A Stable burst fracture of T11-T12 vertebra, initial encounter for closed fracture (principal); E66.2 Morbid (severe) obesity with alveolar hypoventilation; Z68.42 Body mass index [BMI] 45.0-49.9, adult; J96.11 Chronic respiratory failure with hypoxia; G47.33 Obstructive sleep apnea (adult) (pediatric); K21.9 Gastro-esophageal reflux disease without esophagitis; E11.65 Type 2 diabetes mellitus with hyperglycemia; F32.9 Major depressive disorder, single episode, unspecified; F41.9 Anxiety disorder, unspecified; G25.81 Restless legs syndrome; Z96.653 Presence of artificial knee joint, bilateral; G89.29 Other chronic pain; E11.621 Type 2 diabetes mellitus with foot ulcer; J45.909 Unspecified asthma, uncomplicated; I11.0 Hypertensive heart disease with heart failure; I50.9 Heart failure, unspecified; M19.90 Unspecified osteoarthritis, unspecified site; Z11.59 Encounter for screening for other viral diseases; Z87.01 Personal history of pneumonia (recurrent); Z90.49 Acquired absence of other specified parts of digestive tract; Z79.4 Long term (current) use of insulin; Z88.8 Allergy status to other drugs, medicaments and biological substances; Z98.890 Other specified postprocedural states; Z90.710 Acquired absence of both cervix and uterus; Z87.891 Personal history of nicotine dependence; Z82.5 Family history of asthma and other chronic lower respiratory diseases; Z82.49 Family history of ischemic heart disease and other diseases of the circulatory system; Z83.6 Family history of other diseases of the respiratory system; Z91.81 History of falling
CPT/HCPCS: 71045; 72070; 72131; 80053; 81001; 85025; 85610; 85730; 87040; 87070; 87075; 87077; 87086; 87186; 87205; 88307; 93005; 96372; 96374; 99285

== ENCOUNTER → 2023-12-05 | Outpatient (CLI) | payer MEDICARE | END | disposition home or self-care (01) | LOC: LABPRL 15:50 | PROVIDERS: ATTEND Family Medicine | DX: B99.9 Unspecified infectious disease (principal) | CPT/HCPCS: 80048 ==